=== PATIENT | female | born 1975 | race Caucasian/White ===

== ENCOUNTER → 2018-01-10 | Outpatient (CLI) | payer OTHER ==
--- NOTE | 2018-01-10 11:45 | US ---
EXAMINATION TYPE: US pelvis complete transvag DATE OF EXAM: 01/10/2018 COMPARISON: NONE CLINICAL HISTORY: R10.2 Pelvic Pain. Pain, hx of ablation x a few years ago, no menses TECHNIQUE: . Transabdominal sonographic images of the pelvis were acquired. Transvaginal sonographi c images were medically necessary to better assess the following anatomy: Uterus and endometrium. Date of LMP: Unknown, EXAM MEASUREMENTS: Uterus: 9.2 x 4.5 x 4.4 cm Endometrial Stripe: 0.5 cm Right Ovary: 3.1 x 2.0 x 1.9 cm Left Ovary: 3.2 x 2.1 x 2.1 cm 1. Uterus: Anteverted Heterogenous. Multiple lesions seen. 1- right fundal cystic appearing lesi on = 0.7 x 0.8 x 0.7 cm. 2- right fundal hypoechoic lesion = 1.9 x 2.1 x 1.6 cm 2. Endometrium: Not well delineated, appears heterogenous with echogenic areas seen. 3. Right Ovary: follicles seen 4. Left Ovary: follicles seen, only seen transabdominally 5. Bilateral Adnexa: wnl 6. Posterior cul-de-sac: no free fluid Cervix- fluid seen in cervical canal IMPRESSION: 1. Uterine fibroids.
== END | disposition home or self-care (01) ==
LOC: RADUSWWP 10:22
PROVIDERS: ATTEND Obstetrics & Gynecology
DX: D25.9 Leiomyoma of uterus, unspecified (principal)
CPT/HCPCS: 76830; 76856

== ENCOUNTER → 2018-11-13 | Outpatient (CLI) | payer OTHER ==
--- NOTE | 2018-11-13 12:03 | CONS ---
CONSULTATION DATE OF SERVICE: 11/13/2017 A 43-year-old lady who has been evaluated [facility] the [facility] for possible obstructive sleep apnea-hypopnea syndrome and sleepiness. HISTORY OF PRESENT ILLNESS/SLEEP-WAKE EVALUATION: Patient's usual sleep schedule from 11:30 p.m. to 6 a.m. Usually no problems with falling asleep. No TV in bedroom. She sleeps with her with loud snoring and awakenings from sleep around 5 times with one episode of nocturia. The patient is able to see dreams during the night. She is not sure that happened at the beginning of the night of the second part of the night. During the day, she may feel sleepy. [place] Sleepiness Scale increased to 11. She takes naps usually around 2 pm. She is seeing dreams during naps. PAST MEDICAL HISTORY: Basically negative. Recent episodes of hot flashes. PAST SURGICAL HISTORY: 1. Status post uterus ablation in 2000. 2. Tubal ligation. MEDICATIONS: None. SOCIAL HISTORY: Negative for smoking or using alcohol. FAMILY HISTORY: Snoring and during the sleep of her mother. PHYSICAL EXAM: lady without distress BP 103/69, HR 73, RR 16, height 5, 4, weight 171.2. Body mass index 29.3, temperature 99.0, oxygen saturation at room air 99%. Oropharynx extremely low position of soft palate. Mallampati 4. Slight restriction of nasal breathing bilaterally. Neck 14-1/4 inches in circumference. Abdomen: Slightly obese. Neck Supple, no JVD. Thyroid is not palpable. LUNGS Clear to percussion and to auscultation. Good air exchange. No wheezing or rhonchi. HEART S1, S2 regular. No murmurs, gallops, or rubs. EXTREMITIES No clubbing or cyanosis. [employer] Awake, alert, and oriented X3. Cranial nerves 2 to 7 intact. There is no fasciculation or atrophy. noted. No focal deficits observed. IMPRESSION: 1. Snoring, multiple awakenings from sleep with episodes of nocturia, extremely low position of soft palate, some restriction of nasal breathing, possible obstructive sleep apnea-hypopnea syndrome. 2. Excessive daytime sleepiness. Positive history of dreams during naps. Differential diagnosis would include hypersomnia. 3. Overweight. Body mass index 29.3. 4. Status post uterus ablation and tubal ligation. 5. Hot flashes during the sleep. PLAN: 1. Polysomnography for evaluation of patient's breathing during sleep. 2. CPAP/BiPAP titration if sleep study confirms obstructive sleep apnea-hypopnea syndrome. 3. Referable position during sleep on the side. 4. No driving if patient feels any sleepiness. 5. I will see patient for follow up visit to explain results of testing and following plan. 6. Rico Anderson MD, PhD, FAASM Diplomat of [employer] [facility] [facility] Just take plan from my template in addition to that this put multiple sleep latency test. Thank you very much for referring this patient for consultation. Sincerely. Rico Anderson MD, PhD, FAASM Diplomat of [employer] [facility] [facility] MMODL / DEVONN: [id number] /
== END ==
LOC: SLEEP 10:08
PROVIDERS: ATTEND Internal Medicine
DX: R06.83 Snoring (principal); E66.3 Overweight; N95.1 Menopausal and female climacteric states; Z98.890 Other specified postprocedural states; Z68.29 Body mass index [BMI] 29.0-29.9, adult
CPT/HCPCS: 99211

== ENCOUNTER → 2019-04-09 | Outpatient (CLI) | payer OTHER ==
--- NOTE | 2019-04-09 11:47 | MM ---
Reason for exam: screening (asymptomatic). Last mammogram was performed 2 years and 3 months ago. History: Family history of breast cancer in mother at age 40. Took hormonal contraceptives for 2 years. Physical Findings: A clinical breast exam by your physician is recommended on an annual basis and results should be correlated with mammographic findings. MG Screening Mammo w CAD Bilateral CC and MLO view(s) were taken. Prior study comparison: December 27, 2016, mammogram, performed at [facility]. November 17, 2015, mammogram, performed at [facility]. The breast tissue is heterogeneously dense. This may lower the sensitivity of mammography. No suspicious abnormality on the right. Left upper outer quadrant middle depth focal asymmetry. ASSESSMENT: Incomplete: need additional imaging evaluation, BI-RAD 0 RECOMMENDATION: Special view mammogram of the left breast. If lesion persists on supplemental views, image directed ultrasound is recommended. [facility] will attempt to contact patient to return for supplemental views and ultrasound if indicated.
== END | disposition home or self-care (01) ==
LOC: RADMAMWWP 08:01
PROVIDERS: ATTEND Obstetrics & Gynecology
DX: Z12.31 Encounter for screening mammogram for malignant neoplasm of breast (principal)
CPT/HCPCS: 77067

== ENCOUNTER → 2019-04-16 | Outpatient (CLI) | payer OTHER ==
--- NOTE | 2019-04-16 09:44 | MM ---
Reason for exam: additional evaluation requested from abnormal screening. Last mammogram was performed less than 1 month ago. History: Family history of breast cancer in mother at age 40. Took hormonal contraceptives for 2 years. Physical Findings: Nurse did not find any significant physical abnormalities on exam. MG Work Up Mamm w CAD LT Spot compression CC, spot compression MLO, and ML view(s) were taken of the left breast. Prior study comparison: April 09, 2019, bilateral MG screening mammo w CAD. December 27, 2016, mammogram, performed at [facility]. The breast tissue is heterogeneously dense. This may lower the sensitivity of mammography. The previously seen abnormality resolves on additional views and appears as fibroglandular tissue compatible with summation. Similar to priors back to 2016. These results were verbally communicated with the patient and result sheet given to the patient on 04/16/19. ASSESSMENT: Benign, BI-RAD 2 RECOMMENDATION: Return to routine screening mammogram schedule for both breasts.
== END | disposition home or self-care (01) ==
LOC: RADMAMWWP 08:04
PROVIDERS: ATTEND Obstetrics & Gynecology
DX: R92.8 Other abnormal and inconclusive findings on diagnostic imaging of breast (principal)
CPT/HCPCS: 77065

== ENCOUNTER 2019-06-11 13:59 | Inpatient (IN) | payer OTHER ==
[2019-06-11] MEDS ORDERED: ONDANSETRON 4 MG/2 ML VIAL IVP STA (15:01)
[2019-06-11] MEDS ORDERED: SODIUM CHLORIDE 0.9% 1,000 ML IV STA (15:01)
[2019-06-11] MEDS ORDERED: KETOROLAC 30 MG/ML 1 ML VIAL IVP STA (15:01)
[2019-06-11] MEDS ORDERED: ACETAMINOPHEN TAB 500 MG TAB PO STA (15:01)
[2019-06-11 15:40] LABS: Basophils % (A) 0 %; Eosinophils # (A) 0.1 k/uL (0-0.7); Eosinophils % (A) 1 %; HCT 37.4 % (34.0-46.0); HGB 12.2 gm/dL (11.4-16.0); Lymphocytes # (A) 0.8 k/uL (1.0-4.8); Lymphocytes % (A) 5 %; MCH 27.2 pg (25.0-35.0); MCHC 32.7 g/dL (31.0-37.0); MCV 83.3 fL (80.0-100.0); Mean Platelet Volume 6.6; Monocytes # (A) 0.7 k/uL (0-1.0); Monocytes % (A) 4 %; Neutrophils # (A) 17.2 k/uL (1.3-7.7); Neutrophils % (A) 91 %; Platelet Count 401 k/uL (150-450); RBC 4.48 m/uL (3.80-5.40); RDW 15.3 % (11.5-15.5); WBC 18.9 k/uL (3.8-10.6)
[2019-06-11 15:43] LABS: Appearance,Urine Cloudy (Clear); Bacteria,Urine Moderate /hpf; Bilirubin,Urine Negative (Negative); Blood,Urine Negative (Negative); Color,Urine Yellow; Glucose,Urine (UA) Negative (Negative); Ketones,Urine 1+ (Negative); Leukocyte Esterase,Urine Moderate (Negative); Mucus,Urine Many /hpf; Nitrite,Urine Negative (Negative); Protein,Urine Negative (Negative); RBC,Urine 2 /hpf (0-5); Specific Gravity,Urine 1.015 (1.001-1.035); Squamous Epithelial Cell,Urine 6 /hpf (0-4); Urobilinogen,Urine <2.0 mg/dL (<2.0)
[2019-06-11 15:47] LABS: ALT 10 U/L (9-52); AST 17 U/L (14-36); African American GFR (CKD) >90 (>60 ml/min/1.73 sqM); Albumin 4.3 g/dL (3.5-5.0); Alkaline Phosphatase 50 U/L (38-126); Anion Gap 12 mmol/L; Blood Urea Nitrogen 7 mg/dL (7-17); Calcium 9.3 mg/dL (8.4-10.2); Carbon Dioxide 24 mmol/L (22-30); Chloride 101 mmol/L (98-107); Glucose 125 mg/dL (74-99); Potassium 3.9 mmol/L (3.5-5.1); Sodium 137 mmol/L (137-145); Total Bilirubin 0.9 mg/dL (0.2-1.3); Total Protein 7.2 g/dL (6.3-8.2)
--- NOTE | 2019-06-11 16:09 | CT ---
EXAMINATION TYPE: CT abdomen pelvis w con DATE OF EXAM: 06/11/2019 COMPARISON: Pelvic pain and fever HISTORY: Pelvic pain with fever. CT DLP: 847.8 mGycm Automated exposure control for dose reduction was used. CONTRAST: CT scan of the abdomen pelvis is performed with IV Contrast, patient injected with 100 mL of Isovue 3 00. FINDINGS- LUNG BASES-subsegmental changes involving the lung bases are suggestive of atelectasis.. LIVER/GB- No gross abnormality is appreciated. PANCREAS- No gross abnormality is seen. SPLEEN- No gross abnormality is seen. ADRENALS- No gross abnormality is seen. KIDNEYS/BLADDER- no hydronephrosis nephrolithiasis or renal mass. BOWEL-there is inflammatory change within the pelvis with thickened wall the sigmoid colon and divert icula in the region suggestive of acute diverticulitis. Appendix appears of normal caliber. No eviden ce of bowel obstruction.. LYMPH NODES- No greater than 1cm abdominal or pelvic lymph nodes are appreciated. Shotty adenopathy in the mesentery right lower quadrant. OSSEOUS STRUCTURES- No significant abnormality is seen. OTHER- aorta of normal caliber. There is a cyst in the left adnexa likely ovarian measuring approxim ately 2 cm. Tiny hypodensity within the uterine body is too small to characterize. Trace amount of fr ee fluid in the pelvis. There is small amount soft tissue attenuation anterior to the left so as musc le which could represent a small lymph node or small amount of free fluid best noted on axial image 5 8 measuring 1.4 cm. There is a retroaortic left renal vein. IMPRESSION- 1. Acute sigmoid diverticulitis. There is a 2 cm cystic lesion left adnexa which is likely related to an ovarian cyst rather than adjacent abscess. Correlation with pelvic ultrasound suggested to confir m ovarian etiology. 2. There is a 1.4 cm low density anterior to left psoas muscle axial image 57 may represent a small f luid collection or lymph node. This this could be followed to resolution.
--- NOTE | 2019-06-11 16:28 | ED ---
Abdominal Pain HPI - General Source: RN notes reviewed <Walt Sesay - Last Filed: 06/11/19 17:01> - General Source: patient Mode of arrival: wheelchair Limitations: no limitations <Christina Bobo - Last Filed: 06/11/19 19:11> - General Chief Complaint: Abdominal Pain Stated Complaint: Abd pain, fever Time Seen by Provider: 06/11/19 14:46 - History of Present Illness Initial Comments: Patient is a 44-year-old female presenting to the emergency Department with complaints of lower abdominal pain and fever 2 days. Patient states her abdominal pain started yesterday on the way back from [place]. Patient states it was tolerable at first and then has progressed to severe pain. Patient states the pain has always been in the lower abdomen, all the way across. Patient denies any abdominal surgeries in the past. Patient states the pain w alannah her up last night and she was unable to sleep. Patient took her temperature this morning which was 101 deg. Patient also admits to one episode of vomiting and current nausea. Patient states she had an ablation performed over 10 years ago. Patient has no other pertinent past medical history. Patient denies chest pain, cough, diarrhea. Patient's last bowel movement was today and was normal. No other complaints at this time. (Christina Bobo) - Related Data Home Medications Medication Instructions Recorded Confirmed No Known Home Medications 06/11/19 06/11/19 Allergies Allergy/AdvReac Type Severity Reaction Status Date / Time No Known Allergies Allergy Verified 06/11/19 14:46 Review of Systems ROS Other: All systems not noted in ROS Statement are negative. <Walt Sesay - Last Filed: 06/11/19 17:01> ROS Other: All systems not noted in ROS Statement are negative. <Christina Bobo - Last Filed: 06/11/19 19:11> ROS Statement: Those systems with pertinent positive or pertinent negative responses have been documented in the HPI. Past Medical History Past Medical History: No Reported History History of Any Multi-Drug Resistant Organisms: None Reported Past Surgical History: Ablation, Tubal Ligation Past Psychological History: No Psychological Hx Reported Smoking Status: Never smoker Past Alcohol Use History: None Reported Past Drug Use History: None Reported <Christina Bobo - Last Filed: 06/11/19 19:11> General Exam Limitations: no limitations <Christina Bobo - Last Filed: 06/11/19 19:11> - General Exam Comments Initial Comments: GENERAL: Well-appearing, well-nourished and in no acute distress, but appears uncomfortable. HEAD: Atraumatic, normocephalic. EYES: Pupils equal round and reactive to light, extraocular movements intact, sclera anicteric, conjunctiva are normal. ENT: TMs normal, nares patent, oropharynx clear without exudates. Moist mucous membranes. NECK: Normal range of motion, supple without lymphadenopathy or JVD. LUNGS: Breath sounds clear to auscultation bilaterally and equal. No wheezes rales or rhonchi. HEART: Regular rate and rhythm without murmurs, rubs or gallops. ABDOMEN: Patient has generalized abdominal tenderness, more increase in the lower abdomen region. Soft, normoactive bowel sounds. No rebound. No masses appreciated. : Deferred EXTREMITIES: Normal range of motion, no pitting or edema. No clubbing or cyanosis. NEUROLOGICAL: Cranial nerves II through XII grossly intact. Normal speech, normal gait. PSYCH: Normal mood, normal affect. SKIN: Warm, Dry, slightly diaphoretic, normal turgor, no rashes or lesions noted. (Christina Bobo) Course <Walt Sesay - Last Filed: 06/11/19 17:01> Vital Signs 06/11/19 06/11/19 06/11/19 14:27 16:29 17:38 Temperature 102.9 F H 99.2 F 98.9 F Pulse Rate 115 H 95 91 Respiratory 16 20 18 Rate Blood Pressure 103/70 94/58 99/55 O2 Sat by Pulse 97 95 98 Oximetry - Reevaluation(s) Reevaluation #1: 06/11/19 17:01 PA supervision: I proceeded [id number] evaluation the patient she does present with complaints of abdominal pain is started yesterday he does present with complaints of fever she has have elevated white blood cell count and CAT scan evidence of diverticulitis of the sigmoid colon. She will be admitted I did discuss the case with Dr. Brantley. (Walt Sesay) Medical Decision Making - Lab Data Result diagrams: 06/11/19 15:20 06/11/19 15:20 <Walt Sesay - Last Filed: 06/11/19 17:01> - Lab Data Result diagrams: 06/11/19 15:20 06/11/19 15:20 <Christina Bobo - Last Filed: 06/11/19 19:11> - Medical Decision Making Patient is a 44-year-old female complaining of lower abdominal pain and nausea since yesterday. Upon arrival to the ER patient had 102.9 fever, heart rate 115, and appeared to be in a lot of discomfort. On exam patient had severe tenderness of the lower abdominal region. Denies history of abdominal surgeries. CBC showed white count 18.9, neutrophils 17.2. CMP is within normal limits. Lactic acid is 1.1. UA shows 10 WBC, moderate amount of bacteria, 1+ ketones. CT of the abdomen reveals acute sigmoid diverticulitis. Findings were discussed with Dr. Sesay. Patient will be admitted for IV antibiotics. Patient was given Toradol, fluids, Tylenol. Vital signs did improve to temperature of 99.2, heart rate 95. Blood pressure is 94/58. Patient was accepted by Dr. Brantley. One dose of Flagyl and Levaquin was started in the ER. (Christina Bobo) - Lab Data Lab Results 06/11/19 06/11/19 06/11/19 Range/Units 15:20 15:20 15:20 WBC 18.9 H (3.8-10.6) k/uL RBC 4.48 (3.80-5.40) m/uL Hgb 12.2 (11.4-16.0) gm/dL Hct 37.4 (34.0-46.0) % MCV 83.3 (80.0-100.0) fL MCH 27.2 (25.0-35.0) pg MCHC 32.7 (31.0-37.0) g/dL RDW 15.3 (11.5-15.5) % Plt Count 401 (150-450) k/uL Neutrophils % 91 % Lymphocytes % 5 % Monocytes % 4 % Eosinophils % 1 % Basophils % 0 % Neutrophils # 17.2 H (1.3-7.7) k/uL Lymphocytes # 0.8 L (1.0-4.8) k/uL Monocytes # 0.7 (0-1.0) k/uL Eosinophils # 0.1 (0-0.7) k/uL Basophils # 0.0 (0-0.2) k/uL Sodium 137 (137-145) mmol/L Potassium 3.9 (3.5-5.1) mmol/L Chloride 101 (98-107) mmol/L Carbon Dioxide 24 (22-30) mmol/L Anion Gap 12 mmol/L BUN 7 (7-17) mg/dL Creatinine 0.44 L (0.52-1.04) mg/dL Est GFR (CKD-EPI)AfAm >90 (>60 ml/min/1.73 sqM) Est GFR (CKD-EPI)NonAf >90 (>60 ml/min/1.73 sqM) Glucose 125 H (74-99) mg/dL Plasma Lactic Acid Dewayne (0.7-2.0) mmol/L Calcium 9.3 (8.4-10.2) mg/dL Total Bilirubin 0.9 (0.2-1.3) mg/dL AST 17 (14-36) U/L ALT 10 (9-52) U/L Alkaline Phosphatase 50 (38-126) U/L Total Protein 7.2 (6.3-8.2) g/dL Albumin 4.3 (3.5-5.0) g/dL Urine Color Urine Appearance (Clear) Urine pH (5.0-8.0) Ur Specific [place] (1.001-1.035) Urine Protein (Negative) Urine Glucose (UA) (Negative) Urine Ketones (Negative) Urine Blood (Negative) Urine Nitrite (Negative) Urine Bilirubin (Negative) Urine Urobilinogen (<2.0) mg/dL Ur Leukocyte Esterase (Negative) Urine RBC (0-5) /hpf Urine WBC (0-5) /hpf Ur Squamous Epith Cells (0-4) /hpf Urine Bacteria (None) /hpf Urine Mucus (None) /hpf Urine HCG, Qual Not Detected (Not Detectd) 06/11/19 06/11/19 Range/Units 15:20 15:20 WBC (3.8-10.6) k/uL RBC (3.80-5.40) m/uL Hgb (11.4-16.0) gm/dL Hct (34.0-46.0) % MCV (80.0-100.0) fL MCH (25.0-35.0) pg MCHC (31.0-37.0) g/dL RDW (11.5-15.5) % Plt Count (150-450) k/uL Neutrophils % % Lymphocytes % % Monocytes % % Eosinophils % % Basophils % % Neutrophils # (1.3-7.7) k/uL Lymphocytes # (1.0-4.8) k/uL Monocytes # (0-1.0) k/uL Eosinophils # (0-0.7) k/uL Basophils # (0-0.2) k/uL Sodium (137-145) mmol/L Potassium (3.5-5.1) mmol/L Chloride (98-107) mmol/L Carbon Dioxide (22-30) mmol/L Anion Gap mmol/L BUN (7-17) mg/dL Creatinine (0.52-1.04) mg/dL Est GFR (CKD-EPI)AfAm (>60 ml/min/1.73 sqM) Est GFR (CKD-EPI)NonAf (>60 ml/min/1.73 sqM) Glucose (74-99) mg/dL Plasma Lactic Acid Dewayne 1.1 (0.7-2.0) mmol/L Calcium (8.4-10.2) mg/dL Total Bilirubin (0.2-1.3) mg/dL AST (14-36) U/L ALT (9-52) U/L Alkaline Phosphatase (38-126) U/L Total Protein (6.3-8.2) g/dL Albumin (3.5-5.0) g/dL Urine Color Yellow Urine Appearance Cloudy H (Clear) Urine pH 5.0 (5.0-8.0) Ur Specific [place] 1.015 (1.001-1.035) Urine Protein Negative (Negative) Urine Glucose (UA) Negative (Negative) Urine Ketones 1+ H (Negative) Urine Blood Negative (Negative) Urine Nitrite Negative (Negative) Urine Bilirubin Negative (Negative) Urine Urobilinogen <2.0 (<2.0) mg/dL Ur Leukocyte Esterase Moderate H (Negative) Urine RBC 2 (0-5) /hpf Urine WBC 10 H (0-5) /hpf Ur Squamous Epith Cells 6 H (0-4) /hpf Urine Bacteria Moderate H (None) /hpf Urine Mucus Many H (None) /hpf Urine HCG, Qual (Not Detectd) Disposition <Walt Sesay - Last Filed: 06/11/19 17:01> Is patient prescribed a controlled substance at d/c from ED?: No Decision Date: 06/11/19 Decision Time: 17:05 <Christina Bobo - Last Filed: 06/11/19 19:11> Clinical Impression: Sigmoid diverticulitis Disposition: ADMITTED IP TO THIS HOSP Condition: Good
[2019-06-11] MEDS ORDERED: PIPERACILLIN-TAZOBACTAM 3.375 GM in SODIUM CHLORIDE 0.9% 100 ML IVPB STA (16:50)
[2019-06-11] MEDS ORDERED: LEVOFLOXACIN 750MG-D5W PMX 750 MG in DEXTROSE/WATER 1 150ML.BAG IVPB STA (17:04)
[2019-06-11] MEDS ORDERED: ACETAMINOPHEN TAB 325 MG TAB PO PRN (17:06)
[2019-06-11] MEDS ORDERED: oxyCODONE-APAP 5-325MG 1 EACH TAB PO PRN (17:06)
[2019-06-11] MEDS ORDERED: metroNIDAZOLE-NS PMX 500 MG in SALINE 1 100ML.BAG IVPB STA (17:06)
[2019-06-11] MEDS ORDERED: NALOXONE 0.4 MG/ML 1 ML VIAL IV PRN (17:06)
[2019-06-11] MEDS ORDERED: ONDANSETRON 4 MG/2 ML VIAL IVP PRN (17:06)
[2019-06-11] MEDS: SODIUM CHLORIDE 0.9% 1,000 ML IV SCH (17:45)
[2019-06-12] MEDS: KETOROLAC 30 MG/ML 1 ML VIAL IVP PRN ×2 (08:36→20:38)
[2019-06-12] MEDS: metroNIDAZOLE-NS PMX 500 MG in SALINE 1 100ML.BAG IVPB SCH ×2 (08:45→17:11)
[2019-06-12] MEDS: LEVOFLOXACIN 500MG-D5W PMX 500 MG in DEXTROSE/WATER 1 100ML.BAG IVPB SCH (09:59)
--- NOTE | 2019-06-12 14:33 | P.HPIM ---
History of Present Illness H&P Date: 06/12/19 Chief Complaint: Abdominal pain This is a 44-year-old female patient of Dr. Odonnell with no significant past medical history. The patient developed abdominal pain Saturday afternoon and by nighttime the pains were waking her up. In the morning she was feeling worse. Pain was worse when she ambulated. By 1 in the afternoon she felt hot and she checked her temperature which was 101. She does complain of some bloating with a little gas. Her last bowel movement was yesterday morning. She denies any blood in her stools. She denies any seeds or nuts intake lately. She denies any nonsteroidal anti-inflammatories. Patient denies any dysuria. She does complain of bilateral low abdominal/pelvic pain. She does have increased pain with deep breathing. She has had multiple colonoscopies in the past starting at 13 years of age which haven't had no s ignificant findings.. Patient presented to [facility] emergency center and was found to be febrile at 102.9, white count 18.9, electrolytes within normal limits, liver function tests normal, urine hCG was negative. Urinalysis was leukoesterase moderate, squamous cells 6, bacteria moderate. Lactic acid 1.1. CAT scan of the abdomen and pelvis revealed acute sigmoid diverticulitis. 2 cm cystic lesion in the left adnexa which is likely related to ovarian cysts rather than abscess. There is a 1.4 cm low density anterior to left psoas muscle may represent small fluid collection or lymph node. Patient was started on Levaquin, Flagyl as well as Zofran for nausea, she received 1 L of IV fluids and admitted to the MedSur floor. She was started on clear liquid diet. Blood c ulture has been obtained. Review of Systems Constitutional: Reports chills, Reports fever, Denies chronic headaches, Denies fatigue, Denies lethargy, Denies malaise, Denies poor appetite, Denies weakness, Denies weight loss Ears, nose, mouth and throat: Denies dysphagia, Denies mouth pain, Denies nasal congestion, Denies nasal discharge, Denies vertigo Cardiovascular: Denies chest pain, Denies decreased exercise tolerance, Denies dyspnea on exertion, Denies edema, Denies leg edema, Denies lightheadedness, Denies orthopnea, Denies palpitations, Denies shortness of breath, Denies syncope Respiratory: Denies congestion, Denies cough, Denies cough with sputum, Denies dyspnea, Denies excessive sputum, Denies hemoptysis, Denies home oxygen, Denies wheezing Gastrointestinal: Reports abdominal pain, Reports bloating, Reports nausea, Denies constipation, Denies diarrhea, Denies vomiting Genitourinary: Denies dysuria, Denies hematuria, Denies urgency, Denies urinary frequency Musculoskeletal: Denies frequent falls, Denies gait dysfunction, Denies muscle weakness, Denies myalgias Integumentary: Denies pruritus, Denies rash, Denies wounds Neurological: Denies aphasia, Denies change in mentation, Denies change in speech, Denies confusion, Denies numbness, Denies seizures, Denies weakness Psychiatric: Denies anxiety, Denies depression Endocrine: Denies fatigue, Denies weight change Past Medical History Past Medical History: No Reported History History of Any Multi-Drug Resistant Organisms: None Reported Past Surgical History: Ablation, Tubal Ligation Past Psychological History: No Psychological Hx Reported Smoking Status: Never smoker Past Alcohol Use History: None Reported Additional Past Alcohol Use History / Comment(s): Patient is a lifelong nonsmoker, no illicit drug use, no alcohol use. Patient is a [id number] mom. She has 2 boys that were premature but have no medical problems. Past Drug Use History: None Reported - Past Family History Father Additional Family Medical History / Comment(s): Patient does not know her father. Mother Additional Family Medical History / Comment(s): Mother at age 45 from myocardial infarction. Brother(s) Additional Family Medical History / Comment(s): Patient has 1 brother with no major medical problems. No sisters. Medications and Allergies Home Medications Medication Instructions Recorded Confirmed Type No Known Home Medications 06/11/19 06/11/19 History Allergies Allergy/AdvReac Type Severity Reaction Status Date / Time No Known Allergies Allergy Verified 06/11/19 14:46 Physical Exam Vitals: Vital Signs Temp Pulse Pulse Resp BP BP Pulse Ox 06/12/19 06:53 98.0 F 85 16 105/54 93 L 06/12/19 01:17 98.5 F 82 17 104/66 99 06/11/19 23:12 85 17 06/11/19 19:30 98.2 F 85 17 94/60 97 06/11/19 18:00 98.9 F 79 16 95/62 96 06/11/19 17:38 98.9 F 91 18 99/55 98 06/11/19 16:29 99.2 F 95 20 94/58 95 06/11/19 14:27 102.9 F H 115 H 16 103/70 97 Intake and Output 06/11/19 06/12/19 06/12/19 22:59 06:59 14:59 Other: Voiding Method Toilet # Voids 0 # Bowel Movements 0 Gen: This is a obese 44-year-old female. Patient is resting in bed and appears to be comfortable and in no acute distress. HEENT: Head is atraumatic, normocephalic. Pupils equal, round. Sclerae is anicteric. NECK: Supple. No JVD. No lymphadenopathy. No thyromegaly. LUNGS: Clear to auscultation. No wheezes or rhonchi. No intercostal retractions. HEART: Regular rate and rhythm. No murmur. ABDOMEN: Soft. Bowel sounds are present. No masses. Mild lower abdominal tenderness. EXTREMITIES: No pedal edema. No calf tenderness. NEUROLOGICAL: Patient is awake, alert and oriented x3. Cranial nerves 2 through 12 are grossly intact. Results CBC & Chem 7: 06/11/19 15:20 06/11/19 15:20 Labs: Abnormal Lab Results - Last 24 Hours (Table) 06/11/19 06/11/19 06/11/19 Range/Units 15:20 15:20 15:20 WBC 18.9 H (3.8-10.6) k/uL Neutrophils # 17.2 H (1.3-7.7) k/uL Lymphocytes # 0.8 L (1.0-4.8) k/uL Creatinine 0.44 L (0.52-1.04) mg/dL Glucose 125 H (74-99) mg/dL Urine Appearance Cloudy H (Clear) Urine Ketones 1+ H (Negative) Ur Leukocyte Esterase Moderate H (Negative) Urine WBC 10 H (0-5) /hpf Ur Squamous Epith Cells 6 H (0-4) /hpf Urine Bacteria Moderate H (None) /hpf Urine Mucus Many H (None) /hpf Thrombosis Risk Factor Assmnt - DVT/VTE Prophylaxis DVT/VTE Prophylaxis: Mechanical Prophylaxis ordered - Choose All That Apply Any of the Below Risk Factors Present?: Yes Each Factor Represents 1 point: Age 41-60 years, Obesity (BMI >25) Other Risk Factors: No Thrombosis Risk Factor Assessment Total Risk Factor Score: 2 Thrombosis Risk Factor Assessment Level: Low Risk Assessment and Plan Plan: 1. Acute diverticulitis. Patient admitted to the MedSur floor, continue Zofran for nausea. Continue Toradol for pain control. Patient resumed on Levaquin and Flagyl IV piggyback. Continue IV fluids. Diet is currently clear liquids. 2. Sepsis with leukocytosis and fever secondary to diverticulitis. Continue as in #1. 3. Hyperglycemia with no history of diabetes. 4. DVT prophylaxis. SCDs and KWAME hose. 5. GI prophylaxis. IV Protonix. Patient will be admitted to the hospital for a minimum of 2 night stay. Discharge plan: Return home Impression and plan of care have been directed as dictated by the signing physician. Opal Ni nurse practitioner acting as scribe for signing physician.
[2019-06-12] MEDS: SODIUM CHLORIDE 0.9% 1,000 ML IV SCH (14:34)
[2019-06-13] MEDS: metroNIDAZOLE-NS PMX 500 MG in SALINE 1 100ML.BAG IVPB SCH ×3 (00:39→16:28)
[2019-06-13] MEDS: LEVOFLOXACIN 500MG-D5W PMX 500 MG in DEXTROSE/WATER 1 100ML.BAG IVPB SCH (09:24)
[2019-06-13] MEDS: SODIUM CHLORIDE 0.9% 1,000 ML IV SCH ×2 (09:25→16:33)
[2019-06-13 09:37] LABS: HCT 34.6 % (34.0-46.0); HGB 10.9 gm/dL (11.4-16.0); MCH 27.3 pg (25.0-35.0); MCHC 31.7 g/dL (31.0-37.0); MCV 86.1 fL (80.0-100.0); Mean Platelet Volume 6.7; Platelet Count 334 k/uL (150-450); RBC 4.02 m/uL (3.80-5.40); RDW 15.3 % (11.5-15.5); WBC 6.8 k/uL (3.8-10.6)
--- NOTE | 2019-06-13 10:01 | P.GSCN ---
History of Present Illness Consult date: 06/13/19 History of present illness: 44-year-old female presented to the emergency department with complaints of abdominal pain. She states that she began feeling abdominal pain on Saturday and the pain worsened throughout the day. She also developed a fever and then presented to the emergency department. On workup, the patient was found to have inflammatory changes around the colon suspicious for diverticulitis. She states that since that time she is only had flatus and denies any bowel movement. She denies any nausea or vomiting. She states that she has had 2 colonoscopies in the past, one when she was 13 years old and one greater than 10 years ago due to suspicion of colitis. She denies any family history of colon cancer, however states she does not know her father's side of the family. She has no additional complaints at this time. Currently afebrile. Review of Systems All systems: negative Past Medical History Past Medical History: No Reported History History of Any Multi-Drug Resistant Organisms: None Reported Past Surgical History: Ablation, Tubal Ligation Past Psychological History: No Psychological Hx Reported Smoking Status: Never smoker Past Alcohol Use History: None Reported Additional Past Alcohol Use History / Comment(s): Patient is a lifelong nonsmoker, no illicit drug use, no alcohol use. Patient is a [id number] mom. She has 2 boys that were premature but have no medical problems. Past Drug Use History: None Reported - Past Family History Father Additional Family Medical History / Comment(s): Patient does not know her father. Mother Additional Family Medical History / Comment(s): Mother at age 45 from myocardial infarction. Brother(s) Additional Family Medical History / Comment(s): Patient has 1 brother with no major medical problems. No sisters. Medications and Allergies Home Medications Medication Instructions Recorded Confirmed Type No Known Home Medications 06/11/19 06/11/19 History Allergies Allergy/AdvReac Type Severity Reaction Status Date / Time No Known Allergies Allergy Verified 06/11/19 14:46 Surgical - Exam Osteopathic Statement: *. No significant issues noted on an osteopathic structural exam other than those noted in the History and Physical/Consult. Vital Signs Temp Pulse Resp BP Pulse Ox 102.9 F H 115 H 16 103/70 97 06/11/19 14:27 06/11/19 14:27 06/11/19 14:27 06/11/19 14:27 06/11/19 14:27 - General well nourished, no distress - Eyes PERRL - ENT no hearing loss - Neck trachea midline - Respiratory No difficulty with respiration - Abdomen Soft, tender to palpation in bilateral lower quadrants, mild distention, no rebound, no guarding - Psychiatric oriented to time, oriented to person, oriented to place Results - Labs 06/13/19 09:21 06/11/19 15:20 Abnormal Lab Results - Last 24 Hours (Table) 06/13/19 Range/Units 09:21 Hgb 10.9 L (11.4-16.0) gm/dL Microbiology - Last 24 Hours (Table) 06/12/19 13:00 Urine Culture - Preliminary Urine,Voided 06/11/19 15:15 Blood Culture - Preliminary Blood No Growth after 24 hours - Imaging CT scan - abdomen: report reviewed, image reviewed CT scan - chest: report reviewed, image reviewed (Inflammatory changes surrounding the sigmoid colon, ovarian cyst) Assessment and Plan (1) Sigmoid diverticulitis Narrative/Plan: 44-year-old female with sigmoid diverticulitis - I did review the imaging and there are inflammatory changes noted around the s igmoid colon in the midportion of the pelvis. There does also appear to be a cystlike structure in the adnexa. This is less likely an abscess, however ultrasound may give a more complete cancer. She is scheduled for ultrasound today. - She does state that her pain has improved since her admission. Continue antibiotics - Continue clear liquid diet. At this time, the patient still does have some pubic tenderness and I would not advance her diet just yet. - We will continue to closely monitor. Thank you for this consultation, I look forward in providing in this patient's care. Current Visit: Yes Status: Acute Code(s): K57.32 - DVTRCLI OF LG INT W/O PERFORATION OR ABSCESS W/O BLEEDING SNOMED Code(s): 988150110
[2019-06-13 10:05] LABS: ALT 15 U/L (9-52); AST 15 U/L (14-36); African American GFR (CKD) >90 (>60 ml/min/1.73 sqM); Albumin 3.4 g/dL (3.5-5.0); Alkaline Phosphatase 36 U/L (38-126); Anion Gap 6 mmol/L; Blood Urea Nitrogen 8 mg/dL (7-17); Calcium 8.5 mg/dL (8.4-10.2); Carbon Dioxide 28 mmol/L (22-30); Chloride 106 mmol/L (98-107); Glucose 138 mg/dL (74-99); Potassium 3.9 mmol/L (3.5-5.1); Sodium 140 mmol/L (137-145); Total Bilirubin 0.3 mg/dL (0.2-1.3); Total Protein 5.9 g/dL (6.3-8.2)
--- NOTE | 2019-06-13 11:22 | US ---
EXAMINATION TYPE: US pelvic complete DATE OF EXAM: 06/13/2019 COMPARISON: CT 06/11/2019 CLINICAL HISTORY: r/o pelvic abscess. Area visualized left adnexa on previous CT ovarian cyst vs absc ess TECHNIQUE: . Transabdominal sonographic images of the pelvis were acquired. Date of LMP: 10 years ago EXAM MEASUREMENTS: Uterus: 10.7 x 5.5 x 5.9 cm Endometrial Stripe: 0.3 cm Right Ovary: 2.2 x 2.0 x 2.0 cm Left Ovary: 4.0 x 2.4 x 3.1 cm 1. Uterus: Anteverted Bulky and heterogeneous. Hypoechoic area visualized measuring 2.6 x 1.5 x 2. 4 cm, probable fibroid 2. Endometrium: wnl 3. Right Ovary: wnl 4. Left Ovary: Cystic area visualized measuring 2.0 cm 5. Bilateral Adnexa: wnl 6. Posterior cul-de-sac: wnl IMPRESSION: 1. FIBROID UTERUS. I COULD NOT EXCLUDE ADENOMYOSIS. 2. 2 CM, LEFT OVARIAN CYST, LIKELY PHYSIOLOGIC.
--- NOTE | 2019-06-13 13:52 | P.PN ---
Subjective Progress Note Date: 06/13/19 This is a 44-year-old female patient of Dr. Odonnell with no significant past medical history. The patient developed abdominal pain Saturday afternoon and by nighttime the pains were waking her up. In the morning she was feeling worse. Pain was worse when she ambulated. By 1 in the afternoon she felt hot and she checked her temperature which was 101. She does complain of some bloating with a little gas. Her last bowel movement was yesterday morning. She denies any blood in her stools. She denies any seeds or nuts intake lately. She denies any nonsteroidal anti-inflammatories. Patient denies any dysuria. She does complain of bilateral low abdominal/pelvic pain. She does have increased pain with deep breathing. She has had multiple colonoscopies in the past starting at 13 years of age which haven't had no significant findings.. Patient presented to [facility] emergency center and was found to be febrile at 102.9, white count 18.9, electrolytes within normal limits, liver function tests normal, urine hCG was negative. Urinalysis was leukoesterase moderate, squamous cells 6, bacteria moderate. Lactic acid 1.1. CAT scan of the abdomen and pelvis revealed acute sigmoid diverticulitis. 2 cm cystic lesion in the left adnexa which is likely related to ovarian cysts rather than abscess. There is a 1.4 cm low density anterior to left psoas muscle may represent small fluid collection or lymph node. Patient was started on Levaquin, Flagyl as well as Zofran for nausea, she received 1 L of IV fluids and admitted to the MedSur floor. She was started on clear liquid diet. Blood culture has been obtained. 06/12: Pelvic ultrasound ordered to evaluate for abscess. Consult added for general surgery. Patient continues to have diffuse tenderness. No bowel movement. IV fluids will be continued as well as Levaquin and Flagyl as well as clear liquid diet. White count is down to 6.8, creatinine 0.5, electrolytes within normal limits. Liver function tests within normal limits. Patient has been afebrile since admission, blood pressure 92/56, heart rate 76, pulse ox 97% on room air. Pelvic ultrasound revealed fibroid uterus could not exclude adenomyosis. 2 cm left ovarian cyst likely physiologic. Objective - Vital Signs Vital signs: Vital Signs Temp 98.3 F 06/13/19 07:06 Pulse 76 06/13/19 07:06 Resp 16 06/13/19 07:06 BP 92/56 06/13/19 07:06 Pulse Ox 97 06/13/19 07:06 Intake & Output 06/12/19 06/13/19 06/13/19 18:59 06:59 18:59 Intake Total 700 Balance 700 Intake: Oral 700 Other: Voiding Method Toilet Toilet # Voids 2 - Exam Review of Systems Constitutional: Reports chills, Reports fever, Denies chronic headaches, Denies fatigue, Denies lethargy, Denies malaise, Denies poor appetite, Denies weakness, Denies weight loss Ears, nose, mouth and throat: Denies dysphagia, Denies mouth pain, Denies nasal congestion, Denies nasal discharge, Denies vertigo Cardiovascular: Denies chest pain, Denies decreased exercise tolerance, Denies dyspnea on exertion, Denies edema, Denies leg edema, Denies lightheadedness, Denies orthopnea, Denies palpitations, Denies shortness of breath, Denies syncope Respiratory: Denies congestion, Denies cough, Denies cough with sputum, Denies dyspnea, Denies excessive sputum, Denies hemoptysis, Denies home oxygen, Denies wheezing Gastrointestinal: Reports abdominal pain-improving, Reports bloating, Reports nausea, Denies constipation, Denies diarrhea, Denies vomiting Genitourinary: Denies dysuria, Denies hematuria, Denies urgency, Denies urinary frequency Musculoskeletal: Denies frequent falls, Denies gait dysfunction, Denies muscle weakness, Denies myalgias Integumentary: Denies pruritus, Denies rash, Denies wounds Neurological: Denies aphasia, Denies change in mentation, Denies change in speech, Denies confusion, Denies numbness, Denies seizures, Denies weakness Psychiatric: Denies anxiety, Denies depression Endocrine: Denies fatigue, Denies weight change Gen: This is a obese 44-year-old female. Patient is resting in bed and appears to be comfortable and in no acute distress. HEENT: Head is atraumatic, normocephalic. Pupils equal, round. Sclerae is anicteric. NECK: Supple. No JVD. No lymphadenopathy. No thyromegaly. LUNGS: Clear to auscultation. No wheezes or rhonchi. No intercostal retractions. HEART: Regular rate and rhythm. No murmur. ABDOMEN: Soft. Bowel sounds are present. No masses. Diffuse abdominal tenderness. EXTREMITIES: No pedal edema. No calf tenderness. NEUROLOGICAL: Patient is awake, alert and oriented x3. Cranial nerves 2 through 12 are grossly intact. - Labs CBC & Chem 7: 06/13/19 09:21 06/13/19 09:21 Labs: Microbiology - Last 24 Hours (Table) 06/12/19 13:00 Urine Culture - Preliminary Urine,Voided 06/11/19 15:15 Blood Culture - Preliminary Blood No Growth after 24 hours Assessment and Plan Plan: 1. Acute diverticulitis. Patient admitted to the [facility] floor, continue Zofran for nausea. Continue Toradol for pain control. Patient resumed on Levaquin and Flagyl IV piggyback. Continue IV fluids. Diet is currently clear liquids. Consult with general surgery appreciated. 2. Sepsis with leukocytosis and fever secondary to diverticulitis. Continue as in #1. 3. Hyperglycemia with no history of diabetes. 4. DVT prophylaxis. SCDs and KWAME hose. 5. GI prophylaxis. IV Protonix. Discharge plan: Return home Impression and plan of care have been directed as dictated by the signing physician. Opal Ni nurse practitioner acting as scribe for signing physician.
[2019-06-13 19:46] VITALS: TEMP 98.3
[2019-06-14] MEDS: metroNIDAZOLE-NS PMX 500 MG in SALINE 1 100ML.BAG IVPB SCH ×2 (00:13→07:41)
[2019-06-14 07:11] LABS: HCT 33.4 % (34.0-46.0); HGB 11.1 gm/dL (11.4-16.0); MCH 27.6 pg (25.0-35.0); MCHC 33.3 g/dL (31.0-37.0); MCV 82.9 fL (80.0-100.0); Mean Platelet Volume 6.3; Platelet Count 336 k/uL (150-450); RBC 4.03 m/uL (3.80-5.40); RDW 14.7 % (11.5-15.5); WBC 7.2 k/uL (3.8-10.6)
[2019-06-14 07:23] LABS: ALT 21 U/L (9-52); AST 18 U/L (14-36); African American GFR (CKD) >90 (>60 ml/min/1.73 sqM); Albumin 3.4 g/dL (3.5-5.0); Alkaline Phosphatase 40 U/L (38-126); Anion Gap 6 mmol/L; Blood Urea Nitrogen 5 mg/dL (7-17); Calcium 8.6 mg/dL (8.4-10.2); Carbon Dioxide 28 mmol/L (22-30); Chloride 105 mmol/L (98-107); Glucose 84 mg/dL (74-99); Potassium 4.3 mmol/L (3.5-5.1); Sodium 139 mmol/L (137-145); Total Bilirubin 0.3 mg/dL (0.2-1.3); Total Protein 5.8 g/dL (6.3-8.2)
[2019-06-14 07:50] VITALS: BP 104/67; PULSE 72; RESP 16
--- NOTE | 2019-06-14 09:27 | P.PN ---
Subjective Progress Note Date: 06/14/19 Patient seen and examined at bedside. No acute events. States she is feeling better. Had a bowel movement. Denies nausea or vomiting. Tolerating diet. Objective - Vital Signs Vital signs: Vital Signs Temp 98.3 F 06/14/19 07:12 Pulse 72 06/14/19 07:12 Resp 16 06/14/19 07:12 BP 104/67 06/14/19 07:12 Pulse Ox 97 06/14/19 07:12 Intake & Output 06/13/19 06/14/19 06/14/19 18:59 06:59 18:59 Intake Total 850 Balance 850 Intake: Oral 850 Other: Voiding Method Toilet # Voids 2 1 - Constitutional General appearance: Present: cooperative, no acute distress - Respiratory Details: No difficulty with respiration - Gastrointestinal Gastrointestinal Comment(s): Soft, mild tenderness to palpation in bilateral lower quadrants, nondistended, no rebound, no guarding - Psychiatric Psychiatric: Present: A&O x's 3 - Labs CBC & Chem 7: 06/14/19 06:20 06/14/19 06:20 Labs: Abnormal Lab Results - Last 24 Hours (Table) 06/13/19 06/13/19 06/14/19 Range/Units 09:21 09:21 06:20 Hgb 10.9 L 11.1 L (11.4-16.0) gm/dL Hct 33.4 L (34.0-46.0) % BUN (7-17) mg/dL Creatinine 0.50 L (0.52-1.04) mg/dL Glucose 138 H (74-99) mg/dL Alkaline Phosphatase 36 L (38-126) U/L Total Protein 5.9 L (6.3-8.2) g/dL Albumin 3.4 L (3.5-5.0) g/dL 06/14/19 Range/Units 06:20 Hgb (11.4-16.0) gm/dL Hct (34.0-46.0) % BUN 5 L (7-17) mg/dL Creatinine (0.52-1.04) mg/dL Glucose (74-99) mg/dL Alkaline Phosphatase (38-126) U/L Total Protein 5.8 L (6.3-8.2) g/dL Albumin 3.4 L (3.5-5.0) g/dL Microbiology - Last 24 Hours (Table) 06/12/19 13:00 Urine Culture - Final Urine,Voided 06/11/19 15:15 Blood Culture - Preliminary Blood No Growth after 48 hours Assessment and Plan (1) Sigmoid diverticulitis Narrative/Plan: 44-year-old female with sigmoid diverticulitis - Ultrasound of the pelvis was reviewed with 2 cm left ovarian cyst noted - Continue antibiotics as an outpatient if the patient is discharged. - Advance diet as tolerated - Patient will require a colonoscopy in 6-8 weeks. She can follow-up with me as an outpatient for scheduling. - We will continue to closely monitor during this admission. The patient is surgically stable for discharge. Current Visit: Yes Status: Acute Code(s): K57.32 - DVTRCLI OF LG INT W/O PERFORATION OR ABSCESS W/O BLEEDING SNOMED Code(s): 385731240
[2019-06-14] MEDS: LEVOFLOXACIN 500MG-D5W PMX 500 MG in DEXTROSE/WATER 1 100ML.BAG IVPB SCH (10:55)
--- NOTE | 2019-06-14 16:08 | P.DS ---
Providers Date of admission: 06/11/19 17:01 Expected date of discharge: 06/14/19 Attending physician: Bia Brantley Consults: 06/13/19 09:12 Consult Physician Routine Consulting Provider: Pierre Tyler Consult Reason/Comments: diverticulitis Do you want consulting provider notified?: Yes Primary care physician: Lázaro [facility] Course: This is a 44-year-old female patient of Dr. Odonnell with no significant past medical history. The patient developed abdominal pain Saturday afternoon and by nighttime the pains were waking her up. In the morning she was feeling worse. Pain was worse when she ambulated. By 1 in the afternoon she felt hot and she checked her temperature which was 101. She does complain of some bloating with a little gas. Her last bowel movement was yesterday morning. She denies any blood in her stools. She denies any seeds or nuts intake lately. She denies any nonsteroidal anti-inflammatories. Patient denies any dysuria. She does complain of bilateral low abdominal/pelvic pain. She does have increased pain with deep breathing. She has had multiple colonoscopies in the past starting at 13 years of age which haven't had no significant findings.. Patient presented to [facility] emergency center and was found to be febrile at 102.9, white count 18.9, electrolytes within normal limits, liver function tests normal, urine hCG was negative. Urinalysis was leukoesterase moderate, squamous cells 6, bacteria moderate. Lactic acid 1.1. CAT scan of the abdomen and pelvis revealed acute sigmoid diverticulitis. 2 cm cystic lesion in the left adnexa which is likely related to ovarian cysts rather than abscess. There is a 1.4 cm low density anterior to left psoas muscle may represent small fluid collection or lymph node. Patient was started on Levaquin, Flagyl as well as Zofran for nausea, she received 1 L of IV fluids and admitted to the [facility]Sur floor. She was started on clear liquid diet. Blood culture has been obtained. 06/12: Pelvic ultrasound ordered to evaluate for abscess. Consult added for general surgery. Patient continues to have diffuse tenderness. No bowel movement. IV fluids will be continued as well as Levaquin and Flagyl as well as clear liquid diet. White count is down to 6.8, creatinine 0.5, electrolytes within normal limits. Liver function tests within normal limits. Patient has been afebrile since admission, blood pressure 92/56, heart rate 76, pulse ox 97% on room air. Pelvic ultrasound revealed fibroid uterus could not exclude adenomyosis. 2 cm left ovarian cyst likely physiologic. 06/13: Patient is feeling much better today. She did have a bowel movement and passing some gas. She is tolerating diet. No nausea or vomiting. Patient has been cleared for discharge by Dr. Garg with plan for follow-up in the office to be scheduled for colonoscopy in 6-8 weeks. Patient will be discharged home today in stable condition. Discharge diagnoses: 1. Acute diverticulitis. 2. Sepsis with leukocytosis and fever secondary to diverticulitis. 3. Hyperglycemia with no history of diabetes. Discharge plan: Return home Impression and plan of care have been directed as dictated by the signing physician. Opal Ni nurse practitioner acting as scribe for signing physician. Patient Condition at Discharge: Good Plan - Discharge Summary New Discharge Prescriptions: New metroNIDAZOLE [Flagyl] 500 mg PO Q8HR #21 tab Levofloxacin [Levaquin] 500 mg PO DAILY #7 tab Discharge Medication List Levofloxacin [Levaquin] 500 mg PO DAILY #7 tab 06/14/19 [Rx] metroNIDAZOLE [Flagyl] 500 mg PO Q8HR #21 tab 06/14/19 [Rx] Follow up Appointment(s)/Referral(s): Lázaro Odonnell DO [Primary Care Provider] - 1 Week (Staff unable to set up a follow up appointment due to the office being closed at time of discharge, please call SaturdayJune 15 to set up this follow up appointment) Brandi Garg DO [Doctor of Osteopathic Medicine] - 2 Weeks (Staff unable to set up a follow up appointment due to the office being closed at time of discharge, please call SaturdayJune 15 to set up this follow up appointment) Patient Instructions/Handouts: Diverticulitis (DC), Low Fiber Diet (DC) Discharge Disposition: HOME SELF-CARE
== END 2019-06-14 14:02 | disposition home or self-care (01) | DRG 872 ==
LOC: EC 13:59 → 4SSUR 17:01
PROVIDERS: ADMIT Family Medicine; ATTEND Family Medicine
DX: A41.9 Sepsis, unspecified organism (principal); K57.32 Diverticulitis of large intestine without perforation or abscess without bleeding; Z82.49 Family history of ischemic heart disease and other diseases of the circulatory system; D25.9 Leiomyoma of uterus, unspecified; N83.202 Unspecified ovarian cyst, left side
CPT/HCPCS: 36415; 74177; 76856; 80053; 81001; 81025; 83605; 85025; 85027; 87040; 87086; 96361; 96374; 96375; 99285

== ENCOUNTER 2021-04-18 06:22 | Inpatient (IN) | payer OTHER ==
[2021-04-18] MEDS ORDERED: SODIUM CHLORIDE 0.9% 1,000 ML IV STA ×2 (06:47→08:56)
[2021-04-18] MEDS ORDERED: ONDANSETRON 4 MG/2 ML VIAL IVP STA (06:47)
[2021-04-18] MEDS ORDERED: HYDROmorphone 0.5 MG/0.5 ML SYRINGE IVP STA (06:47)
[2021-04-18] MEDS ORDERED: ACETAMINOPHEN TAB 325 MG TAB PO STA (06:48)
--- NOTE | 2021-04-18 06:50 | ED ---
General Adult HPI - General Chief complaint: Abdominal Pain Stated complaint: Abd Pain Time Seen by Provider: 04/18/21 06:33 Source: patient, family, RN notes reviewed Mode of arrival: ambulatory Limitations: no limitations - History of Present Illness Initial comments: 46-year-old female with a past medical history of diverticulitis, tubal ligation presents to the emergency room for abdominal pain. Patient reports that she has had abdominal pain for about 12 hours now. States it is across her whole lower abdomen. She has also had a fever on and off throughout the night. States she took 325 mg of Tylenol about an hour ago. Patient also feels nauseous but denies vomiting. Denies diarrhea. Patient states she has a history of diverticulitis and this does feel somewhat similar. She did take one Cipro but it did not help so patient presented to the emergency room. Patient denies any abdominal surgeries aside from tubal ligation.Patient has no other complaints at this time including shortness of breath, chest pain, vomiting, headache, or visual changes. - Related Data Home Medications Medication Instructions Recorded Confirmed No Known Home Medications 04/18/21 04/18/21 Allergies Allergy/AdvReac Type Severity Reaction Status Date / Time No Known Allergies Allergy Verified 04/18/21 09:10 Review of Systems ROS Statement: Those systems with pertinent positive or pertinent negative responses have been documented in the HPI. ROS Other: All systems not noted in ROS Statement are negative. Past Medical History Past Medical History: No Reported History Additional Past Medical History / Comment(s): diverticulitis History of Any Multi-Drug Resistant Organisms: None Reported Past Surgical History: Ablation, Tubal Ligation Past Psychological History: No Psychological Hx Reported Smoking Status: Never smoker Past Alcohol Use History: None Reported Past Drug Use History: None Reported - Past Family History Father Additional Family Medical History / Comment(s): Patient does not know her father. Mother Additional Family Medical History / Comment(s): Mother at age 45 from myocardial infarction. Brother(s) Additional Family Medical History / Comment(s): Patient has 1 brother with no major medical problems. No sisters. General Exam Limitations: no limitations General appearance: alert, in no apparent distress Head exam: Present: atraumatic Eye exam: Present: normal appearance, PERRL, EOMI. Absent: scleral icterus, conjunctival injection, periorbital swelling ENT exam: Present: normal exam, mucous membranes moist Neck exam: Present: normal inspection. Absent: tenderness, meningismus, lymphadenopathy Respiratory exam: Present: normal lung sounds bilaterally. Absent: respiratory distress, wheezes, rales, rhonchi, stridor Cardiovascular Exam: Present: regular rate, normal rhythm, normal heart sounds. Absent: systolic murmur, diastolic murmur, rubs, gallop, clicks GI/Abdominal exam: Present: soft, tenderness (Diffuse abdominal tenderness), normal bowel sounds. Absent: distended, guarding, rebound, rigid Neurological exam: Present: alert Course Vital Signs 04/18/21 04/18/21 04/18/21 06:23 08:45 10:18 Temperature 100.3 F H 99.2 F 99 F Pulse Rate 112 H 90 95 Respiratory 22 18 18 Rate Blood Pressure 102/63 112/60 101/65 O2 Sat by Pulse 97 99 98 Oximetry Medical Decision Making - Medical Decision Making Patient presents with a low-grade fever of 100.3 and reflected tachycardia of 112. She was given Tylenol which did improve her temperature. CBC reveals leukocytosis of 24.5. CMP unremarkable. Urinalysis unremarkable. CT abdomen and pelvis showed acute to subacute diverticulitis mid sigmoid colon. There is associated fat stranding, free fluid, and scattered mild free intraperitoneal air. Additional CT findings on report including some secondary inflammation/enteritis at adjacent distal ileum in bladder. Also cystic change within the uterine myometrium, consider TICKET SPECULATOR follow-up. Source of infection confirmed at 840 AM. Patient started on antibiotics within 3 hours of that time after blood cx obtained. Lactic acid is 1.6. Blood pressure is stable. Dr Palmer notified and accepted patient, requests pt be NPO - Lab Data Result diagrams: 04/18/21 07:01 04/18/21 07:01 Lab Results 04/18/21 04/18/21 04/18/21 Range/Units 07:01 07:01 07:01 WBC 24.5 H (3.8-10.6) k/uL RBC 4.57 (3.80-5.40) m/uL Hgb 13.1 (11.4-16.0) gm/dL Hct 37.8 (34.0-46.0) % MCV 82.8 (80.0-100.0) fL MCH 28.6 (25.0-35.0) pg MCHC 34.6 (31.0-37.0) g/dL RDW 15.2 (11.5-15.5) % Plt Count 421 (150-450) k/uL MPV 7.3 Neutrophils % 91 % Lymphocytes % 4 % Monocytes % 3 % Eosinophils % 1 % Basophils % 0 % Neutrophils # 22.3 H (1.3-7.7) k/uL Lymphocytes # 1.1 (1.0-4.8) k/uL Monocytes # 0.8 (0-1.0) k/uL Eosinophils # 0.2 (0-0.7) k/uL Basophils # 0.1 (0-0.2) k/uL Sodium 136 L (137-145) mmol/L Potassium 4.2 (3.5-5.1) mmol/L Chloride 103 (98-107) mmol/L Carbon Dioxide 22 (22-30) mmol/L Anion Gap 11 mmol/L BUN 12 (7-17) mg/dL Creatinine 0.52 (0.52-1.04) mg/dL Est GFR (CKD-EPI)AfAm >90 (>60 ml/min/1.73 sqM) Est GFR (CKD-EPI)NonAf >90 (>60 ml/min/1.73 sqM) Glucose 142 H (74-99) mg/dL Plasma Lactic Acid [place] (0.7-2.0) mmol/L Calcium 9.1 (8.4-10.2) mg/dL Total Bilirubin 0.9 (0.2-1.3) mg/dL AST 21 (14-36) U/L ALT 11 (4-34) U/L Alkaline Phosphatase 45 (38-126) U/L Total Protein 7.4 (6.3-8.2) g/dL Albumin 4.6 (3.5-5.0) g/dL Amylase 41 (30-110) U/L Lipase 28 (23-300) U/L Urine Color Yellow Urine Appearance Turbid H (Clear) Urine pH 5.5 (5.0-8.0) Ur Specific [place] 1.030 (1.001-1.035) Urine Protein Trace H (Negative) Urine Glucose (UA) Negative (Negative) Urine Ketones Trace H (Negative) Urine Blood Small H (Negative) Urine Nitrite Negative (Negative) Urine Bilirubin Negative (Negative) Urine Urobilinogen <2.0 (<2.0) mg/dL Ur Leukocyte Esterase Moderate H (Negative) Urine RBC 2 (0-5) /hpf Urine WBC 10 H (0-5) /hpf Ur Squamous Epith Cells 3 (0-4) /hpf Amorphous Sediment Rare H (None) /hpf Urine Bacteria Occasional H (None) /hpf Urine Mucus Many H (None) /hpf Urine HCG, Qual (Not Detectd) 04/18/21 04/18/21 Range/Units 07:01 07:01 WBC (3.8-10.6) k/uL RBC (3.80-5.40) m/uL Hgb (11.4-16.0) gm/dL Hct (34.0-46.0) % MCV (80.0-100.0) fL MCH (25.0-35.0) pg MCHC (31.0-37.0) g/dL RDW (11.5-15.5) % Plt Count (150-450) k/uL MPV Neutrophils % % Lymphocytes % % Monocytes % % Eosinophils % % Basophils % % Neutrophils # (1.3-7.7) k/uL Lymphocytes # (1.0-4.8) k/uL Monocytes # (0-1.0) k/uL Eosinophils # (0-0.7) k/uL Basophils # (0-0.2) k/uL Sodium (137-145) mmol/L Potassium (3.5-5.1) mmol/L Chloride (98-107) mmol/L Carbon Dioxide (22-30) mmol/L Anion Gap mmol/L BUN (7-17) mg/dL Creatinine (0.52-1.04) mg/dL Est GFR (CKD-EPI)AfAm (>60 ml/min/1.73 sqM) Est GFR (CKD-EPI)NonAf (>60 ml/min/1.73 sqM) Glucose (74-99) mg/dL Plasma Lactic Acid [place] 1.6 (0.7-2.0) mmol/L Calcium (8.4-10.2) mg/dL Total Bilirubin (0.2-1.3) mg/dL AST (14-36) U/L ALT (4-34) U/L Alkaline Phosphatase (38-126) U/L Total Protein (6.3-8.2) g/dL Albumin (3.5-5.0) g/dL Amylase (30-110) U/L Lipase (23-300) U/L Urine Color Urine Appearance (Clear) Urine pH (5.0-8.0) Ur Specific [place] (1.001-1.035) Urine Protein (Negative) Urine Glucose (UA) (Negative) Urine Ketones (Negative) Urine Blood (Negative) Urine Nitrite (Negative) Urine Bilirubin (Negative) Urine Urobilinogen (<2.0) mg/dL Ur Leukocyte Esterase (Negative) Urine RBC (0-5) /hpf Urine WBC (0-5) /hpf Ur Squamous Epith Cells (0-4) /hpf Amorphous Sediment (None) /hpf Urine Bacteria (None) /hpf Urine Mucus (None) /hpf Urine HCG, Qual Not Detected (Not Detectd) Disposition Clinical Impression: Diverticulitis, Perforated diverticulum of large intestine, Leukocytosis, Abdominal pain Disposition: ADMITTED IP TO THIS HOSP Is patient prescribed a controlled substance at d/c from ED?: No Time of Disposition: 08:55
[2021-04-18 07:21] LABS: ALT 11 U/L (4-34); AST 21 U/L (14-36); African American GFR (CKD) >90 (>60 ml/min/1.73 sqM); Albumin 4.6 g/dL (3.5-5.0); Alkaline Phosphatase 45 U/L (38-126); Amylase 41 U/L (30-110); Anion Gap 11 mmol/L; Blood Urea Nitrogen 12 mg/dL (7-17); Calcium 9.1 mg/dL (8.4-10.2); Carbon Dioxide 22 mmol/L (22-30); Chloride 103 mmol/L (98-107); Glucose 142 mg/dL (74-99); Lipase 28 U/L (23-300); Non-African American GFR(CKD) >90 (>60 ml/min/1.73 sqM); Potassium 4.2 mmol/L (3.5-5.1); Sodium 136 mmol/L (137-145); Total Bilirubin 0.9 mg/dL (0.2-1.3); Total Protein 7.4 g/dL (6.3-8.2)
[2021-04-18 07:22] LABS: Basophils # (A) 0.1 k/uL (0-0.2); Basophils % (A) 0 %; Eosinophils # (A) 0.2 k/uL (0-0.7); Eosinophils % (A) 1 %; HCT 37.8 % (34.0-46.0); HGB 13.1 gm/dL (11.4-16.0); Lymphocytes # (A) 1.1 k/uL (1.0-4.8); Lymphocytes % (A) 4 %; MCH 28.6 pg (25.0-35.0); MCHC 34.6 g/dL (31.0-37.0); MCV 82.8 fL (80.0-100.0); Mean Platelet Volume 7.3; Monocytes # (A) 0.8 k/uL (0-1.0); Monocytes % (A) 3 %; Neutrophils # (A) 22.3 k/uL (1.3-7.7); Neutrophils % (A) 91 %; Platelet Count 421 k/uL (150-450); RBC 4.57 m/uL (3.80-5.40); RDW 15.2 % (11.5-15.5); WBC 24.5 k/uL (3.8-10.6)
[2021-04-18 07:31] LABS: Amorphous Sediment,Urine Rare /hpf; Appearance,Urine Turbid (Clear); Bacteria,Urine Occasional /hpf; Bilirubin,Urine Negative (Negative); Blood,Urine Small (Negative); Color,Urine Yellow; Glucose,Urine (UA) Negative (Negative); Ketones,Urine Trace (Negative); Leukocyte Esterase,Urine Moderate (Negative); Mucus,Urine Many /hpf; Nitrite,Urine Negative (Negative); PH, Urine 5.5 (5.0-8.0); Protein,Urine Trace (Negative); RBC,Urine 2 /hpf (0-5); Squamous Epithelial Cell,Urine 3 /hpf (0-4); Urobilinogen,Urine <2.0 mg/dL (<2.0); WBC,Urine 10 /hpf (0-5)
--- NOTE | 2021-04-18 08:40 | CT ---
EXAMINATION TYPE: CT abdomen pelvis w con DATE OF EXAM: 04/18/2021 COMPARISON: 06/11/2019 HISTORY: 46-year-old female pelvic pain, fever, history of diverticulitis TECHNIQUE: Contiguous axial scanning of the abdomen and pelvis following administration of 100 ml Iso lula 300 IV contrast. Delayed images through the kidneys and coronal/sagittal reconstructions perform ed. CT DLP: 1169.6 mGycm Automated exposure control for dose reduction was used. FINDINGS: Heart normal size without pericardial effusion. Prominent strands of atelectasis in the lower lungs w ithout pleural effusion. A few scattered trace foci of free air are present in the upper abdomen. No focal liver lesion or biliary ductal dilatation. Portal venous system is patent. Gallbladder, adrenal glands, kidneys, spleen, and pancreas within normal limits. Retroaortic left renal vein. No dilated small bowel. Borderline-enlarged 8 mm right lower quadrant mesenteric lymph node. The appendix measures at the upp er limits of normal in caliber at 6 mm. However, inflammatory changes do not appear to be centered at the appendix. There is fluid within the right hemicolon and terminal ileum. A thickened small bowel loop in the anterior right lower quadrant Sigmoid diverticula low cysts with the segment of wall thickening along the mid sigmoid colon and adj acent inflammatory fat stranding. A few small foci of adjacent free air are also noted near. Smaller pocket of free air in the anterior midline pelvis just below the thickened and inflamed segment of co daisy measuring 1.3 x 0.6 cm, axial image 80 and coronal image 31. Circumferential bladder wall thickening. Uterus is anteverted measuring 9.8 cm. Suggestion of some underlying myometrial cystic change raising possibility of adenomyosis, for example, refer to sagittal images 61 and 64 and coronal images 48 an d 52. Pelvic phlebolith. A crenulated peripherally enhancing structure within the right ovary measure s 1.3 cm a dominant follicle functional cyst in the left ovary measures 2.5 cm. Trace cul-de-sac free fluid. Additional small amount of free fluid at the vesicoureteral reflection o n the right, axial image 79. No pelvic lymphadenopathy seen. Bones: Mild degenerative change of the hips. No osseous destructive process.. IMPRESSION: 1. ACUTE TO SUBACUTE DIVERTICULITIS AT THE LEVEL OF THE MID SIGMOID COLON. ASSOCIATED INFLAMMATORY FA T STRANDING, MILD PELVIC FREE FLUID, AND SCATTERED MILD FREE INTRAPERITONEAL AIR. THE LARGEST POCKET OF FREE AIR IS LOCATED JUST ANTERIOR TO THE INFLAMED SEGMENT OF SIGMOID COLON MEASURING 1.3 X 0.6 CM. ADDITIONAL TINY FOCI ARE LOCATED UP TO THE EPIGASTRIUM. 2. SUSPECT SOME SECONDARY INFLAMMATION/ENTERITIS AT THE LEVEL OF THE ADJACENT DISTAL ILEUM. ALSO, LIK CHINTAN SOME SECONDARY MILD INFLAMMATION OF THE ADJACENT BLADDER. 3. SUGGESTION OF SOME CYSTIC CHANGE WITHIN THE UTERINE MYOMETRIUM WHICH CAN BE SEEN WITH ADENOMYOSIS. CONSIDER MOBILE MANAGER FOLLOW-UP.
[2021-04-18] MEDS ORDERED: PIPERACILLIN-TAZOBACTAM 3.375 GM in SODIUM CHLORIDE 0.9% 100 ML IVPB STA (08:50)
[2021-04-18] MEDS ORDERED: ONDANSETRON 4 MG/2 ML VIAL IVP PRN (09:01)
[2021-04-18] MEDS ORDERED: NALOXONE 0.4 MG/ML 1 ML VIAL IV PRN (09:01)
[2021-04-18] MEDS: HYDROmorphone 0.5 MG/0.5 ML SYRINGE IVP PRN ×5 (09:26→22:26)
[2021-04-18] MEDS: SODIUM CHLORIDE 0.9% 1,000 ML IV SCH ×2 (09:32→15:58)
--- NOTE | 2021-04-18 11:55 | P.GSHP ---
History of Present Illness H&P Date: 04/18/21 CHIEF COMPLAINT: Abdominal pain HISTORY OF PRESENT ILLNESS: This is a 46-year-old female with a known prior history of diverticulitis. She has had 4 episodes of diverticulitis in the past and her last episode was in December. He usually her diverticulitis is treated in the outpatient setting. Patient reports that pain started yesterday evening around 5:30. The pain came on suddenly after she was eating Tacos. She reports that the pain is located in both the right and left lower quadrants. She has been having nausea with fever, chills and sweats. She did take Tylenol and a leftover Cipro pill with no improvement in her symptoms. She came into the ER for further evaluation. She had a computed tomography scan of the abdomen and pelvis that shows acute to subacute diverticulitis at the level of the mid sigmoid colon. Associated inflammatory fat stranding, mild pelvic free fluid an d scattered mild free intraperitoneal air. Patient admitted to the hospital for perforated diverticulitis. She was started on IV antibiotics. She did have a temp of 100.3 tachycardic with a heart rate of 112 and elevated white count of 24.5. She denies any cardiac history. Her only prior surgical history includes tubal ligation. PAST MEDICAL HISTORY: See list. PAST SURGICAL HISTORY: See list. MEDICATIONS: See list. ALLERGIES: See list. SOCIAL HISTORY: No illicit drug use. REVIEW OF SYSTEMS: CONSTITUTIONAL: Denies fever or chills. HEENT: Denies blurred vision, vision changes, or eye pain. Denies hemoptysis CARDIOVASCULAR: Denies chest pain or pressure. RESPIRATORY: No shortness of breath. GASTROINTESTINAL: See HPI for pertinent findings HEMATOLOGIC: Denies bleeding disorders. GENITOURINARY: Denies any blood in urine or increased urinary frequency. SKIN: Denies pruitis. Denies rash. PHYSICAL EXAM: VITAL SIGNS: Reviewed GENERAL: Well-developed in no acute distress. HEENT: No sclera icterus. Extraocular movements grossly intact. Moist buccal mucosa. Head is atraumatic, normocephalic. No nasal drainage. ABDOMEN: Soft. Nondistended. Tenderness with palpation of the left and right lower quadrant. Patient appears to be more tender in the right side. NEUROLOGIC: Alert and oriented. Cranial nerves II through XII grossly intact. LABORATORY DATA: WBC 24.5 hemoglobin 13.1 creatinine is 0.5 to lactic 1.6 LFTs normal amylase and lipase normal Blood cultures pending IMAGING: computed tomography scan of the abdomen and pelvis that shows acute to subacute diverticulitis at the level of the mid sigmoid colon. Associated inflammatory fat stranding, mild pelvic free fluid and scattered mild free intraperitoneal air. The largest pocket of free air is located just anterior to the inflamed segment of sigmoid colon measuring 1.3 x 0.6 cm. Additional tiny foci located up into the epigastrium. Suspect some secondary lamination/enteritis at the level of the distal ileum also some secondary mild inflammation of the adjacent bladder. Suggest is of some cystic change within the uterine myometrium which can be seen with adenomyosis. Consider ASSEMBLY LINE INSPECTOR follow-up ASSESSMENT: 1. Acute Perforated diverticulitis of the sigmoid colon 2. Sepsis present on admission due to diverticulitis PLAN: -Continue conservative management -We'll monitor patient closely for possible need of surgical intervention -Keep patient nothing by mouth -Continue IV Zosyn -Continue IV fluid -Continue pain medication as needed -GI prophylaxis Protonix and DVT prophylaxis subcu heparin Physician Fruit Harvest Machine Operator note has been reviewed by physician. Signing provider agrees with the documented findings, assessment, and plan of care. Past Medical History Past Medical History: No Reported History Additional Past Medical History / Comment(s): diverticulitis History of Any Multi-Drug Resistant Organisms: None Reported Past Surgical History: Ablation, Tubal Ligation Past Anesthesia/Blood Transfusion Reactions: Previous Problems w/ Anesthesia Additional Past Anesthesia/Blood Transfusion Reaction / Comment(s): pt. reports she had low BP and hard time waking up Past Psychological History: No Psychological Hx Reported Smoking Status: Never smoker Past Alcohol Use History: None Reported Additional Past Alcohol Use History / Comment(s): . Past Drug Use History: None Reported - Past Family History Father Additional Family Medical History / Comment(s): Patient does not know her father. Mother Additional Family Medical History / Comment(s): Mother at age 45 from myocardial infarction. Brother(s) Additional Family Medical History / Comment(s): Patient has 1 brother with no major medical problems. No sisters. Medications and Allergies Home Medications Medication Instructions Recorded Confirmed Type No Known Home Medications 04/18/21 04/18/21 History Allergies Allergy/AdvReac Type Severity Reaction Status Date / Time No Known Allergies Allergy Verified 04/18/21 09:10 Surgical - Exam Vital Signs Temp Pulse Resp BP Pulse Ox 100.3 F H 112 H 22 102/63 97 04/18/21 06:23 04/18/21 06:23 04/18/21 06:23 04/18/21 06:23 04/18/21 06:23 Results - Labs 04/18/21 07:01 04/18/21 07:01 Abnormal Lab Results - Last 24 Hours (Table) 04/18/21 04/18/21 04/18/21 Range/Units 07:01 07:01 07:01 WBC 24.5 H (3.8-10.6) k/uL Neutrophils # 22.3 H (1.3-7.7) k/uL Sodium 136 L (137-145) mmol/L Glucose 142 H (74-99) mg/dL Urine Appearance Turbid H (Clear) Urine Protein Trace H (Negative) Urine Ketones Trace H (Negative) Urine Blood Small H (Negative) Ur Leukocyte Esterase Moderate H (Negative) Urine WBC 10 H (0-5) /hpf Amorphous Sediment Rare H (None) /hpf Urine Bacteria Occasional H (None) /hpf Urine Mucus Many H (None) /hpf Diabetes panel 04/18/21 Range/Units 07:01 Sodium 136 L (137-145) mmol/L Potassium 4.2 (3.5-5.1) mmol/L Chloride 103 (98-107) mmol/L Carbon Dioxide 22 (22-30) mmol/L BUN 12 (7-17) mg/dL Creatinine 0.52 (0.52-1.04) mg/dL Glucose 142 H (74-99) mg/dL Calcium 9.1 (8.4-10.2) mg/dL AST 21 (14-36) U/L ALT 11 (4-34) U/L Alkaline Phosphatase 45 (38-126) U/L Total Protein 7.4 (6.3-8.2) g/dL Albumin 4.6 (3.5-5.0) g/dL Calcium panel 04/18/21 Range/Units 07:01 Calcium 9.1 (8.4-10.2) mg/dL Albumin 4.6 (3.5-5.0) g/dL Pituitary panel 04/18/21 Range/Units 07:01 Sodium 136 L (137-145) mmol/L Potassium 4.2 (3.5-5.1) mmol/L Chloride 103 (98-107) mmol/L Carbon Dioxide 22 (22-30) mmol/L BUN 12 (7-17) mg/dL Creatinine 0.52 (0.52-1.04) mg/dL Glucose 142 H (74-99) mg/dL Calcium 9.1 (8.4-10.2) mg/dL Adrenal panel 04/18/21 Range/Units 07:01 Sodium 136 L (137-145) mmol/L Potassium 4.2 (3.5-5.1) mmol/L Chloride 103 (98-107) mmol/L Carbon Dioxide 22 (22-30) mmol/L BUN 12 (7-17) mg/dL Creatinine 0.52 (0.52-1.04) mg/dL Glucose 142 H (74-99) mg/dL Calcium 9.1 (8.4-10.2) mg/dL Total Bilirubin 0.9 (0.2-1.3) mg/dL AST 21 (14-36) U/L ALT 11 (4-34) U/L Alkaline Phosphatase 45 (38-126) U/L Total Protein 7.4 (6.3-8.2) g/dL Albumin 4.6 (3.5-5.0) g/dL
--- NOTE | 2021-04-18 12:13 | P.CONS ---
History of Present Illness - Reason for Consult Consult date: 04/18/21 Medical management - History of Present Illness HISTORY OF PRESENT ILLNESS This is a 46-year-old female patient of Dr. Odonnell with past medical history of hospitalization and 2019 for acute diverticulitis at which time she was treated conservatively and was seen by Dr. Garg. Patient states she had sudden onset of abdominal pain in the pelvis area bilaterally that started about a half hour after she ate supper, approximate 5:30 PM yesterday. She states she also had a bowel movement which was normal. No blood or tarry stools. No diarrhea. She has had nausea with fever and chills. Patient has not had any previous abdominal surgeries except for tubal ligation and uterine a blation. Patient came into [facility] emergency center for evaluation. She was found to be febrile at 100.3, heart rate 112, blood pressure 102/63, pulse ox 97% on room air. WBC 24.5. Hemoglobin 13.1, platelet count 421. Sodium 136, potassium 4.2, chloride 103, CO2 22, BUN 12 and creatinine 0.52. Blood sugar 142. Patient does not have history of diabetes. Urinalysis was tu rbid, blood small, leukoesterase moderate, WBCs 10, bacteria occasional. Lactic acid was 1.6. Urine hCG not detected. CAT scan of the abdomen and pelvis revealed acute to subacute diverticulitis the level of the mid sigmoid: With fat stranding, mild pelvic free fluid and scattered mild free intraperitoneal air. Large pocket of air is located just anterior to the inflamed segment of the sigmoid colon measuring and 0.3 x 0.6 cm. Suspect secondary inflammatory, enteritis at the level of the adjacent distal ileum. Likely some secondary mild inflammation of the adjacent bladder. Cystic change within the uterine which can be seen in adenomyosis. Patient was admitted to the pediatric floor and started on IV antibiotics, nothing by mouth, and Dilaudid for pain, Zofran for nausea. REVIEW OF SYSTEMS Constitutional: No fever, no chills, no night sweats. No weight change. No weakness, fatigue or lethargy. No daytime sleepiness. EENT: No headache. No blurred vision or double vision, no loss of vision. No loss of Hearing, no ringing in the ears, no dizziness. No nasal drainage or congestion. No epistaxis. No sore throat. Lungs: No shortness of breath, cough, no sputum production. No wheezing. Cardiovascular: No chest pain, no lower extremity edema. No palpitations. No paroxysmal nocturnal dyspnea. No orthopnea. No lightheadedness or dizziness. No syncopal episodes. Abdominal: Reports abdominal pain. No nausea, vomiting. No diarrhea. No co nstipation. No bloody or tarry stools.. No loss of appetite. Genitourinary: No dysuria, increased frequency, urgency. No urinary retention. Musculoskeletal: No myalgias. No muscle weakness, no gait dysfunction, no frequent falls. No back pain. No neck pain. Integumentary: No wounds, no lesions. No rash or pruritus. No unusual bruising. No change in hair or nails. Neurologic: No aphasia. No facial droop. No change in mentation. No head injury. No headache. No paralysis. No paresthesia. Psychiatric: No depression. No anxiety. No mood swings. Endocrine: No abnormal blood sugars. No weight change. No excessive sweating or thirst. No cold intolerance. SOCIAL HISTORY Patient is a lifelong nonsmoker, no alcohol use, no marijuana use or illicit drug use. She lives at home with her and 2 sons. FAMILY HISTORY Mother at age 45 from myocardial infarction. Patient does not know her father. Patient has one half-brother with no major medical problems. She has 2 sons with no major medical problems.. PHYSICAL EXAMINATION Gen: This is a 46-year-old female. She is resting in bed and appears to be comfortable and in no acute distress. HEENT: Head is atraumatic, normocephalic. Pupils equal, round. Sclerae is anicteric. NECK: Supple. No JVD. No lymphadenopathy. No thyromegaly. LUNGS: Clear to auscultation. No wheezes or rhonchi. No intercostal retractions. HEART: Regular rate and rhythm. No murmur. ABDOMEN: Soft. Bowel sounds are hypoactive. No masses. Bilateral lower quadrant tenderness. EXTREMITIES: No pedal edema. No calf tenderness. Dorsalis pedis +2 bilaterally. NEUROLOGICAL: Patient is awake, alert and oriented x3. Cranial nerves 2 through 12 are grossly intact. ASSESSMENT AND PLAN 1. Sepsis secondary to acute perforated diverticulitis of the sigmoid colon. Plan is for conservative management. Continue IV fluids at 125 mL per hour, nothing by mouth status, Dilaudid as needed for pain and Zofran for nausea, Zosyn 3.375 g IV piggyback every 8 hours. 2. Previous history of diverticulitis treated conservatively in 2019. 3. Hyperglycemia most likely secondary to sepsis with without previous diagnoses of diabetes. Obtain hemoglobin A1c. 4. GI prophylaxis. Protonix 40 mg IV daily. 5. DVT prophylaxis. Heparin 5000 units subcu every 12 hours. Patient will be admitted to the hospital for a minimum of 2 night stay. DISCHARGE PLAN Home. Impression and plan of care have been directed as dictated by the signing physician. Opal Ni nurse practitioner acting as scribe for signing ramirez corriganian. Past Medical History Past Medical History: No Reported History Additional Past Medical History / Comment(s): diverticulitis History of Any Multi-Drug Resistant Organisms: None Reported Past Surgical History: Ablation, Tubal Ligation Past Anesthesia/Blood Transfusion Reactions: Previous Problems w/ Anesthesia Additional Past Anesthesia/Blood Transfusion Reaction / Comm: pt. reports she had low BP and hard time waking up Past Psychological History: No Psychological Hx Reported Smoking Status: Never smoker Past Alcohol Use History: None Reported Additional Past Alcohol Use History / Comment(s): . Past Drug Use History: None Reported - Past Family History Father Additional Family Medical History / Comment(s): Patient does not know her fathe r. Mother Additional Family Medical History / Comment(s): Mother at age 45 from myocardial infarction. Brother(s) Additional Family Medical History / Comment(s): Patient has 1 brother with no major medical problems. No sisters. Medications and Allergies Home Medications Medication Instructions Recorded Confirmed Type No Known Home Medications 04/18/21 04/18/21 History Allergies Allergy/AdvReac Type Severity Reaction Status Date / Time No Known Allergies Allergy Verified 04/18/21 09:10 Physical Exam Vitals: Vital Signs Temp Pulse Pulse Resp BP BP Pulse Ox 04/18/21 10:30 98.6 F 94 16 104/61 100 04/18/21 10:18 99 F 95 18 101/65 98 04/18/21 08:45 99.2 F 90 18 112/60 99 04/18/21 06:23 100.3 F H 112 H 22 102/63 97 Intake and Output 06/05/3104/18/21 04/18/21 22:59 06:59 14:59 Other: Weight 74.843 kg 74.843 kg Results CBC & Chem 7: 04/18/21 07:01 04/18/21 07:01 Labs: Abnormal Lab Results - Last 24 Hours (Table) 04/18/21 04/18/21 04/18/21 Range/Units 07:01 07:01 07:01 WBC 24.5 H (3.8-10.6) k/uL Neutrophils # 22.3 H (1.3-7.7) k/uL Sodium 136 L (137-145) mmol/L Glucose 142 H (74-99) mg/dL Urine Appearance Turbid H (Clear) Urine Protein Trace H (Negative) Urine Ketones Trace H (Negative) Urine Blood Small H (Negative) Ur Leukocyte Esterase Moderate H (Negative) Urine WBC 10 H (0-5) /hpf Amorphous Sediment Rare H (None) /hpf Urine Bacteria Occasional H (None) /hpf Urine Mucus Many H (None) /hpf
[2021-04-18] MEDS: PANTOPRAZOLE 40 MG/10 ML VIAL IVP SCH (12:20)
[2021-04-18] MEDS ORDERED: SODIUM CHLORIDE 0.9% 1,000 ML IV ONE (14:42)
[2021-04-18] MEDS: PIPERACILLIN-TAZOBACTAM 3.375 GM in SODIUM CHLORIDE 0.9% 100 ML IVPB SCH ×2 (15:57→22:27)
[2021-04-18] MEDS: HEPARIN SODIUM,PORCINE/PF 5,000 UNIT/0.5 ML SYRINGE SQ SCH (20:05)
[2021-04-18 22:30] LABS: Hemoglobin A1C 5.7 % (4.0-6.0)
[2021-04-18] MEDS: ACETAMINOPHEN TAB 325 MG TAB PO PRN (22:32)
[2021-04-19] MEDS: HYDROmorphone 0.5 MG/0.5 ML SYRINGE IVP PRN ×7 (01:02→21:18)
[2021-04-19] MEDS: SODIUM CHLORIDE 0.9% 1,000 ML IV SCH ×3 (02:04→20:27)
[2021-04-19 07:05] LABS: Basophils % (A) 0 %; Eosinophils % (A) 0 %; HGB 10.3 gm/dL (11.4-16.0); Lymphocytes % (A) 8 %; MCH 28.8 pg (25.0-35.0); MCHC 33.3 g/dL (31.0-37.0); MCV 86.2 fL (80.0-100.0); Monocytes # (A) 0.6 k/uL (0-1.0); Monocytes % (A) 5 %; Neutrophils # (A) 10.5 k/uL (1.3-7.7); Neutrophils % (A) 86 %; Platelet Count 297 k/uL (150-450); RBC 3.59 m/uL (3.80-5.40); RDW 15.3 % (11.5-15.5); WBC 12.2 k/uL (3.8-10.6)
[2021-04-19 07:14] LABS: African American GFR (CKD) >90 (>60 ml/min/1.73 sqM); Anion Gap 5 mmol/L; Blood Urea Nitrogen 6 mg/dL (7-17); Calcium 7.6 mg/dL (8.4-10.2); Carbon Dioxide 25 mmol/L (22-30); Chloride 108 mmol/L (98-107); Glucose 90 mg/dL (74-99); Non-African American GFR(CKD) >90 (>60 ml/min/1.73 sqM); Potassium 3.7 mmol/L (3.5-5.1); Sodium 138 mmol/L (137-145)
[2021-04-19] MEDS: HEPARIN SODIUM,PORCINE/PF 5,000 UNIT/0.5 ML SYRINGE SQ SCH ×2 (08:12→21:19)
[2021-04-19] MEDS: PIPERACILLIN-TAZOBACTAM 3.375 GM in SODIUM CHLORIDE 0.9% 100 ML IVPB SCH ×2 (08:13→15:20)
[2021-04-19] MEDS: PANTOPRAZOLE 40 MG/10 ML VIAL IVP SCH (08:13)
[2021-04-19] MEDS: ACETAMINOPHEN TAB 325 MG TAB PO PRN ×2 (08:39→20:10)
--- NOTE | 2021-04-19 14:33 | P.PN ---
Subjective Progress Note Date: 04/19/21 HISTORY OF PRESENT ILLNESS This is a 46-year-old female patient of Dr. Odonnell with past medical history of hospitalization and 2019 for acute diverticulitis at which t odalis she was treated conservatively and was seen by Dr. Garg. Patient states she had sudden onset of abdominal pain in the pelvis area bilaterally that started about a half hour after she ate supper, approximate 5:30 PM yesterday. She states she also had a bowel movement which was normal. No blood or tarry stools. No diarrhea. She has had nausea with fever and chills. Patient has not had any previous abdominal surgeries except for tubal ligation and uterine ablation. Patient came into [facility] emergency center for evaluation. She was found to be febrile at 100.3, heart rate 112, blood pressure 102/63, pulse ox 97% on room air. WBC 24.5. Hemoglobin 13.1, platelet count 421. Sodium 136, potassium 4.2, chloride 103, CO2 22, BUN 12 and creatinine 0.52. Blood sugar 142. Patient does not have history of diabetes. Urinalysis was turbid, blood small, leukoesterase moderate, WBCs 10, bacteria occasional. Lactic acid was 1.6. Urine hCG not detected. CAT scan of the abdomen and pelvis revealed acute to subacute diverticulitis the level of the mid sigmoid: With fat stranding, mild pelvic free fluid and scattered mild free intraperitoneal air. Large pocket of air is located just anterior to the inflamed segment of the sigmoid colon measuring and 0.3 x 0.6 cm. Suspect secondary inflammatory, enteritis at the level of the adjacent distal ileum. Likely some secondary mild inflammation of the adjacent bladder. Cystic change within the uterine which can be seen in adenomyosis. Patient was admitted to the pediatric floor and started on IV antibiotics, nothing by mouth, and Dilaudid for pain, Zofran for nausea. 04/19: Temperature max 102.7, heart rate 105, blood pressure 97/54, pulse ox 95% on room air. Repeat blood work reveals WBC 12.2, hemoglobin 10.3, platelet count 297. Creatinine 0.57. Calcium 7.6. Blood culture no growth at 24 hours. Patient remains on IV Zosyn, IV fluids, Dilaudid and Zofran. Patient is nothing by mouth status. REVIEW OF SYSTEMS Constitutional: No fever, no chills, no night sweats. No weight change. No weakness, fatigue or lethargy. No daytime sleepiness. EENT: No headache. No blurred vision or double vision, no loss of vision. No loss of Hearing, no ringing in the ears, no dizziness. No nasal drainage or congestion. No epistaxis. No sore throat. Lungs: No shortness of breath, cough, no sputum production. No wheezing. Cardiovascular: No chest pain, no lower extremity edema. No palpitations. No paroxysmal nocturnal dyspnea. No orthopnea. No lightheadedness or dizziness. No syncopal episodes. Abdominal: Reports abdominal pain. No nausea, vomiting. No diarrhea. No constipation. No bloody or tarry stools.. No loss of appetite. Genitourinary: No dysuria, increased frequency, urgency. No urinary retention. Musculoskeletal: No myalgias. No muscle weakness, no gait dysfunction, no frequent falls. No back pain. No neck pain. Integumentary: No wounds, no lesions. No rash or pruritus. No unusual bruising. No change in hair or nails. Neurologic: No aphasia. No facial droop. No change in mentation. No head injury. No headache. No paralysis. No paresthesia. Psychiatric: No depression. No anxiety. No mood swings. Endocrine: No abnormal blood sugars. No weight change. No excessive sweating or thirst. No cold intolerance. PHYSICAL EXAMINATION Gen: This is a 46-year-old female. She is resting in bed and appears to be comfortable and in no acute distress. HEENT: Head is atraumatic, normocephalic. Pupils equal, round. Sclerae is anicteric. NECK: Supple. No JVD. No lymphadenopathy. No thyromegaly. LUNGS: Clear to auscultation. No wheezes or rhonchi. No intercostal retractions. HEART: Regular rate and rhythm. No murmur. ABDOMEN: Soft. Bowel sounds are hypoactive. No masses. Bilateral lower quadrant tenderness. EXTREMITIES: No pedal edema. No calf tenderness. Dorsalis pedis +2 bilaterally. NEUROLOGICAL: Patient is awake, alert and oriented x3. Cranial nerves 2 through 12 are grossly intact. ASSESSMENT AND PLAN 1. Sepsis secondary to acute perforated diverticulitis of the sigmoid colon. Plan is for conservative management. Continue IV fluids at 125 mL per hour, n othing by mouth status, Dilaudid as needed for pain and Zofran for nausea, Zosyn 3.375 g IV piggyback every 8 hours. 2. Previous history of diverticulitis treated conservatively in 2019. 3. Hyperglycemia most likely secondary to sepsis with without previous diagnoses of diabetes. Obtain hemoglobin A1c. 4. GI prophylaxis. Protonix 40 mg IV daily. 5. DVT prophylaxis. Heparin 5000 units subcu every 12 hours. DISCHARGE PLAN Home. Impression and plan of care have been directed as dictated by the signing physician. Opal Ni nurse practitioner acting as scribe for signing physician. Objective - Vital Signs Vital signs: Vital Signs Temp 99.9 F H 04/19/21 09:51 Pulse 105 H 04/19/21 08:35 Resp 16 04/19/21 08:35 BP 97/54 04/19/21 08:35 Pulse Ox 95 04/19/21 08:35 Intake & Output 04/18/21 04/19/21 04/19/21 18:59 06:59 18:59 Intake Total 0 1350 Balance 0 1350 Weight 74.843 kg Intake: Intake, IV Titration 1350 Amount Piperacillin-Tazobactam 3 100 .375 gm In Sodium Chloride 0.9% 100 ml @ 25 mls/hr IVPB Q8HR [facility] Rx# :[id number] Sodium Chloride 0.9% 1, 1250 000 ml @ 125 mls/hr IV . Q8H [facility] Rx#:[id number] Oral 0 Other: Voiding Method Toilet # Voids 1 3 - Labs CBC & Chem 7: 04/19/21 06:07 04/19/21 06:07 Labs: Abnormal Lab Results - Last 24 Hours (Table) 04/19/21 04/19/21 Range/Units 06:07 06:07 WBC 12.2 H (3.8-10.6) k/uL RBC 3.59 L (3.80-5.40) m/uL Hgb 10.3 L (11.4-16.0) gm/dL Hct 31.0 L (34.0-46.0) % Neutrophils # 10.5 H (1.3-7.7) k/uL Chloride 108 H (98-107) mmol/L BUN 6 L (7-17) mg/dL Calcium 7.6 L (8.4-10.2) mg/dL
--- NOTE | 2021-04-19 15:35 | P.PN ---
Subjective Progress Note Date: 04/19/21 CHIEF COMPLAINT: Abdominal pain HISTORY OF PRESENT ILLNESS: Patient's hospital is for an acute perforated diverticulitis of the sigmoid colon with sepsis. She has still been febrile. With a T-max of 102.7. She has had episodes of tachycardia heart rate of 105. Repeat vitals this afternoon shows a temp of 99 pulse of 90 and blood pressure of 93/57. Patient is reporting that her abdominal pain is the same as yesterday. She rates it about 8 out of 10. She does complain of some bloating in the abdomen. White count has decreased from 24.5-12.2 hemoglobin 10.3 she remains nothing by mouth. Patient seen and examined with Dr. blankenship PHYSICAL EXAM: VITAL SIGNS: Reviewed. GENERAL: Well-developed in no acute distress. HEENT: No sclera icterus. Extraocular movements grossly intact. Moist buccal mucosa. Head is atraumatic, normocephalic. ABDOMEN: Soft. Mild distended. Diffuse tenderness with more tenderness in the left lower quadrant NEUROLOGIC: Alert and oriented. Cranial nerves II through XII grossly intact. ASSESSMENT: 1. Acute Perforated diverticulitis of the sigmoid colon 2. Sepsis present on admission due to diverticulitis 3. Prior history of diverticulitis PLAN: -Continue conservative management -Keep patient nothing by mouth -Continue IV Zosyn -Continue IV fluid -Continue pain medication as needed -GI prophylaxis Protonix and DVT prophylaxis subcu heparin Physician Collar Separator note has been reviewed by physician. Signing provider agrees with the documented findings, assessment, and plan of care. Objective - Vital Signs Vital signs: Vital Signs Temp 99.0 F 04/19/21 14:05 Pulse 90 04/19/21 14:05 Resp 16 04/19/21 14:05 BP 93/57 04/19/21 14:05 Pulse Ox 94 L 04/19/21 14:05 Intake & Output 04/18/21 04/19/21 04/19/21 18:59 06:59 18:59 Intake Total 0 1350 Balance 0 1350 Weight 74.843 kg Intake: Intake, IV Titration 1350 Amount Piperacillin-Tazobactam 3 100 .375 gm In Sodium Chloride 0.9% 100 ml @ 25 mls/hr IVPB Q8HR [facility] Rx# :[id number] Sodium Chloride 0.9% 1, 1250 000 ml @ 125 mls/hr IV . Q8H [facility] Rx#:[id number] Oral 0 Other: Voiding Method Toilet # Voids 1 3 - Labs CBC & Chem 7: 04/19/21 06:07 04/19/21 06:07 Labs: Abnormal Lab Results - Last 24 Hours (Table) 04/19/21 04/19/21 Range/Units 06:07 06:07 WBC 12.2 H (3.8-10.6) k/uL RBC 3.59 L (3.80-5.40) m/uL Hgb 10.3 L (11.4-16.0) gm/dL Hct 31.0 L (34.0-46.0) % Neutrophils # 10.5 H (1.3-7.7) k/uL Chloride 108 H (98-107) mmol/L BUN 6 L (7-17) mg/dL Calcium 7.6 L (8.4-10.2) mg/dL Microbiology - Last 24 Hours (Table) 04/18/21 09:18 Blood Culture - Preliminary Blood No Growth after 24 hours 04/18/21 09:18 Blood Culture - Preliminary Blood No Growth after 24 hours
[2021-04-20] MEDS: HYDROmorphone 0.5 MG/0.5 ML SYRINGE IVP PRN ×7 (00:13→23:25)
[2021-04-20] MEDS: SODIUM CHLORIDE 0.9% 1,000 ML IV SCH (00:14)
[2021-04-20] MEDS: PIPERACILLIN-TAZOBACTAM 3.375 GM in SODIUM CHLORIDE 0.9% 100 ML IVPB SCH ×4 (00:14→23:25)
[2021-04-20] MEDS: PANTOPRAZOLE 40 MG/10 ML VIAL IVP SCH (07:59)
[2021-04-20] MEDS: HEPARIN SODIUM,PORCINE/PF 5,000 UNIT/0.5 ML SYRINGE SQ SCH ×2 (07:59→20:01)
[2021-04-20] MEDS: ACETAMINOPHEN TAB 325 MG TAB PO PRN (08:05)
[2021-04-20 09:45] LABS: Basophils % (A) 0 %; Eosinophils # (A) 0.1 k/uL (0-0.7); Eosinophils % (A) 1 %; HCT 31.5 % (34.0-46.0); HGB 10.2 gm/dL (11.4-16.0); Lymphocytes # (A) 0.8 k/uL (1.0-4.8); Lymphocytes % (A) 7 %; MCH 28.5 pg (25.0-35.0); MCHC 32.5 g/dL (31.0-37.0); MCV 87.6 fL (80.0-100.0); Mean Platelet Volume 7.5; Monocytes # (A) 0.4 k/uL (0-1.0); Monocytes % (A) 4 %; Neutrophils # (A) 9.6 k/uL (1.3-7.7); Neutrophils % (A) 88 %; Platelet Count 334 k/uL (150-450); RDW 15.3 % (11.5-15.5); WBC 10.9 k/uL (3.8-10.6)
[2021-04-20] MEDS: DEXTROSE 5%-0.45% NACL 1,000 ML IV SCH ×2 (10:06→21:00)
--- NOTE | 2021-04-20 12:03 | P.PN ---
Subjective Progress Note Date: 04/20/21 CHIEF COMPLAINT: Abdominal pain HISTORY OF PRESENT ILLNESS: Patient is hospitalized for an acute perforated diverticulitis of the sigmoid colon with sepsis. Patient is still been having fevers. T-max 102.3. She did have a temp this morning of 100.8. She also has mild tachycardia which has not improved. And blood pressure is 1 60. Patient reports minimal improvement of her abdominal pain. She rates it about a 6 out of 10. Yesterday she is rating her pain about 8 out of 10. She denies any naus ea or vomiting. She is having flatus. But denies any bowel movement. She is currently nothing by mouth. WBC continues to trend down to 10.9 Patient seen and examined with Dr. blankenship PHYSICAL EXAM: VITAL SIGNS: Reviewed. GENERAL: Well-developed in no acute distress. HEENT: No sclera icterus. Extraocular movements grossly intact. Moist buccal mucosa. Head is atraumatic, normocephalic. ABDOMEN: Soft. Mild distended. Diffuse tenderness with more tenderness in the left lower quadrant NEUROLOGIC: Alert and oriented. Cranial nerves II through XII grossly intact. ASSESSMENT: 1. Acute Perforated diverticulitis of the sigmoid colon 2. Sepsis present on admission due to diverticulitis 3. Prior history of diverticulitis PLAN: -Continue conservative management -Start patient on clear liquid diet -Would recommend to repeat computed tomography scan of the abdomen and pelvis on ly if patient's symptoms worsen. -Continue IV Zosyn -Continue IV fluid -Continue pain medication as needed -GI prophylaxis Protonix and DVT prophylaxis subcu heparin Physician Geriatric Case Manager note has been reviewed by physician. Signing provider agrees with the documented findings, assessment, and plan of care. Objective - Vital Signs Vital signs: Vital Signs Temp 98.5 F 04/20/21 10:12 Pulse 95 04/20/21 08:26 Resp 20 04/20/21 08:26 BP 103/60 04/20/21 08:26 Pulse Ox 94 L 04/20/21 08:26 Intake & Output 04/19/21 04/20/21 04/20/21 18:59 06:59 18:59 Intake Total 1375 Balance 1375 Intake: Intake, IV Titration 1375 Amount Sodium Chloride 0.9% 1, 1375 000 ml @ 125 mls/hr IV . Q8H [facility] Rx#:[id number] Other: # Voids 2 - Labs CBC & Chem 7: 04/20/21 07:35 04/19/21 06:07 Labs: Abnormal Lab Results - Last 24 Hours (Table) 04/20/21 Range/Units 07:35 WBC 10.9 H (3.8-10.6) k/uL RBC 3.60 L (3.80-5.40) m/uL Hgb 10.2 L (11.4-16.0) gm/dL Hct 31.5 L (34.0-46.0) % Neutrophils # 9.6 H (1.3-7.7) k/uL Lymphocytes # 0.8 L (1.0-4.8) k/uL Microbiology - Last 24 Hours (Table) 04/18/21 09:18 Blood Culture - Preliminary Blood No Growth after 48 hours 04/18/21 09:18 Blood Culture - Preliminary Blood No Growth after 48 hours
--- NOTE | 2021-04-20 14:16 | P.PN ---
Subjective Progress Note Date: 04/20/21 HISTORY OF PRESENT ILLNESS This is a 46-year-old female patient of Dr. Odonnell with past medical history of hospitalization and 2019 for acute diverticulitis at which t odalis she was treated conservatively and was seen by Dr. Garg. Patient states she had sudden onset of abdominal pain in the pelvis area bilaterally that started about a half hour after she ate supper, approximate 5:30 PM yesterday. She states she also had a bowel movement which was normal. No blood or tarry stools. No diarrhea. She has had nausea with fever and chills. Patient has not had any previous abdominal surgeries except for tubal ligation and uterine ablation. Patient came into [facility] emergency center for evaluation. She was found to be febrile at 100.3, heart rate 112, blood pressure 102/63, pulse ox 97% on room air. WBC 24.5. Hemoglobin 13.1, platelet count 421. Sodium 136, potassium 4.2, chloride 103, CO2 22, BUN 12 and creatinine 0.52. Blood sugar 142. Patient does not have history of diabetes. Urinalysis was turbid, blood small, leukoesterase moderate, WBCs 10, bacteria occasional. Lactic acid was 1.6. Urine hCG not detected. CAT scan of the abdomen and pelvis revealed acute to subacute diverticulitis the level of the mid sigmoid: With fat stranding, mild pelvic free fluid and scattered mild free intraperitoneal air. Large pocket of air is located just anterior to the inflamed segment of the sigmoid colon measuring and 0.3 x 0.6 cm. Suspect secondary inflammatory, enteritis at the level of the adjacent distal ileum. Likely some secondary mild inflammation of the adjacent bladder. Cystic change within the uterine which can be seen in adenomyosis. Patient was admitted to the pediatric floor and started on IV antibiotics, nothing by mouth, and Dilaudid for pain, Zofran for nausea. 04/19: Temperature max 102.7, heart rate 105, blood pressure 97/54, pulse ox 95% on room air. Repeat blood work reveals WBC 12.2, hemoglobin 10.3, platelet count 297. Creatinine 0.57. Calcium 7.6. Blood culture no growth at 24 hours. Patient remains on IV Zosyn, IV fluids, Dilaudid and Zofran. Patient is nothing by mouth status. 04/20: Patient states that she has passed gas but no bowel movement. She continues to have abdominal bloating but abdomen is soft. Temperature max 102.3, heart rate 95, blood pressure 103/60, pulse ox 94% on room air. WBC 10.9, Hemoccult and 10.2, platelet count 334. REVIEW OF SYSTEMS Constitutional: No fever, no chills, no night sweats. No weight change. No weakness, fatigue or lethargy. No daytime sleepiness. EENT: No headache. No blurred vision or double vision, no loss of vision. No loss of Hearing, no ringing in the ears, no dizziness. No nasal drainage or c ongestion. No epistaxis. No sore throat. Lungs: No shortness of breath, cough, no sputum production. No wheezing. Cardiovascular: No chest pain, no lower extremity edema. No palpitations. No paroxysmal nocturnal dyspnea. No orthopnea. No lightheadedness or dizziness. No syncopal episodes. Abdominal: Reports abdominal pain. No nausea, vomiting. No diarrhea. No constipation. No bloody or tarry stools.. No loss of appetite. Genitourinary: No dysuria, increased frequency, urgency. No urinary retention. Musculoskeletal: No myalgias. No muscle weakness, no gait dysfunction, no frequent falls. No back pain. No neck pain. Integumentary: No wounds, no lesions. No rash or pruritus. No unusual bruising. No change in hair or nails. Neurologic: No aphasia. No facial droop. No change in mentation. No head injury. No headache. No paralysis. No paresthesia. Psychiatric: No depression. No anxiety. No mood swings. Endocrine: No abnormal blood sugars. No weight change. No excessive sweating or thirst. No cold intolerance. PHYSICAL EXAMINATION Gen: This is a 46-year-old female. She is resting in bed and appears to be comfortable and in no acute distress. HEENT: Head is atraumatic, normocephalic. Pupils equal, round. Sclerae is anicteric. NECK: Supple. No JVD. No lymphadenopathy. No thyromegaly. LUNGS: Clear to auscultation. No wheezes or rhonchi. No intercostal retractions. HEART: Regular rate and rhythm. No murmur. ABDOMEN: Soft, mild distention. Bowel sounds are hypoactive. No masses. Mild Bilateral lower quadrant tenderness. EXTREMITIES: No pedal edema. No calf tenderness. Dorsalis pedis +2 bilaterally. NEUROLOGICAL: Patient is awake, alert and oriented x3. Cranial nerves 2 through 12 are grossly intact. ASSESSMENT AND PLAN 1. Sepsis secondary to acute perforated diverticulitis of the sigmoid colon. Plan is for conservative management. Continue IV fluids at 100 mL per hour, clear liquid diet, Dilaudid as needed for pain and Zofran for nausea, Zosyn 3.375 g IV piggyback every 8 hours. 2. Previous history of diverticulitis treated conservatively in 2019. 3. Hyperglycemia most likely secondary to sepsis with without previous diagnoses of diabetes. Obtain hemoglobin A1c. 4. GI prophylaxis. Protonix 40 mg IV daily. 5. DVT prophylaxis. Heparin 5000 units subcu every 12 hours. DISCHARGE PLAN Home. Impression and plan of care have been directed as dictated by the signing physician. Opal Ni nurse practitioner acting as scribe for signing physician. Objective - Vital Signs Vital signs: Vital Signs Temp 100.8 F H 04/20/21 08:26 Pulse 95 04/20/21 08:26 Resp 20 04/20/21 08:26 BP 103/60 04/20/21 08:26 Pulse Ox 94 L 04/20/21 08:26 Intake & Output 04/19/21 04/20/21 04/20/21 18:59 06:59 18:59 Intake Total 1375 Balance 1375 Intake: Intake, IV Titration 1375 Amount Sodium Chloride 0.9% 1, 1375 000 ml @ 125 mls/hr IV . Q8H [facility] Rx#:[id number] Other: # Voids 2 - Labs CBC & Chem 7: 04/20/21 07:35 04/19/21 06:07 Labs: Abnormal Lab Results - Last 24 Hours (Table) 04/20/21 Range/Units 07:35 WBC 10.9 H (3.8-10.6) k/uL RBC 3.60 L (3.80-5.40) m/uL Hgb 10.2 L (11.4-16.0) gm/dL Hct 31.5 L (34.0-46.0) % Neutrophils # 9.6 H (1.3-7.7) k/uL Lymphocytes # 0.8 L (1.0-4.8) k/uL Microbiology - Last 24 Hours (Table) 04/18/21 09:18 Blood Culture - Preliminary Blood No Growth after 24 hours 04/18/21 09:18 Blood Culture - Preliminary Blood No Growth after 24 hours
[2021-04-21] MEDS: HYDROmorphone 0.5 MG/0.5 ML SYRINGE IVP PRN ×3 (03:06→15:46)
[2021-04-21] MEDS: SODIUM CHLORIDE 0.9% 1,000 ML IV SCH (03:47)
[2021-04-21] MEDS: ACETAMINOPHEN TAB 325 MG TAB PO PRN ×3 (04:59→18:33)
[2021-04-21] MEDS: DEXTROSE 5%-0.45% NACL 1,000 ML IV SCH ×3 (05:00→23:03)
[2021-04-21 06:29] LABS: HCT 28.3 % (34.0-46.0); HGB 9.7 gm/dL (11.4-16.0); MCH 28.8 pg (25.0-35.0); MCHC 34.2 g/dL (31.0-37.0); MCV 84.3 fL (80.0-100.0); Mean Platelet Volume 6.6; Platelet Count 341 k/uL (150-450); RBC 3.35 m/uL (3.80-5.40); RDW 14.9 % (11.5-15.5); WBC 8.9 k/uL (3.8-10.6)
[2021-04-21 06:40] LABS: ALT 6 U/L (4-34); AST 15 U/L (14-36); African American GFR (CKD) >90 (>60 ml/min/1.73 sqM); Alkaline Phosphatase 45 U/L (38-126); Anion Gap 6 mmol/L; Blood Urea Nitrogen <2 mg/dL (7-17); Calcium 7.8 mg/dL (8.4-10.2); Carbon Dioxide 23 mmol/L (22-30); Chloride 107 mmol/L (98-107); Glucose 122 mg/dL (74-99); Non-African American GFR(CKD) >90 (>60 ml/min/1.73 sqM); Potassium 3.1 mmol/L (3.5-5.1); Sodium 136 mmol/L (137-145); Total Bilirubin 0.7 mg/dL (0.2-1.3); Total Protein 5.5 g/dL (6.3-8.2)
[2021-04-21] MEDS: PIPERACILLIN-TAZOBACTAM 3.375 GM in SODIUM CHLORIDE 0.9% 100 ML IVPB SCH ×3 (07:50→23:03)
[2021-04-21] MEDS: PANTOPRAZOLE 40 MG TABLET PO SCH (07:50)
[2021-04-21] MEDS: HEPARIN SODIUM,PORCINE/PF 5,000 UNIT/0.5 ML SYRINGE SQ SCH ×2 (07:50→20:24)
[2021-04-21] MEDS ORDERED: Potassium Replacement Protocol 1 EACH MISC MISCELLANE PRN (10:01)
[2021-04-21] MEDS: POTASSIUM CHLORIDE ER 20 MEQ TAB.ER PO SCH ×4 (10:07→15:04)
--- NOTE | 2021-04-21 11:43 | P.PN ---
Subjective Progress Note Date: 04/21/21 CHIEF COMPLAINT: Abdominal pain HISTORY OF PRESENT ILLNESS: Patient is hospitalized for an acute perforated diverticulitis of the sigmoid colon with sepsis. Patient is no longer having fevers. Her tachycardia has improved. White count has normalized to 8.9. She does report some improvement in her abdominal pain and abdominal bloating. WBC [age]-year-old woman 9.7 sodium 136 potassium is 3.1 creatinine 0.51 Patient seen and examined with Dr. blankenship PHYSICAL EXAM: VITAL SIGNS: Reviewed. GENERAL: Well-developed in no acute distress. HEENT: No sclera icterus. Extraocular movements grossly intact. Moist buccal mucosa. Head is atraumatic, normocephalic. ABDOMEN: Soft. Mild distended. Diffuse tenderness with more tenderness in the left lower quadrant NEUROLOGIC: Alert and oriented. Cranial nerves II through XII grossly intact. ASSESSMENT: 1. Acute Perforated diverticulitis of the sigmoid colon 2. Sepsis present on admission due to diverticulitis and perforation 3. Prior history of diverticulitis PLAN: -Continue conservative management -Continue clear liquid diet -Would recommend to repeat computed tomography scan of the abdomen and pelvis only if patient's symptoms worsen. -Continue IV Zosyn -Continue IV fluid -Continue pain medication as needed -Encourage patient to ambulate -GI prophylaxis Protonix and DVT prophylaxis subcu heparin Physician [employer] Operator note has been reviewed by physician. Signing provider agrees with the documented findings, assessment, and plan of care. Objective - Vital Signs Vital signs: Vital Signs Temp 98.1 F 04/21/21 08:00 Pulse 74 04/21/21 08:00 Resp 18 04/21/21 08:00 BP 99/63 04/21/21 08:00 Pulse Ox 95 04/21/21 08:00 Intake & Output 04/20/21 04/21/21 04/21/21 18:59 06:59 18:59 Other: # Voids 1 3 - Labs CBC & Chem 7: 04/21/21 05:54 04/21/21 05:54 Labs: Abnormal Lab Results - Last 24 Hours (Table) 04/21/21 04/21/21 Range/Units 05:54 05:54 RBC 3.35 L (3.80-5.40) m/uL Hgb 9.7 L (11.4-16.0) gm/dL Hct 28.3 L (34.0-46.0) % Sodium 136 L (137-145) mmol/L Potassium 3.1 L (3.5-5.1) mmol/L BUN <2 L (7-17) mg/dL Creatinine 0.51 L (0.52-1.04) mg/dL Glucose 122 H (74-99) mg/dL Calcium 7.8 L (8.4-10.2) mg/dL Total Protein 5.5 L (6.3-8.2) g/dL Albumin 3.0 L (3.5-5.0) g/dL Microbiology - Last 24 Hours (Table) 04/18/21 09:18 Blood Culture - Preliminary Blood No Growth after 72 hours 04/18/21 09:18 Blood Culture - Preliminary Blood No Growth after 72 hours
--- NOTE | 2021-04-21 14:10 | P.PN ---
Subjective Progress Note Date: 04/21/21 HISTORY OF PRESENT ILLNESS This is a 46-year-old female patient of Dr. Odonnell with past medical history of hospitalization and 2019 for acute diverticulitis at which time she was treated conservatively and was seen by Dr. Garg. Patient states she had sudden onset of abdominal pain in the pelvis area bilaterally that started about a half hour after she ate supper, approximate 5:30 PM yesterday. She states she also had a bowel movement which was normal. No blood or tarry stools. No diarrhea. She has had nausea with fever and chills. Patient has not had any previous abdominal surgeries except for tubal ligation and uterine ablation. Patient came into [facility] emergency center for evaluation. She was found to be febrile at 100.3, heart rate 112, blood pressure 102/63, pulse ox 97% on room air. WBC 24.5. Hemoglobin 13.1, platelet count 421. Sodium 136, potassium 4.2, chloride 103, CO2 22, BUN 12 and creatinine 0.52. Blood sugar 142. Patient does not have history of diabetes. Urinalysis was turbid, blood small, leukoesterase moderate, WBCs 10, bacteria occasional. Lactic acid was 1.6. Urine hCG not detected. CAT scan of the abdomen and pelvis revealed acute to subacute diverticulitis the level of the mid sigmoid: With fat stranding, mild pelvic free fluid and scattered mild free intraperitoneal air. Large pocket of air is located just anterior to the inflamed segment of the sigmoid colon measuring and 0.3 x 0.6 cm. Suspect secondary inflammatory, enteritis at the level of the adjacent distal ileum. Likely some secondary mild inflammation of the adjacent bladder. Cystic change within the uterine which can be seen in adenomyosis. Patient was admitted to the pediatric floor and started on IV antibiotics, nothing by mouth, and Dilaudid for pain, Zofran for nausea. 04/19: Temperature max 102.7, heart rate 105, blood pressure 97/54, pulse ox 95% on room air. Repeat blood work reveals WBC 12.2, hemoglobin 10.3, platelet count 297. Creatinine 0.57. Calcium 7.6. Blood culture no growth at 24 hours. Patient remains on IV Zosyn, IV fluids, Dilaudid and Zofran. Patient is nothing by mouth status. 6/10: Patient states that she has passed gas but no bowel movement. She continues to have abdominal bloating but abdomen is soft. Temperature max 102.3, heart rate 95, blood pressure 103/60, pulse ox 94% on room air. WBC 10.9, Hemoccult and 10.2, platelet count 334. 6/11: Patient is doing much better, continued to pass gas with slight bowel movement still on clear liquid currently, pain is much better and temperature and chills are better than before. Continue conservative management no surgical intervention needed this point apparently general surgery are not in favor of doing another CAT scan at this point. REVIEW OF SYSTEMS Constitutional: No fever, no chills, no night sweats. No weight change. No weakness, fatigue or lethargy. No daytime sleepiness. EENT: No headache. No blurred vision or double vision, no loss of vision. No loss of Hearing, no ringing in the ears, no dizziness. No nasal drainage or congestion. No epistaxis. No sore throat. Lungs: No shortness of breath, cough, no sputum production. No wheezing. Cardiovascular: No chest pain, no lower extremity edema. No palpitations. No paroxysmal nocturnal dyspnea. No orthopnea. No lightheadedness or dizziness. No syncopal episodes. Abdominal: Reports abdominal pain. No nausea, vomiting. No diarrhea. No constipation. No bloody or tarry stools.. No loss of appetite. Genitourinary: No dysuria, increased frequency, urgency. No urinary retention. Musculoskeletal: No myalgias. No muscle weakness, no gait dysfunction, no frequent falls. No back pain. No neck pain. Integumentary: No wounds, no lesions. No rash or pruritus. No unusual bruising. No change in hair or nails. Neurologic: No aphasia. No facial droop. No change in mentation. No head injury. No headache. No paralysis. No paresthesia. Psychiatric: No depression. No anxiety. No mood swings. Endocrine: No abnormal blood sugars. No weight change. No excessive sweating or thirst. No cold intolerance. PHYSICAL EXAMINATION Gen: This is a 46-year-old female. She is resting in bed and appears to be comfortable and in no acute distress. HEENT: Head is atraumatic, normocephalic. Pupils equal, round. Sclerae is anicteric. NECK: Supple. No JVD. No lymphadenopathy. No thyromegaly. LUNGS: Clear to auscultation. No wheezes or rhonchi. No intercostal retractions. HEART: Regular rate and rhythm. No murmur. ABDOMEN: Soft, mild distention. Bowel sounds are hypoactive. No masses. Mild Bilateral lower quadrant tenderness. EXTREMITIES: No pedal edema. No calf tenderness. Dorsalis pedis +2 bilaterally. NEUROLOGICAL: Patient is awake, alert and oriented x3. Cranial nerves 2 through 12 are grossly intact. ASSESSMENT AND PLAN 1. Sepsis secondary to acute perforated diverticulitis of the sigmoid colon. Plan is for conservative management. Continue IV fluids at 100 mL per hour, clear liquid diet, Dilaudid as needed for pain and Zofran for nausea, Zosyn 3.375 g IV piggyback every 8 hours. 2. Ruptured diverticulitis: Continue conservative management with IV antibiotic, hydration and avoid surgery if possible. 3. Hyperglycemia most likely secondary to sepsis with without previous diagnoses of diabetes. Obtain hemoglobin A1c. 4. GI prophylaxis. Protonix 40 mg IV daily. 5. DVT prophylaxis. Heparin 5000 units subcu every 12 hours. DISCHARGE PLAN Home, most likely on Saturday. Objective - Vital Signs Vital signs: Vital Signs Temp 97.9 F 04/21/21 13:54 Pulse 71 04/21/21 13:54 Resp 16 04/21/21 13:54 BP 111/75 04/21/21 13:54 Pulse Ox 98 04/21/21 13:54 Intake & Output 04/20/21 04/21/21 04/21/21 18:59 06:59 18:59 Intake Total 640 Balance 640 Intake: Intake, IV Titration 100 Amount Piperacillin-Tazobactam 3 100 .375 gm In Sodium Chloride 0.9% 100 ml @ 25 mls/hr IVPB Q8HR [facility] Rx# :[id number] Oral 540 Other: # Voids 1 3 2 # Bowel Movements 1 - Labs CBC & Chem 7: 04/21/21 05:54 04/21/21 12:24 Labs: Abnormal Lab Results - Last 24 Hours (Table) 04/21/21 04/21/21 04/21/21 Range/Units 05:54 05:54 12:24 RBC 3.35 L (3.80-5.40) m/uL Hgb 9.7 L (11.4-16.0) gm/dL Hct 28.3 L (34.0-46.0) % Sodium 136 L (137-145) mmol/L Potassium 3.1 L 3.2 L (3.5-5.1) mmol/L BUN <2 L (7-17) mg/dL Creatinine 0.51 L (0.52-1.04) mg/dL Glucose 122 H (74-99) mg/dL Calcium 7.8 L (8.4-10.2) mg/dL Total Protein 5.5 L (6.3-8.2) g/dL Albumin 3.0 L (3.5-5.0) g/dL Microbiology - Last 24 Hours (Table) 04/18/21 09:18 Blood Culture - Preliminary Blood No Growth after 72 hours 04/18/21 09:18 Blood Culture - Preliminary Blood No Growth after 72 hours
[2021-04-21 14:49] VITALS: BMI 29.2
[2021-04-22] MEDS ORDERED: POTASSIUM CHLORIDE ER 20 MEQ TAB.ER PO SCH (08:00)
[2021-04-22] MEDS ORDERED: HYDROcodone/APAP 5-325MG 1 EACH TAB PO PRN (08:16)
--- NOTE | 2021-04-22 08:21 | P.PN ---
Subjective Progress Note Date: 04/22/21 HISTORY OF PRESENT ILLNESS This is a 46-year-old female patient of Dr. Odonnell with past medical history of hospitalization and 2019 for acute diverticulitis at which t odalis she was treated conservatively and was seen by Dr. Garg. Patient states she had sudden onset of abdominal pain in the pelvis area bilaterally that started about a half hour after she ate supper, approximate 5:30 PM yesterday. She states she also had a bowel movement which was normal. No blood or tarry stools. No diarrhea. She has had nausea with fever and chills. Patient has not had any previous abdominal surgeries except for tubal ligation and uterine ablation. Patient came into [facility] emergency center for evaluation. She was found to be febrile at 100.3, heart rate 112, blood pressure 102/63, pulse ox 97% on room air. WBC 24.5. Hemoglobin 13.1, platelet count 421. Sodium 136, potassium 4.2, chloride 103, CO2 22, BUN 12 and creatinine 0.52. Blood sugar 142. Patient does not have history of diabetes. Urinalysis was turbid, blood small, leukoesterase moderate, WBCs 10, bacteria occasional. Lactic acid was 1.6. Urine hCG not detected. CAT scan of the abdomen and pelvis revealed acute to subacute diverticulitis the level of the mid sigmoid: With fat stranding, mild pelvic free fluid and scattered mild free intraperitoneal air. Large pocket of air is located just anterior to the inflamed segment of the sigmoid colon measuring and 0.3 x 0.6 cm. Suspect secondary inflammatory, enteritis at the level of the adjacent distal ileum. Likely some secondary mild inflammation of the adjacent bladder. Cystic change within the uterine which can be seen in adenomyosis. Patient was admitted to the pediatric floor and started on IV antibiotics, nothing by mouth, and Dilaudid for pain, Zofran for nausea. 04/19: Temperature max 102.7, heart rate 105, blood pressure 97/54, pulse ox 95% on room air. Repeat blood work reveals WBC 12.2, hemoglobin 10.3, platelet count 297. Creatinine 0.57. Calcium 7.6. Blood culture no growth at 24 hours. Patient remains on IV Zosyn, IV fluids, Dilaudid and Zofran. Patient is nothing by mouth status. 04/20: Patient states that she has passed gas but no bowel movement. She continues to have abdominal bloating but abdomen is soft. Temperature max 102.3, heart rate 95, blood pressure 103/60, pulse ox 94% on room air. WBC 10.9, Hemoccult and 10.2, platelet count 334. 04/21: Patient is doing much better, continued to pass gas with slight bowel movement still on clear liquid currently, pain is much better and temperature and chills are better than before. Continue conservative management no surgical intervention needed this point apparently general surgery are not in favor of doing another CAT scan at this point. 04/22: She has been afebrile for 48 hours. Heart rate 85, blood pressure 113/72 , pulse ox 95% on room air. Potassium last afternoon was 3.6. Blood culture is no growth after 72 hours. Pain is improving and patient is requiring less IV pain meds. Pain and bloating worsened yesterday after eating clears yesterday so she is eating very little. She states she had a small bowel movement last night. IV fluids will be decreased to 50 cc/hr and encourage fluid intake.. REVIEW OF SYSTEMS Constitutional: No fever, no chills, no night sweats. No weight change. No weakness, fatigue or lethargy. No daytime sleepiness. EENT: No headache. No blurred vision or double vision, no loss of vision. No loss of Hearing, no ringing in the ears, no dizziness. No nasal drainage or congestion. No epistaxis. No sore throat. Lungs: No shortness of breath, cough, no sputum production. No wheezing. Cardiovascular: No chest pain, no lower extremity edema. No palpitations. No paroxysmal nocturnal dyspnea. No orthopnea. No lightheadedness or dizziness. No syncopal episodes. Abdominal: Reports abdominal pain. No nausea, vomiting. No diarrhea. No cons tipation. No bloody or tarry stools.. No loss of appetite. Genitourinary: No dysuria, increased frequency, urgency. No urinary retention. Musculoskeletal: No myalgias. No muscle weakness, no gait dysfunction, no frequent falls. No back pain. No neck pain. Integumentary: No wounds, no lesions. No rash or pruritus. No unusual bruising. No change in hair or nails. Neurologic: No aphasia. No facial droop. No change in mentation. No head injury. No headache. No paralysis. No paresthesia. Psychiatric: No depression. No anxiety. No mood swings. Endocrine: No abnormal blood sugars. No weight change. No excessive sweating or thirst. No cold intolerance. PHYSICAL EXAMINATION Gen: This is a 46-year-old female. She is resting in bed and appears to be comfortable and in no acute distress. HEENT: Head is atraumatic, normocephalic. Pupils equal, round. Sclerae is anicteric. NECK: Supple. No JVD. No lymphadenopathy. No thyromegaly. LUNGS: Clear to auscultation. No wheezes or rhonchi. No intercostal retractions. HEART: Regular rate and rhythm. No murmur. ABDOMEN: Soft, mild distention. Bowel sounds are hypoactive. No masses. Mild Bilateral lower quadrant tenderness. EXTREMITIES: No pedal edema. No calf tenderness. Dorsalis pedis +2 bilat erally. NEUROLOGICAL: Patient is awake, alert and oriented x3. Cranial nerves 2 through 12 are grossly intact. ASSESSMENT AND PLAN 1. Sepsis secondary to acute perforated diverticulitis of the sigmoid colon. Plan is for conservative management. Continue IV fluids decreased to 50 mL per hour, clear liquid diet, Dilaudid as needed for pain and Zofran for nausea, Zosyn 3.375 g IV piggyback every 8 hours. 2. Previous history of diverticulitis treated conservatively in 2019. 3. Hyperglycemia most likely secondary to sepsis with without previous diagnoses of diabetes. Obtain hemoglobin A1c. 4. GI prophylaxis. Protonix 40 mg IV daily. 5. DVT prophylaxis. Heparin 5000 units subcu every 12 hours. DISCHARGE PLAN Home. Impression and plan of care have been directed as dictated by the signing physician. Opal Ni nurse practitioner acting as scribe for signing physician. Objective - Vital Signs Vital signs: Vital Signs Temp 99.5 F 04/22/21 02:04 Pulse 85 04/22/21 02:04 Resp 16 04/22/21 02:04 BP 113/72 04/22/21 02:04 Pulse Ox 95 04/22/21 02:04 Intake & Output 04/21/21 04/22/21 04/22/21 18:59 06:59 18:59 Intake Total 1880 900 Balance 1880 900 Weight 74.843 kg Intake: Intake, IV Titration 1100 900 Amount Dextrose 5%-0.45% NaCl 1, 1000 900 000 ml @ 100 mls/hr IV . Q10H [facility] Rx#:[id number] Piperacillin-Tazobactam 3 100 .375 gm In Sodium Chloride 0.9% 100 ml @ 25 mls/hr IVPB Q8HR [facility] Rx# :[id number] Oral 780 Other: Voiding Method Toilet # Voids 2 5 # Bowel Movements 1 - Labs CBC & Chem 7: 04/21/21 05:54 04/21/21 16:01 Labs: Abnormal Lab Results - Last 24 Hours (Table) 04/21/21 Range/Units 12:24 Potassium 3.2 L (3.5-5.1) mmol/L Microbiology - Last 24 Hours (Table) 04/18/21 09:18 Blood Culture - Preliminary Blood No Growth after 72 hours 04/18/21 09:18 Blood Culture - Preliminary Blood No Growth after 72 hours
[2021-04-22] MEDS: PIPERACILLIN-TAZOBACTAM 3.375 GM in SODIUM CHLORIDE 0.9% 100 ML IVPB SCH ×2 (08:26→16:26)
[2021-04-22] MEDS: PANTOPRAZOLE 40 MG TABLET PO SCH (08:27)
[2021-04-22] MEDS: HEPARIN SODIUM,PORCINE/PF 5,000 UNIT/0.5 ML SYRINGE SQ SCH ×2 (08:27→20:36)
[2021-04-22] MEDS ORDERED: DEXTROSE 5%-0.45% NACL 1,000 ML IV SCH (08:30)
--- NOTE | 2021-04-22 12:15 | P.PN ---
Subjective Progress Note Date: 04/22/21 Principal diagnosis: Diverticulitis Patient says her pain is less today. She states that when she presses on her own abdomen there is much less soreness. She had 2 small bowel movements today. T-max 99.5. Tolerating liquids. Objective - Vital Signs Vital signs: Vital Signs Temp 98.3 F 04/22/21 08:25 Pulse 78 04/22/21 08:25 Resp 16 04/22/21 08:25 BP 112/74 04/22/21 08:25 Pulse Ox 96 04/22/21 08:25 Intake & Output 04/21/21 04/22/21 04/22/21 18:59 06:59 18:59 Intake Total 1880 900 Balance 1880 900 Weight 74.843 kg Intake: Intake, IV Titration 1100 900 Amount Dextrose 5%-0.45% NaCl 1, 1000 900 000 ml @ 100 mls/hr IV . Q10H [facility] Rx#:[id number] Piperacillin-Tazobactam 3 100 .375 gm In Sodium Chloride 0.9% 100 ml @ 25 mls/hr IVPB Q8HR [facility] Rx# :[id number] Oral 780 Other: Voiding Method Toilet # Voids 2 5 2 # Bowel Movements 1 - Exam Abdomen: Soft, nondistended, mild bilateral lower quadrant tenderness - Labs CBC & Chem 7: 04/21/21 05:54 04/21/21 16:01 Labs: Abnormal Lab Results - Last 24 Hours (Table) 04/21/21 Range/Units 12:24 Potassium 3.2 L (3.5-5.1) mmol/L Microbiology - Last 24 Hours (Table) 04/18/21 09:18 Blood Culture - Preliminary Blood No Growth after 96 hours 04/18/21 09:18 Blood Culture - Preliminary Blood No Growth after 96 hours Assessment and Plan (1) Diverticulitis Narrative/Plan: Patient doing better today. Continue clear liquids. Continue antibiotics. Ambulate. Hopefully advance diet tomorrow. Current Visit: Yes Status: Acute Code(s): K57.92 - DVTRCLI OF INTEST, PART UNSP, W/O PERF OR ABSCESS W/O BLEED SNOMED Code(s): 699445208
[2021-04-23] MEDS: PIPERACILLIN-TAZOBACTAM 3.375 GM in SODIUM CHLORIDE 0.9% 100 ML IVPB SCH ×2 (00:21→08:17)
[2021-04-23] MEDS ORDERED: SODIUM CHLORIDE 0.9% 1,000 ML IV SCH (00:30)
[2021-04-23] MEDS: HEPARIN SODIUM,PORCINE/PF 5,000 UNIT/0.5 ML SYRINGE SQ SCH (08:17)
[2021-04-23] MEDS: PANTOPRAZOLE 40 MG TABLET PO SCH (08:17)
[2021-04-23 08:28] VITALS: BP 109/71; PULSE 74; RESP 20; TEMP 98.7
--- NOTE | 2021-04-23 09:11 | P.PN ---
Subjective Progress Note Date: 04/23/21 HISTORY OF PRESENT ILLNESS This is a 46-year-old female patient of Dr. Odonnell with past medical history of hospitalization and 2019 for acute diverticulitis at which t odalis she was treated conservatively and was seen by Dr. Garg. Patient states she had sudden onset of abdominal pain in the pelvis area bilaterally that started about a half hour after she ate supper, approximate 5:30 PM yesterday. She states she also had a bowel movement which was normal. No blood or tarry stools. No diarrhea. She has had nausea with fever and chills. Patient has not had any previous abdominal surgeries except for tubal ligation and uterine ablation. Patient came into [facility] emergency center for evaluation. She was found to be febrile at 100.3, heart rate 112, blood pressure 102/63, pulse ox 97% on room air. WBC 24.5. Hemoglobin 13.1, platelet count 421. Sodium 136, potassium 4.2, chloride 103, CO2 22, BUN 12 and creatinine 0.52. Blood sugar 142. Patient does not have history of diabetes. Urinalysis was turbid, blood small, leukoesterase moderate, WBCs 10, bacteria occasional. Lactic acid was 1.6. Urine hCG not detected. CAT scan of the abdomen and pelvis revealed acute to subacute diverticulitis the level of the mid sigmoid: With fat stranding, mild pelvic free fluid and scattered mild free intraperitoneal air. Large pocket of air is located just anterior to the inflamed segment of the sigmoid colon measuring and 0.3 x 0.6 cm. Suspect secondary inflammatory, enteritis at the level of the adjacent distal ileum. Likely some secondary mild inflammation of the adjacent bladder. Cystic change within the uterine which can be seen in adenomyosis. Patient was admitted to the pediatric floor and started on IV antibiotics, nothing by mouth, and Dilaudid for pain, Zofran for nausea. 04/19: Temperature max 102.7, heart rate 105, blood pressure 97/54, pulse ox 95% on room air. Repeat blood work reveals WBC 12.2, hemoglobin 10.3, platelet count 297. Creatinine 0.57. Calcium 7.6. Blood culture no growth at 24 hours. Patient remains on IV Zosyn, IV fluids, Dilaudid and Zofran. Patient is nothing by mouth status. 04/20: Patient states that she has passed gas but no bowel movement. She continues to have abdominal bloating but abdomen is soft. Temperature max 102.3, heart rate 95, blood pressure 103/60, pulse ox 94% on room air. WBC 10.9, Hemoccult and 10.2, platelet count 334. 04/21: Patient is doing much better, continued to pass gas with slight bowel movement still on clear liquid currently, pain is much better and temperature and chills are better than before. Continue conservative management no surgical intervention needed this point apparently general surgery are not in favor of doing another CAT scan at this point. 04/22: She has been afebrile for 48 hours. Heart rate 85, blood pressure 113/72 , pulse ox 95% on room air. Potassium last afternoon was 3.6. Blood culture is no growth after 72 hours. Pain is improving and patient is requiring less IV pain meds. Pain and bloating worsened yesterday after eating clears yesterday so she is eating very little. She states she had a small bowel movement last night. IV fluids will be decreased to 50 cc/hr and encourage fluid intake.. 04/23: Patient examined resting in bed this morning reports pain control is much better and abdominal tenderness has improved. Did have bowel movement last evening, and tolerating clear liquid diet. Vital signs remained stable, patient is afebrile, pulse 74, blood pressure 109/71, pulse ox 96% on room air. Potassium remains low at 3.2 we'll do replacement per protocol. Hopefully advance diet if okay with surgery. REVIEW OF SYSTEMS Constitutional: No fever, no chills, no night sweats. No weight change. No weakness, fatigue or lethargy. No daytime sleepiness. EENT: No headache. No blurred vision or double vision, no loss of vision. No loss of Hearing, no ringing in the ears, no dizziness. No nasal drainage or congestion. No epistaxis. No sore throat. Lungs: No shortness of breath, cough, no sputum production. No wheezing. Cardiovascular: No chest pain, no lower extremity edema. No palpitations. No paroxysmal nocturnal dyspnea. No orthopnea. No lightheadedness or dizziness. No syncopal episodes. Abdominal: Reports mild abdominal pain. No nausea, vomiting. No diarrhea. No constipation. No bloody or tarry stools.. No loss of appetite. Genitourinary: No dysuria, increased frequency, urgency. No urinary retention. Musculoskeletal: No myalgias. No muscle weakness, no gait dysfunction, no frequent falls. No back pain. No neck pain. Integumentary: No wounds, no lesions. No rash or pruritus. No unusual bruising. No change in hair or nails. Neurologic: No aphasia. No facial droop. No change in mentation. No head injury. No headache. No paralysis. No paresthesia. Psychiatric: No depression. No anxiety. No mood swings. Endocrine: No abnormal blood sugars. No weight change. No excessive sweating or thirst. No cold intolerance. PHYSICAL EXAMINATION Gen: This is a 46-year-old female. She is resting in bed and appears to be comfortable and in no acute distress. HEENT: Head is atraumatic, normocephalic. Pupils equal, round. Sclerae is anicteric. NECK: Supple. No JVD. No lymphadenopathy. No thyromegaly. LUNGS: Clear to auscultation. No wheezes or rhonchi. No intercostal retractions. HEART: Regular rate and rhythm. No murmur. ABDOMEN: Soft, mild distention. Bowel sounds are increasing. No masses. Mild Bilateral lower quadrant tenderness. EXTREMITIES: No pedal edema. No calf tenderness. Dorsalis pedis +2 bilaterally. NEUROLOGICAL: Patient is awake, alert and oriented x3. Cranial nerves 2 through 12 are grossly intact. ASSESSMENT AND PLAN 1. Sepsis secondary to acute perforated diverticulitis of the sigmoid colon. Plan is for conservative management. Continue IV fluids decreased to 50 mL per hour, clear liquid diet, Dilaudid as needed for pain and Zofran for nausea, Zosyn 3.375 g IV piggyback every 8 hours. 2. Previous history of diverticulitis treated conservatively in 2019. 3. Hyperglycemia most likely secondary to sepsis with without previous diagnoses of diabetes. hemoglobin A1c was 5.7 4. GI prophylaxis. Protonix 40 mg IV daily. 5. DVT prophylaxis. Heparin 5000 units subcu every 12 hours. DISCHARGE PLAN Home. Impression and plan of care have been directed as dictated by the signing physician. Maira Lmyan nurse practitioner acting as scribe for signing physician. Objective - Vital Signs Vital signs: Vital Signs Temp 98.7 F 04/23/21 08:00 Pulse 74 04/23/21 08:00 Resp 20 04/23/21 08:00 BP 109/71 04/23/21 08:00 Pulse Ox 96 04/23/21 08:00 Intake & Output 04/22/21 04/23/21 04/23/21 18:59 06:59 18:59 Intake Total 200 Balance 200 Intake: Oral 200 Other: Voiding Method Toilet Toilet # Voids 3 1 1 # Bowel Movements 1 - Labs CBC & Chem 7: 04/21/21 05:54 04/23/21 06:44 Labs: Abnormal Lab Results - Last 24 Hours (Table) 04/23/21 Range/Units 06:44 Potassium 3.2 L (3.5-5.1) mmol/L Microbiology - Last 24 Hours (Table) 04/18/21 09:18 Blood Culture - Preliminary Blood No Growth after 96 hours 04/18/21 09:18 Blood Culture - Preliminary Blood No Growth after 96 hours
--- NOTE | 2021-04-23 11:59 | P.DS ---
Providers Date of admission: 04/18/21 09:02 Attending physician: Juan Palmer Consults: 04/18/21 10:59 Consult Physician Routine Consulting Provider: Ana Abernathy Consult Reason/Comments: medical management Do you want consulting provider notified?: Yes Primary care physician: Lázaro Odonnell - Discharge Diagnosis(es) (1) Diverticulitis Patient minute on 04/18 with acute complicated diverticulitis. CAT scan showed inflammatory changes with a few foci of free intraperitoneal air. Patient was treated conservatively with IV antibiotics and bowel rest. Gradually her pain improved and her diet was started. Currently tolerating clear liquids. Her pain is absent for the last 24-48 hours. She would like to go home today. Her white blood cell count is normal. She is afebrile. She is having good bowel function at this point. She was followed by the hospitalists as well during this hospital stay. We'll discharge with 1 week course of Augmentin and Flagyl. Follow-up with Dr. Palmer 1 week. She will return to the hospital with any recurrent pain, nausea vomiting, fevers. Will advance diet to full liquids at this time. Home if tolerates. Current Visit: Yes Status: Acute Plan - Discharge Summary Discharge Rx Participant: No New Discharge Prescriptions: New Amoxicillin/Potassium Clav [Augmentin 875-125 Tablet] 1 tab PO BID 7 Days #14 tab metroNIDAZOLE [Flagyl] 500 mg PO TID #21 tab Discharge Medication List Amoxicillin/Potassium Clav [Augmentin 875-125 Tablet] 1 tab PO BID 7 Days #14 tab 04/23/21 [Rx] metroNIDAZOLE [Flagyl] 500 mg PO TID #21 tab 04/23/21 [Rx] Follow up Appointment(s)/Referral(s): Lázaro Odonnell DO [Primary Care Provider] - 1 Week Juan Palmer MD [STAFF PHYSICIAN] - 04/27/21
== END 2021-04-23 14:33 | disposition home or self-care (01) | DRG 872 ==
LOC: EC 06:22 → 6PED 09:02
PROVIDERS: ADMIT Surgery; ATTEND Surgery
DX: A41.9 Sepsis, unspecified organism (principal); K57.20 Diverticulitis of large intestine with perforation and abscess without bleeding; K52.89 Other specified noninfective gastroenteritis and colitis; R73.9 Hyperglycemia, unspecified; N80.0 Endometriosis of uterus; N32.89 Other specified disorders of bladder; Z20.822 Contact with and (suspected) exposure to COVID-19; Z87.19 Personal history of other diseases of the digestive system; Z98.51 Tubal ligation status
CPT/HCPCS: 36415; 74177; 80048; 80053; 81001; 81025; 82150; 83036; 83605; 83690; 84132; 85025; 85027; 87040; 87635; 96361; 96374; 96375; 99285

== ENCOUNTER 2021-06-10 22:42 | Inpatient (IN) | payer OTHER ==
[2021-06-10] MEDS ORDERED: ACETAMINOPHEN TAB 325 MG TAB PO STA (23:04)
--- NOTE | 2021-06-10 23:20 | ED ---
Fever HPI - General Chief Complaint: Fever Stated Complaint: Fever, dizziness Time Seen by Provider: 06/10/21 23:03 Source: patient, family Mode of arrival: ambulatory Limitations: no limitations - History of Present Illness Initial Comments: This patient is a 46-year-old woman who presents to be evaluated for fever, myalgia and joint pains that started a little after noon today. The patient noticed that she felt hot and then was chilled. She was having diffuse myalgias and joint pains. She took her temperature at home and it was above 102. She rested for a while and was feeling better but then had an mother episode of chills and her temperature was higher than previous. Denies other symptoms. No history of kerr infection or immunization. Patient states she is to see Dr. Garg on Saturday in the clinic for follow-up related to diverticulitis which she has had approximately 6 times previously. Patient is having just a trace of right-sided abdominal pain today. MD Complaint: fever Onset/Timin -: hour(s) Temperature Source: other Associated Symptoms: chills, myalgias, headache, nausea Treatments Prior to Arrival: none - Related Data Home Medications Medication Instructions Recorded Confirmed No Known Home Medications 06/11/21 06/11/21 Allergies Allergy/AdvReac Type Severity Reaction Status Date / Time No Known Allergies Allergy Verified 06/10/21 22:47 Review of Systems ROS Statement: Those systems with pertinent positive or pertinent negative responses have been documented in the HPI. ROS Other: All systems not noted in ROS Statement are negative. Constitutional: Reports: fever, chills. Denies: weakness Eyes: Denies: eye pain, eye discharge ENT: Denies: ear pain, throat pain, congestion Respiratory: Denies: cough, dyspnea Cardiovascular: Denies: chest pain, palpitations, syncope Gastrointestinal: Reports: nausea. Denies: abdominal pain, vomiting, diarrhea, constipation Genitourinary: Denies: dysuria, frequency, hematuria Musculoskeletal: Reports: arthralgia, myalgia Skin: Denies: rash Neurological: Reports: headache. Denies: weakness, numbness Past Medical History Past Medical History: No Reported History Additional Past Medical History / Comment(s): diverticulitis History of Any Multi-Drug Resistant Organisms: None Reported Past Surgical History: Ablation, Tubal Ligation Past Anesthesia/Blood Transfusion Reactions: Previous Problems w/ Anesthesia Additional Past Anesthesia/Blood Transfusion Reaction / Comment(s): pt. reports she had low BP and hard time waking up Past Psychological History: No Psychological Hx Reported Smoking Status: Never smoker Past Alcohol Use History: None Reported Past Drug Use History: None Reported - Past Family History Father Additional Family Medical History / Comment(s): Patient does not know her fa ther. Mother Additional Family Medical History / Comment(s): Mother at age 45 from myocardial infarction. Brother(s) Additional Family Medical History / Comment(s): Patient has 1 brother with no major medical problems. No sisters. General Exam Limitations: no limitations General appearance: alert, in no apparent distress Head exam: Present: atraumatic, normocephalic Eye exam: Present: normal appearance. Absent: scleral icterus, conjunctival injection ENT exam: Present: normal oropharynx Neck exam: Present: normal inspection, full ROM. Absent: meningismus Respiratory exam: Present: normal lung sounds bilaterally. Absent: respiratory distress, wheezes, rales, rhonchi, stridor Cardiovascular Exam: Present: regular rate, normal rhythm, normal heart sounds. Absent: systolic murmur, diastolic murmur, rubs, gallop GI/Abdominal exam: Present: soft. Absent: distended, tenderness, guarding, rebound, rigid, mass Extremities exam: Present: normal inspection, normal capillary refill. Absent: pedal edema, calf tenderness Back exam: Present: normal inspection. Absent: CVA tenderness (R), CVA tenderness (L) Neurological exam: Present: alert Skin exam: Present: warm, dry, intact, normal color. Absent: rash Course Vital Signs 06/10/21 06/11/21 06/11/21 22:44 00:45 03:43 Temperature 103.2 F H 99.8 F H 98.2 F Pulse Rate 76 97 Respiratory 18 16 Rate Blood Pressure 99/60 98/52 O2 Sat by Pulse 100 100 Oximetry - Reevaluation(s) Reevaluation #1: 06/11/21 07:36 I did receive a call from interventional radiology. They have reviewed the imaging and feel that the abscess is not amenable to interventional radiology drainage. There does not appear to be adequate fluid content. Medical Decision Making - Medical Decision Making Case discussed with Dr. Garg who is on-call as trauma backup, and he requests that patient be admitted if possible under medicine with consultation to interventional radiology for possible CT-guided drainage of the abscess. Antibiotics and antipyretics started. - Lab Data Result diagrams: 06/11/21 00:15 06/11/21 00:15 Lab Results 06/10/21 06/11/21 06/11/21 Range/Units 23:14 00:15 00:15 WBC 17.8 H (3.8-10.6) k/uL RBC 4.23 (3.80-5.40) m/uL Hgb 12.1 (11.4-16.0) gm/dL Hct 35.2 (34.0-46.0) % MCV 83.1 (80.0-100.0) fL MCH 28.6 (25.0-35.0) pg MCHC 34.5 (31.0-37.0) g/dL RDW 15.8 H (11.5-15.5) % Plt Count 350 (150-450) k/uL MPV 7.3 Neutrophils % 95 % Lymphocytes % 2 % Monocytes % 2 % Eosinophils % 1 % Basophils % 0 % Neutrophils # 16.9 H (1.3-7.7) k/uL Lymphocytes # 0.4 L (1.0-4.8) k/uL Monocytes # 0.3 (0-1.0) k/uL Eosinophils # 0.1 (0-0.7) k/uL Basophils # 0.0 (0-0.2) k/uL Sodium 132 L (137-145) mmol/L Potassium 3.7 (3.5-5.1) mmol/L Chloride 100 (98-107) mmol/L Carbon Dioxide 22 (22-30) mmol/L Anion Gap 10 mmol/L BUN 6 L (7-17) mg/dL Creatinine 0.44 L (0.52-1.04) mg/dL Est GFR (CKD-EPI)AfAm >90 (>60 ml/min/1.73 sqM) Est GFR (CKD-EPI)NonAf >90 (>60 ml/min/1.73 sqM) Glucose 114 H (74-99) mg/dL Calcium 9.2 (8.4-10.2) mg/dL Total Bilirubin 0.4 (0.2-1.3) mg/dL AST 24 (14-36) U/L ALT 12 (4-34) U/L Alkaline Phosphatase 47 (38-126) U/L C-Reactive Protein 3.3 H (<1.0) mg/dL Total Protein 6.7 (6.3-8.2) g/dL Albumin 4.1 (3.5-5.0) g/dL Urine Color Yellow Urine Appearance Clear (Clear) Urine pH 6.0 (5.0-8.0) Ur Specific [place] 1.015 (1.001-1.035) Urine Protein Negative (Negative) Urine Glucose (UA) Negative (Negative) Urine Ketones Negative (Negative) Urine Blood Negative (Negative) Urine Nitrite Negative (Negative) Urine Bilirubin Negative (Negative) Urine Urobilinogen <2.0 (<2.0) mg/dL Ur Leukocyte Esterase Negative (Negative) Disposition Clinical Impression: Fever, Abscess Disposition: ADMITTED IP TO THIS HOSP Condition: Fair
[2021-06-10 23:47] LABS: Appearance,Urine Clear (Clear); Bilirubin,Urine Negative (Negative); Blood,Urine Negative (Negative); Color,Urine Yellow; Glucose,Urine (UA) Negative (Negative); Ketones,Urine Negative (Negative); Leukocyte Esterase,Urine Negative (Negative); Nitrite,Urine Negative (Negative); Protein,Urine Negative (Negative); Specific Gravity,Urine 1.015 (1.001-1.035); Urobilinogen,Urine <2.0 mg/dL (<2.0)
--- NOTE | 2021-06-10 23:59 | XR ---
EXAMINATION TYPE: XR chest 2V DATE OF EXAM: 06/10/2021 COMPARISON: NONE HISTORY: Fever. TECHNIQUE: 2 views FINDINGS: Heart is normal. Lungs are clear of consolidation. There are no hilar masses. Costophrenic angles are clear. Bony thorax is intact. There is no heart failure. IMPRESSION: No active cardiopulmonary disease. Normal heart.
[2021-06-11 00:46] LABS: Basophils % (A) 0 %; Eosinophils # (A) 0.1 k/uL (0-0.7); Eosinophils % (A) 1 %; HCT 35.2 % (34.0-46.0); HGB 12.1 gm/dL (11.4-16.0); Lymphocytes # (A) 0.4 k/uL (1.0-4.8); Lymphocytes % (A) 2 %; MCH 28.6 pg (25.0-35.0); MCHC 34.5 g/dL (31.0-37.0); MCV 83.1 fL (80.0-100.0); Mean Platelet Volume 7.3; Monocytes # (A) 0.3 k/uL (0-1.0); Monocytes % (A) 2 %; Neutrophils # (A) 16.9 k/uL (1.3-7.7); Neutrophils % (A) 95 %; Platelet Count 350 k/uL (150-450); RBC 4.23 m/uL (3.80-5.40); RDW 15.8 % (11.5-15.5); WBC 17.8 k/uL (3.8-10.6)
[2021-06-11 00:58] LABS: ALT 12 U/L (4-34); AST 24 U/L (14-36); African American GFR (CKD) >90 (>60 ml/min/1.73 sqM); Albumin 4.1 g/dL (3.5-5.0); Alkaline Phosphatase 47 U/L (38-126); Anion Gap 10 mmol/L; Blood Urea Nitrogen 6 mg/dL (7-17); C Reactive Protein 3.3 mg/dL (<1.0); Calcium 9.2 mg/dL (8.4-10.2); Carbon Dioxide 22 mmol/L (22-30); Chloride 100 mmol/L (98-107); Glucose 114 mg/dL (74-99); Non-African American GFR(CKD) >90 (>60 ml/min/1.73 sqM); Potassium 3.7 mmol/L (3.5-5.1); Sodium 132 mmol/L (137-145); Total Bilirubin 0.4 mg/dL (0.2-1.3); Total Protein 6.7 g/dL (6.3-8.2)
--- NOTE | 2021-06-11 02:03 | CT ---
EXAMINATION TYPE: CT abdomen pelvis w con DATE OF EXAM: 06/11/2021 COMPARISON: 04/18/2021 HISTORY: RUQ ABD PAIN CT DLP: 918 mGycm Automated exposure control for dose reduction was used. CONTRAST: Performed with IV Contrast, patient injected with 100 mL of Isovue 300. Images obtained from the diaphragm to the floor the pelvis with IV contrast. There is mild subsegmental atelectasis at the lung bases. Heart size is normal. There is no pericardi al effusion. Liver spleen pancreas stomach gallbladder appear intact. Bile ducts are not dilated. There is no adrenal mass. Kidneys show satisfactory contrast opacification. There is no hydronephrosi s. Appendix is posterior and appears normal. The delayed images show normal renal excretion. There is no retroperitoneal adenopathy. Bladder distends smoothly. There is no inguinal hernia. There is no f ree fluid in the pelvis. Uterus is anteverted. There are multiple sigmoid diverticula. There is a complex mass adjacent to the urinary bladder measu ring 3.3 cm that contains an air bubble and consistent with peridiverticular abscess which is inferio r to the mid sigmoid colon. There are cysts on the left ovary that measure up to 2 cm. There is no mesenteric edema. There is no bowel obstruction. The lumbar vertebra have normal alignmen t. There is no compression fracture. The bony pelvis is intact. Hip joints are intact. There is no hi p dysplasia. IMPRESSION: Diverticular abscess inferior to the mid sigmoid colon in region of extraluminal air bubbles on the C T scan of 04/18/2021. There is clearing of the free fluid in the pelvis compared to old exam. Normal appendix.
[2021-06-11] MEDS ORDERED: metroNIDAZOLE-NS PMX 500 MG in SALINE 1 100ML.BAG IVPB STA (02:55)
[2021-06-11] MEDS: LEVOFLOXACIN 750MG-D5W PMX 750 MG in DEXTROSE/WATER 1 150ML.BAG IVPB STA ×2 (03:02→03:11)
[2021-06-11] MEDS ORDERED: ACETAMINOPHEN TAB 325 MG TAB PO PRN (03:12)
[2021-06-11] MEDS ORDERED: NALOXONE 0.4 MG/ML 1 ML VIAL IV PRN (03:12)
[2021-06-11] MEDS ORDERED: MORPHINE SULFATE 4 MG/ML SYRINGE IV PRN (03:12)
[2021-06-11] MEDS ORDERED: metroNIDAZOLE-NS PMX 500 MG in SALINE 1 100ML.BAG IVPB SCH (03:15)
[2021-06-11] MEDS: SODIUM CHLORIDE 0.9% 1,000 ML IV SCH ×3 (03:37→18:33)
[2021-06-11] MEDS ORDERED: ACETAMINOPHEN IV (For NPO) 1,000 MG in EMPTY BAG 1 BAG IVPB PRN (04:17)
[2021-06-11] MEDS: ONDANSETRON 4 MG/2 ML VIAL IVP PRN (04:40)
[2021-06-11] MEDS ORDERED: FAMOTIDINE 20 MG TAB PO SCH (09:00)
--- NOTE | 2021-06-11 10:59 | P.GSCN ---
History of Present Illness Consult date: 06/11/21 History of present illness: 46-year-old female presented to the emergency department with complaints of fevers and chills. She states that the fevers started over the past 24 hours and seemed to break on their own and cause chills. Initially, she did not complain of any abdominal pain. She is noted to have an admission approximately 2 months ago secondary to acute diverticulitis with suspected perforation. She states that at that time, conservative management was used with IV antibiotics as an inpatient and then oral antibiotics as an outpatient. She states that since her discharge approximately 2 months ago she has been doing well and has not had any significant abdominal pain. She was to follow with me in the office tomorrow secondary to diverticulitis and to discuss any surgical or endoscopy planning based on the fact that she has had 6 episodes of diverticulitis over the past 2 years. She was originally seen by myself in June 2019. CT of the abdomen and pelvis was performed by the emergency department that was read as a complex-appearing 3.3 cm abscess inferior to the sigmoid colon. Patient denies any significant lower abdominal pain. She denies any pain with urination, however states that she does feel occasional pressure. She states that over the past 2 months she has been having regular bowel movements and has denied any nausea or vomiting with oral diet. Review of Systems All systems: negative Past Medical History Past Medical History: No Reported History Additional Past Medical History / Comment(s): diverticulitis History of Any Multi-Drug Resistant Organisms: None Reported Past Surgical History: Ablation, Tubal Ligation Past Anesthesia/Blood Transfusion Reactions: Previous Problems w/ Anesthesia Additional Past Anesthesia/Blood Transfusion Reaction / Comm: pt. reports she had low BP and hard time waking up Past Psychological History: No Psychological Hx Reported Smoking Status: Never smoker Past Alcohol Use History: None Reported Past Drug Use History: None Reported - Past Family History Father Additional Family Medical History / Comment(s): Patient does not know her father. Mother Additional Family Medical History / Comment(s): Mother at age 45 from myocardial infarction. Brother(s) Family Medical History: No Reported History Additional Family Medical History / Comment(s): Patient has 1 brother with no major medical problems. No sisters. Medications and Allergies Home Medications Medication Instructions Recorded Confirmed Type No Known Home Medications 06/11/21 06/11/21 History Allergies Allergy/AdvReac Type Severity Reaction Status Date / Time No Known Allergies Allergy Verified 06/11/21 08:03 Surgical - Exam Osteopathic Statement: *. No significant issues noted on an osteopathic structural exam other than those noted in the History and Physical/Consult. Vital Signs Temp Pulse Resp BP Pulse Ox 103.2 F H 76 18 99/60 100 06/10/21 22:44 06/10/21 22:44 06/10/21 22:44 06/10/21 22:44 06/10/21 22:44 - General well nourished, no distress - Eyes normal ocular movement - ENT no hearing loss - Neck trachea midline - Respiratory normal respiratory effort - Abdomen Soft, no significant tenderness to palpation, nondistended, no rebound, no guarding - Psychiatric oriented to time, oriented to person, oriented to place Results - Labs 06/11/21 00:15 06/11/21 00:15 Abnormal Lab Results - Last 24 Hours (Table) 06/11/21 06/11/21 06/11/21 Range/Units 00:15 00:15 06:05 WBC 17.8 H (3.8-10.6) k/uL RDW 15.8 H (11.5-15.5) % Neutrophils # 16.9 H (1.3-7.7) k/uL Lymphocytes # 0.4 L (1.0-4.8) k/uL Sodium 132 L (137-145) mmol/L BUN 6 L (7-17) mg/dL Creatinine 0.44 L (0.52-1.04) mg/dL Glucose 114 H (74-99) mg/dL Plasma Lactic Acid Dewayne 0.6 L (0.7-2.0) mmol/L C-Reactive Protein 3.3 H (<1.0) mg/dL Diabetes panel 06/11/21 Range/Units 00:15 Sodium 132 L (137-145) mmol/L Potassium 3.7 (3.5-5.1) mmol/L Chloride 100 (98-107) mmol/L Carbon Dioxide 22 (22-30) mmol/L BUN 6 L (7-17) mg/dL Creatinine 0.44 L (0.52-1.04) mg/dL Glucose 114 H (74-99) mg/dL Calcium 9.2 (8.4-10.2) mg/dL AST 24 (14-36) U/L ALT 12 (4-34) U/L Alkaline Phosphatase 47 (38-126) U/L Total Protein 6.7 (6.3-8.2) g/dL Albumin 4.1 (3.5-5.0) g/dL Calcium panel 06/11/21 Range/Units 00:15 Calcium 9.2 (8.4-10.2) mg/dL Albumin 4.1 (3.5-5.0) g/dL Pituitary panel 06/11/21 Range/Units 00:15 Sodium 132 L (137-145) mmol/L Potassium 3.7 (3.5-5.1) mmol/L Chloride 100 (98-107) mmol/L Carbon Dioxide 22 (22-30) mmol/L BUN 6 L (7-17) mg/dL Creatinine 0.44 L (0.52-1.04) mg/dL Glucose 114 H (74-99) mg/dL Calcium 9.2 (8.4-10.2) mg/dL Adrenal panel 06/11/21 Range/Units 00:15 Sodium 132 L (137-145) mmol/L Potassium 3.7 (3.5-5.1) mmol/L Chloride 100 (98-107) mmol/L Carbon Dioxide 22 (22-30) mmol/L BUN 6 L (7-17) mg/dL Creatinine 0.44 L (0.52-1.04) mg/dL Glucose 114 H (74-99) mg/dL Calcium 9.2 (8.4-10.2) mg/dL Total Bilirubin 0.4 (0.2-1.3) mg/dL AST 24 (14-36) U/L ALT 12 (4-34) U/L Alkaline Phosphatase 47 (38-126) U/L Total Protein 6.7 (6.3-8.2) g/dL Albumin 4.1 (3.5-5.0) g/dL Assessment and Plan Plan: 46-year-old female with concern for intra-abdominal abscess, and the peridiverticular space. With recent perforated diverticulitis episode 2 months ago, there is concern for abscess adjacent to the site of perforation. Currently, patient is having no abdominal pain or abdominal symptoms. She is having systemic signs of infection with febrile episodes and improved tachycardia. Case was discussed with interventional radiology, Dr. Lucas. Based on his evaluation of the CT, the abscess cavity does not contain a significant amount of fluid and is too small to fit a catheter for drainage and is not amenable to drainage at this time. Based on discussion with the patient, patient would like to avoid ostomy creation in any surgical procedure and is opting for extended IV antibiotic treatment. Infectious diseases consultation for this purpose. We will continue to follow the patient and make surgical decisions based on the patient's clinical progress.
[2021-06-11] MEDS ORDERED: KETOROLAC 15 MG/ML 1 ML VIAL IVP PRN (11:42)
[2021-06-11] MEDS: metroNIDAZOLE-NS PMX 500 MG in SALINE 1 100ML.BAG IVPB SCH ×2 (11:45→19:24)
--- NOTE | 2021-06-11 15:36 | P.HPIM ---
History of Present Illness H&P Date: 06/11/21 46 years female with history of diverticulitis who was admitted on 04/18 for acute complicated diverticulitis with foci of free intraperitoneal air. Patient was treated concentrated urine with IV antibiotics and bowel rest. She completed Augmentin and Flagyl as outpatient. Patient is doing well until 2 days ago when she started having high fever associated with chills. Patient had a slight discomfort in the pelvic area since she had her diverticulitis but denies any nausea or vomiting abdominal pain. Patient endorses intermittent episodes of diverticulitis for the past 2 years. Vitals in the ER patient had a temperature 103 pulse 76 respiratory rate 18 blood pressure 99/60. Patient has a leukocytosis of 17.8, sodium 132 potassium 3.7, chloride 100 bicarb 22 BUN 6 creatinine 0.44 glucose 114 lactic acid 0.6 CRP 3.3 UA was negative for infection. Patient was seen by surgery and plan for conservative management was made as there is not enough fluid to be drained by IR. Patient initiated on levofloxacin and metronidazole. Blood culture obtained. Infectious disease consulted CAT scan of the abdomen and pelvis obtained in the ER suggested diverticular abscess inferior to the mid sigmoid colon in region of extraluminal air bubbles on the CAT scan of 04/18/2021 Chest x-ray no acute intraluminal process. ROS Constitutional: Endorses fever and chills, Denies lethargy, Denies malaise, Denies poor appetite, Denies weakness, Denies weight loss Eyes: denies decreased vision, denies diplopia, denies discharge, denies pain Ears: deny: decreased hearing Ears, nose, mouth and throat: Denies dental pain, Denies headache, Denies nasal discharge, Denies nose pain Cardiovascular: Denies chest pain, Denies decreased exercise tolerance, Denies edema, Denies high blood pressure, Denies irregular heart beat, Denies palpitations, Denies paroxysmal nocturnal dyspnea, Denies rapid heart beat, Denies shortness of breath Respiratory: Denies congestion, Denies cough, Denies cough with sputum, Denies dyspnea, Denies home oxygen, Denies wheezing Gastrointestinal: Denies abdominal pain, endorses pelvic discomfort Denies zimmer ge in bowel habits, Denies coffee ground emesis, Denies early satiety, Denies excessive gas, Denies heartburn, Denies hematemesis, Denies hematochezia, Denies loss of appetite, Denies nausea, Denies vomiting Genitourinary: Denies dysuria, Denies flank pain, Denies kidney stones, Denies menorrhagia, Denies urgency, Denies urinary frequency Musculoskeletal: Denies gait dysfunction, Denies limitation of motion, Denies morning stiffness, Denies muscle cramps Integumentary: Denies rash, Denies wounds, Denies brittle nails, Denies change in hair/nails, Denies darkening of skin Neurological: Denies balance difficulties, Denies change in speech, Denies double vision, Denies gait dysfunction, Denies loss of vision, Denies motor disturbance, Denies numbness, Denies paralysis, Denies paresthesias, Denies seizures Psychiatric: Denies anxiety, Denies depression Endocrine: Denies excessive sweating, Denies excessive thirst, Denies high blood sugars, Denies palpitations Hematologic/Lymphatic: Denies easy bruising, Denies lymphadenopathy Social history Nonsmoker nondrinker no illicit drug use. Patient has 2 children healthy Family history Mother had a heart attack at the age of 45 Father history unknown Brother no medical problem healthy Physical exam - Constitutional General appearance: cooperative, no acute distress, - EENT Eyes: anicteric sclerae, PERRLA, normal appearance ENT: hearing grossly normal - Neck Neck: no lymphadenopathy, normal ROM, no other, no rigidity, no stridor, no thyromegaly - Respiratory Respiratory: bilateral: CTA, negative: diminished, dullness, rales, rhonchi - Cardiovascular Rhythm: regular Heart sounds: normal: S1, S2 Abnormal Heart Sounds: no systolic murmur, no diastolic murmur, no rub, no S3 Gallop, no S4 Gallop, no click, no other - Gastrointestinal General gastrointestinal: normal bowel sounds, soft tender right and left lower quadrant no guarding no rebound - Integumentary Integumentary: no rash - Neurologic Neurologic: CNII-XII intact no major motor or sensory deficit - Musculoskeletal Musculoskeletal: gait normal, strength equal bilaterally - Psychiatric Psychiatric: A&O x's 3, appropriate affect Assessment and plan #1 sepsis secondary to acute complicated diverticular abscess. Continue IV fluids at 1 30 mL per hour. Continue antibiotics with levofloxacin and Flagyl. CRP elevated. Infectious disease consulted. Surgery consulted. IR placed a drainage is on hold since there is not enough abscess to be drained. Blood culture obtained. Continue to monitor. Pain control with Tylenol #2 DVT prophylaxis and encourage ambulation and SCDs #3 GI prophylaxis with pantoprazole 40 mg once a day #4 Code status full code #5 disposition patient in 1-2 inpatient nights for hospitalization Past Medical History Past Medical History: No Reported History Additional Past Medical History / Comment(s): diverticulitis History of Any Multi-Drug Resistant Organisms: None Reported Past Surgical History: Ablation, Tubal Ligation Past Anesthesia/Blood Transfusion Reactions: Previous Problems w/ Anesthesia Additional Past Anesthesia/Blood Transfusion Reaction / Comment(s): pt. reports she had low BP and hard time waking up Past Psychological History: No Psychological Hx Reported Smoking Status: Never smoker Past Alcohol Use History: None Reported Past Drug Use History: None Reported - Past Family History Father Additional Family Medical History / Comment(s): Patient does not know her f ather. Mother Additional Family Medical History / Comment(s): Mother at age 45 from myocardial infarction. Brother(s) Family Medical History: No Reported History Additional Family Medical History / Comment(s): Patient has 1 brother with no major medical problems. No sisters. Medications and Allergies Home Medications Medication Instructions Recorded Confirmed Type No Known Home Medications 06/11/21 06/11/21 History Allergies Allergy/AdvReac Type Severity Reaction Status Date / Time No Known Allergies Allergy Verified 06/11/21 08:03 Physical Exam Vitals: Vital Signs Temp Pulse Pulse Pulse Resp BP BP 06/11/21 07:33 98.2 F 88 16 87/49 06/11/21 05:16 100.8 F H 06/11/21 04:01 99.4 F 117 H 18 06/11/21 03:43 98.2 F 97 16 98/52 06/11/21 00:45 99.8 F H 06/10/21 22:44 103.2 F H 76 18 99/60 BP Pulse Ox 06/11/21 07:33 90/58 98 06/11/21 05:16 06/11/21 04:01 104/68 99 06/11/21 03:43 100 06/11/21 00:45 06/10/21 22:44 100 Intake and Output 06/10/21 06/11/21 06/11/21 22:59 06:59 14:59 Other: # Voids 1 Weight 72.575 kg 72.9 kg Results CBC & Chem 7: 06/11/21 00:15 06/11/21 00:15 Labs: Abnormal Lab Results - Last 24 Hours (Table) 06/11/21 06/11/21 06/11/21 Range/Units 00:15 00:15 06:05 WBC 17.8 H (3.8-10.6) k/uL RDW 15.8 H (11.5-15.5) % Neutrophils # 16.9 H (1.3-7.7) k/uL Lymphocytes # 0.4 L (1.0-4.8) k/uL Sodium 132 L (137-145) mmol/L BUN 6 L (7-17) mg/dL Creatinine 0.44 L (0.52-1.04) mg/dL Glucose 114 H (74-99) mg/dL Plasma Lactic Acid Dewayne 0.6 L (0.7-2.0) mmol/L C-Reactive Protein 3.3 H (<1.0) mg/dL Thrombosis Risk Factor Assmnt - Choose All That Apply Any of the Below Risk Factors Present?: Yes Each Factor Represents 1 point: Age 41-60 years Other Risk Factors: No Thrombosis Risk Factor Assessment Total Risk Factor Score: 1 Thrombosis Risk Factor Assessment Level: Low Risk
[2021-06-11] MEDS: PIPERACILLIN-TAZOBACTAM 3.375 GM in SODIUM CHLORIDE 0.9% 100 ML IVPB SCH (23:22)
[2021-06-12] MEDS ORDERED: LEVOFLOXACIN 750MG-D5W PMX 750 MG in DEXTROSE/WATER 1 150ML.BAG IVPB SCH (03:00)
[2021-06-12] MEDS: metroNIDAZOLE-NS PMX 500 MG in SALINE 1 100ML.BAG IVPB SCH ×3 (03:28→20:26)
[2021-06-12] MEDS: SODIUM CHLORIDE 0.9% 1,000 ML IV SCH ×3 (03:29→16:02)
[2021-06-12 06:55] LABS: Basophils % (A) 0 %; Eosinophils # (A) 0.1 k/uL (0-0.7); Eosinophils % (A) 1 %; HCT 33.7 % (34.0-46.0); HGB 11.3 gm/dL (11.4-16.0); Lymphocytes # (A) 0.4 k/uL (1.0-4.8); Lymphocytes % (A) 6 %; MCH 28.7 pg (25.0-35.0); MCHC 33.5 g/dL (31.0-37.0); MCV 85.6 fL (80.0-100.0); Mean Platelet Volume 6.9; Monocytes # (A) 0.3 k/uL (0-1.0); Monocytes % (A) 5 %; Neutrophils # (A) 5.4 k/uL (1.3-7.7); Neutrophils % (A) 87 %; Platelet Count 263 k/uL (150-450); RBC 3.94 m/uL (3.80-5.40); RDW 15.9 % (11.5-15.5); WBC 6.2 k/uL (3.8-10.6)
[2021-06-12 07:03] LABS: ALT 12 U/L (4-34); AST 27 U/L (14-36); African American GFR (CKD) >90 (>60 ml/min/1.73 sqM); Alkaline Phosphatase 36 U/L (38-126); Anion Gap 7 mmol/L; Blood Urea Nitrogen 8 mg/dL (7-17); Calcium 8.1 mg/dL (8.4-10.2); Carbon Dioxide 24 mmol/L (22-30); Chloride 108 mmol/L (98-107); Glucose 84 mg/dL (74-99); Non-African American GFR(CKD) >90 (>60 ml/min/1.73 sqM); Potassium 3.8 mmol/L (3.5-5.1); Sodium 139 mmol/L (137-145); Total Bilirubin 0.3 mg/dL (0.2-1.3); Total Protein 5.6 g/dL (6.3-8.2)
[2021-06-12 07:22] LABS: C Reactive Protein 5.6 mg/dL (<1.0)
[2021-06-12] MEDS: PIPERACILLIN-TAZOBACTAM 3.375 GM in SODIUM CHLORIDE 0.9% 100 ML IVPB SCH ×3 (08:23→23:22)
[2021-06-12] MEDS: PANTOPRAZOLE 40 MG/10 ML VIAL IVP SCH (08:25)
--- NOTE | 2021-06-12 08:29 | P.CONS ---
History of Present Illness - Reason for Consult Consult date: 06/11/21 Intra-abdominal abscess Requesting physician: Ana Abernathy - Chief Complaint Fever and chills x one day - History of Present Illness Patient is a 46-year female with a past medical history significant for recurrent diverticulitis and mention she was admitted to the hospital back in April for an episode of perforated diverticulitis no mention of any abscess that has been treated with the IV antibiotics for 5 days and subsequent discharged home on the oral antibiotics, patient is now presenting to the [facility] ER last night for evaluation of a fever myalgia and joint pains that started the day of presentation to the hospital patient mention she felt hot and chilled all day long with the myalgias and joint pain she noticed to have a fever of 124 right at home patient did mention she did have a abdominal pain but this seemed to be chronic for her and did not notice any worsening abdominal pain 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 patient denies have some nausea but no vomiting denies have any constipation or diarrhea on presentation to the hospital the patient had a fever of 103 F patient was not tachycardic or hypoxic did have white count of 17.8 with a left shift kidney function has been normal urine was negative patient did have a chest x-ray no active cardiopulmonary disease did have a CT of abdominal pelvis diverticular abscess inferior to the mid sigmoid colon normal appendix the patient was started on Levaquin and Flagyl she has been admitted to the hospital infectious disease was consulted for further management of antibiotic therapy Review of Systems Positive point has been mentioned in the HPI rest of the systems are negative Past Medical History Past Medical History: No Reported History Additional Past Medical History / Comment(s): diverticulitis History of Any Multi-Drug Resistant Organisms: None Reported Past Surgical History: Ablation, Tubal Ligation Past Anesthesia/Blood Transfusion Reactions: Previous Problems w/ Anesthesia Additional Past Anesthesia/Blood Transfusion Reaction / Comm: pt. reports she had low BP and hard time waking up Past Psychological History: No Psychological Hx Reported Smoking Status: Never smoker Past Alcohol Use History: None Reported Past Drug Use History: None Reported - Past Family History Father Additional Family Medical History / Comment(s): Patient does not know her father. Mother Additional Family Medical History / Comment(s): Mother at age 45 from myocardial infarction. Brother(s) Family Medical History: No Reported History Additional Family Medical History / Comment(s): Patient has 1 brother with no major medical problems. No sisters. Medications and Allergies Home Medications Medication Instructions Recorded Confirmed Type No Known Home Medications 06/11/21 06/11/21 History Allergies Allergy/AdvReac Type Severity Reaction Status Date / Time No Known Allergies Allergy Verified 06/11/21 08:03 Physical Exam Vitals: Vital Signs Temp Pulse Pulse Pulse Resp BP BP 06/11/21 15:36 98.8 F 96 16 06/11/21 11:52 86 06/11/21 11:49 78 06/11/21 11:48 98.6 F 77 16 06/11/21 07:33 98.2 F 88 16 87/49 06/11/21 05:16 100.8 F H 06/11/21 04:01 99.4 F 117 H 18 06/11/21 03:43 98.2 F 97 16 98/52 06/11/21 00:45 99.8 F H 06/10/21 22:44 103.2 F H 76 18 99/60 BP BP BP BP Pulse Ox 06/11/21 15:36 91/54 96 06/11/21 11:52 99/63 06/11/21 11:49 99/65 06/11/21 11:48 91/58 100 06/11/21 07:33 90/58 98 06/11/21 05:16 06/11/21 04:01 104/68 99 06/11/21 03:43 100 06/11/21 00:45 06/10/21 22:44 100 Intake and Output 06/11/21 06/11/21 06/11/21 06:59 14:59 22:59 Other: # Voids 1 Weight 72.9 kg GENERAL DESCRIPTION: Middle-aged female lying in bed, no distress. No tachypnea or accessory muscle of respiration use. HEENT: Shows Pallor , no scleral icterus. Oral mucous membrane is dry. No pharyngeal erythema or thrush NECK: Trachea central, no thyromegaly. LUNGS: Unlabored breathing. Clear to auscultation anteriorly. No wheeze or crackle. HEART: S1, S2, regular rate and rhythm. No loud murmur ABDOMEN: Soft, mild tenderness , guarding or rigidity, no organomegaly EXTREMITIES: No edema of feet. SKIN: No rash, no masses palpable. NEUROLOGICAL: The patient is awake, alert, oriented x3, mood and affect normal. Results CBC & Chem 7: 06/12/21 06:29 06/12/21 06:29 Labs: Abnormal Lab Results - Last 24 Hours (Table) 06/11/21 06/11/21 06/11/21 Range/Units 00:15 00:15 06:05 WBC 17.8 H (3.8-10.6) k/uL RDW 15.8 H (11.5-15.5) % Neutrophils # 16.9 H (1.3-7.7) k/uL Lymphocytes # 0.4 L (1.0-4.8) k/uL Sodium 132 L (137-145) mmol/L BUN 6 L (7-17) mg/dL Creatinine 0.44 L (0.52-1.04) mg/dL Glucose 114 H (74-99) mg/dL Plasma Lactic Acid Dewayne 0.6 L (0.7-2.0) mmol/L C-Reactive Protein 3.3 H (<1.0) mg/dL Assessment and Plan Assessment: 1-patient presented to hospital with sepsis in this patient had fever elevated white count source is complicated diverticulitis with evidence of peridi verticular abscess and will need to cover for the resistant gram-negative as the patient did have a multiple histories of diverticulitis and exposure to antibiotics, unfortunately the abscess cannot be drained CT-guided at the patient seem to be electing to go for colostomy and surgical drainage of this abscess as per surgical team note (1) Sepsis Current Visit: Yes Status: Acute Code(s): A41.9 - SEPSIS, UNSPECIFIED ORGANISM SNOMED Code(s): 99830281 (2) Perforated diverticulum Current Visit: Yes Status: Acute Code(s): K57.80 - DVTRCLI OF INTEST, PART UNSP, W PERF AND ABSCESS W/O BLEED SNOMED Code(s): 86100893 (3) Intra-abdominal abscess Current Visit: Yes Status: Acute Code(s): K65.1 - PERITONEAL ABSCESS SNOMED Code(s): 00055023 Plan: 1-discontinue Levaquin 2-start the patient on Zosyn 3.375 g every 8 hours 3-we'll need a PICC line and IV antibiotics if the goal is no surgery at this point however we may not be able to completely cure of this infection with antibiotic alone and this was explained in detail with the patient We will follow on clinical condition and cultures to further adjust medication if needed Thank you for this consultation we will follow the patient along with you Time with Patient: Greater than 30
--- NOTE | 2021-06-12 09:38 | P.PN ---
Subjective Progress Note Date: 06/12/21 Patient seen and examined at bedside. Denies any significant abdominal pain. Denies fevers or chills. Is having flatus but denies any bowel movements. Objective - Vital Signs Vital signs: Vital Signs Temp 98.2 F 06/12/21 08:22 Pulse 82 06/12/21 08:22 Resp 18 06/12/21 08:22 BP 97/63 06/12/21 08:22 Pulse Ox 97 06/12/21 08:22 Intake & Output 06/11/21 06/12/21 06/12/21 18:59 06:59 18:59 Intake Total 1400 Balance 1400 Intake: Intake, IV Titration 1400 Amount Sodium Chloride 0.9% 1, 1300 000 ml @ 130 mls/hr IV . Q7H42M [facility] Rx#:[id number] PMX 500 100 mg In Saline 1 100ml.bag @ 100 mls/hr IVPB Q8H [facility] Rx#:[id number] Other: Voiding Method Toilet # Voids 4 2 1 - Constitutional General appearance: Present: cooperative, no acute distress - Respiratory Details: No difficulty with respiration - Gastrointestinal Gastrointestinal Comment(s): Soft, nontender, nondistended, no rebound, no guarding - Psychiatric Psychiatric: Present: A&O x's 3 - Labs CBC & Chem 7: 06/12/21 06:29 06/12/21 06:29 Labs: Abnormal Lab Results - Last 24 Hours (Table) 06/12/21 06/12/21 Range/Units 06:29 06:29 Hgb 11.3 L (11.4-16.0) gm/dL Hct 33.7 L (34.0-46.0) % RDW 15.9 H (11.5-15.5) % Lymphocytes # 0.4 L (1.0-4.8) k/uL Chloride 108 H (98-107) mmol/L Creatinine 0.48 L (0.52-1.04) mg/dL Calcium 8.1 L (8.4-10.2) mg/dL Alkaline Phosphatase 36 L (38-126) U/L C-Reactive Protein 5.6 H (<1.0) mg/dL Total Protein 5.6 L (6.3-8.2) g/dL Albumin 3.0 L (3.5-5.0) g/dL Microbiology - Last 24 Hours (Table) 06/11/21 00:15 Blood Culture - Preliminary Blood No Growth after 24 hours Assessment and Plan Plan: 46-year-old female with peridiverticular abscess. Spent approximately 20 minutes discussing the case with the patient. Plan is for IV antibiotics with infectious disease recommendations due to previous abscess. Patient would like to consider a nonsurgical route at this point to avoid ostomy creation. She is aware that without resolution of the abscess, she would likely require [facility] procedure. All questions were answered at bedside. We will continue with IV antibiotics and likely discharge with IV antibiotics based on infectious disease recommendations. Patient will require follow-up CT of the abdomen pelvis for evaluation of progress and resolution.
--- NOTE | 2021-06-12 13:29 | P.PN ---
Subjective Progress Note Date: 06/12/21 46 years female with history of diverticulitis who was admitted on 04/18 for acute complicated diverticulitis with foci of free intraperitoneal air. Patient was treated concentrated urine with IV antibiotics and bowel rest. She completed Augmentin and Flagyl as outpatient. Patient is doing well until 2 days ago when she started having high fever associated with chills. Patient had a slight discomfort in the pelvic area since she had her diverticulitis but denies any nausea or vomiting abdominal pain. Patient endorses intermittent episodes of diverticulitis for the past 2 years. Vitals in the ER patient had a temperature 103 pulse 76 respiratory rate 18 blood pressure 99/60. Patient has a leukocytosis of 17.8, sodium 132 potassium 3.7, chloride 100 bicarb 22 BUN 6 creatinine 0.44 glucose 114 lactic acid 0.6 CRP 3.3 UA was negative for infection. Patient was seen by surgery and plan for conservative management was made as there is not enough fluid to be drained by IR. Patient initiated on levofloxacin and metronidazole. Blood culture obtained. Infectious disease consulted CAT scan of the abdomen and pelvis obtained in the ER suggested diverticular abscess inferior to the mid sigmoid colon in region of extraluminal air bubbles on the CAT scan of 04/18/2021 Chest x-ray no acute intraluminal process. 06/12: Patient has been seen by Dr. Garg and he reviewed CAT scan with Dr. Gimenez and there does not seem to be significant amount of fluid to place catheter for drainage patient is currently on Flagyl and Zosyn. Consult in place with Dr. Rutledge. Patient has been afebrile for 24 hours. Heart rate 69, blood pressure 96/57, pulse ox 92-95% on room air. Repeat blood work reveals WBC 6.2, hemoglobin 11.3, platelet count 263. Sodium 138, potassium 3.8, chloride 108, CO2 24, BUN 8 and creatinine 0.48. Calcium 8.1. Total bilirubin 0.3, AST 27, ALT 12, alkaline phosphatase 36. Albumin 3.0. Blood culture no growth at 24 hours. Patient states that she has not had a bowel movement since Saturday. Her abdominal pain is improved. She is tolerating clear liquids with no nausea or vomiting. Patient does feel some pressure sensation with palpation to the left lower quadrant. ROS Constitutional: Endorses fever and chills, Denies lethargy, Denies malaise, Denies poor appetite, Denies weakness, Denies weight loss Eyes: denies decreased vision, denies diplopia, denies discharge, denies pain Ears: deny: decreased hearing Ears, nose, mouth and throat: Denies dental pain, Denies headache, Denies nasal discharge, Denies nose pain Cardiovascular: Denies chest pain, Denies decreased exercise tolerance, Denies edema, Denies high blood pressure, Denies irregular heart beat, Denies palpitations, Denies paroxysmal nocturnal dyspnea, Denies rapid heart beat, Denies shortness of breath Respiratory: Denies congestion, Denies cough, Denies cough with sputum, Denies dyspnea, Denies home oxygen, Denies wheezing Gastrointestinal: Denies abdominal pain, endorses pelvic discomfort Denies change in bowel habits, Denies coffee ground emesis, Denies early satiety, Denies excessive gas, Denies heartburn, Denies hematemesis, Denies hematochezia, Denies loss of appetite, Denies nausea, Denies vomiting Genitourinary: Denies dysuria, Denies flank pain, Denies kidney stones, Denies menorrhagia, Denies urgency, Denies urinary frequency Musculoskeletal: Denies gait dysfunction, Denies limitation of motion, Denies morning stiffness, Denies muscle cramps Integumentary: Denies rash, Denies wounds, Denies brittle nails, Denies change in hair/nails, Denies darkening of skin Neurological: Denies balance difficulties, Denies change in speech, Denies double vision, Denies gait dysfunction, Denies loss of vision, Denies motor disturbance, Denies numbness, Denies paralysis, Denies paresthesias, Denies seizures Psychiatric: Denies anxiety, Denies depression Endocrine: Denies excessive sweating, Denies excessive thirst, Denies high blood sugars, Denies palpitations Hematologic/Lymphatic: Denies easy bruising, Denies lymphadenopathy Physical exam - Constitutional General appearance: cooperative, no acute distress, - EENT Eyes: anicteric sclerae, PERRLA, normal appearance ENT: hearing grossly normal - Neck Neck: no lymphadenopathy, normal ROM, no other, no rigidity, no stridor, no thyromegaly - Respiratory Respiratory: bilateral: CTA, negative: diminished, dullness, rales, rhonchi - Cardiovascular Rhythm: regular Heart sounds: normal: S1, S2 Abnormal Heart Sounds: no systolic murmur, no diastolic murmur, no rub, no S3 Gallop, no S4 Gallop, no click, no other - Gastrointestinal General gastrointestinal: normal bowel sounds, soft mild tenderness to the left lower quadrant no guarding no rebound - Integumentary Integumentary: no rash - Neurologic Neurologic: CNII-XII intact no major motor or sensory deficit - Musculoskeletal Musculoskeletal: gait normal, strength equal bilaterally - Psychiatric Psychiatric: A&O x's 3, appropriate affect Assessment and plan #1 sepsis secondary to acute complicated diverticular abscess. Continue IV fluids at 130 mL per hour. Continue antibiotics with Zosyn and Flagyl. Infectious disease consulted. Surgery consulted. IR placed a drainage is on hold since there is not enough abscess to be drained. Blood culture obtained. Continue to monitor. Pain control with Tylenol #2 DVT prophylaxis and encourage ambulation and SCDs #3 GI prophylaxis with pantoprazole 40 mg once a day #4 Code status full code DISCHARGE PLAN Home Impression and plan of care have been directed as dictated by the signing physician. Opal Ni nurse practitioner acting as scribe for signing physician. Objective - Vital Signs Vital signs: Vital Signs Temp 98.3 F 06/12/21 02:00 Pulse 69 06/12/21 02:00 Resp 16 06/12/21 02:00 BP 96/57 06/12/21 02:00 Pulse Ox 92 L 06/12/21 02:00 Intake & Output 06/11/21 06/12/21 06/12/21 18:59 06:59 18:59 Intake Total 1400 Balance 1400 Intake: Intake, IV Titration 1400 Amount Sodium Chloride 0.9% 1, 1300 000 ml @ 130 mls/hr IV . Q7H42M LUIS Rx#:[id number] metroNIDAZOLE-NS PMX 500 100 mg In Saline 1 100ml.bag @ 100 mls/hr IVPB Q8H [facility]IS Rx#:[id number] Other: Voiding Method Toilet # Voids 4 2 - Labs CBC & Chem 7: 06/12/21 06:29 06/12/21 06:29 Labs: Abnormal Lab Results - Last 24 Hours (Table) 06/12/21 06/12/21 Range/Units 06:29 06:29 Hgb 11.3 L (11.4-16.0) gm/dL Hct 33.7 L (34.0-46.0) % RDW 15.9 H (11.5-15.5) % Lymphocytes # 0.4 L (1.0-4.8) k/uL Chloride 108 H (98-107) mmol/L Creatinine 0.48 L (0.52-1.04) mg/dL Calcium 8.1 L (8.4-10.2) mg/dL Alkaline Phosphatase 36 L (38-126) U/L C-Reactive Protein 5.6 H (<1.0) mg/dL Total Protein 5.6 L (6.3-8.2) g/dL Albumin 3.0 L (3.5-5.0) g/dL Microbiology - Last 24 Hours (Table) 06/11/21 00:15 Blood Culture - Preliminary Blood No Growth after 24 hours
[2021-06-12] MEDS: ONDANSETRON 4 MG/2 ML VIAL IVP PRN (15:02)
[2021-06-13] MEDS: SODIUM CHLORIDE 0.9% 1,000 ML IV SCH ×2 (01:45→09:10)
[2021-06-13] MEDS: metroNIDAZOLE-NS PMX 500 MG in SALINE 1 100ML.BAG IVPB SCH ×3 (03:14→19:44)
--- NOTE | 2021-06-13 08:18 | P.DS ---
Providers Date of admission: 06/11/21 03:14 Expected date of discharge: 06/15/21 Attending physician: Ana Abernathy MD Consults: 06/11/21 03:13 Consult Physician Urgent Consulting Provider: Brandi Garg Consult Reason/Comments: Peridiverticular abscess Do you want consulting provider notified?: Already Contacted 06/11/21 10:46 Consult Physician Stat Consulting Provider: Esme Sanon Consult Reason/Comments: Intra-abdominal abscess Do you want consulting provider notified?: Yes Primary care physician: [facility] Course: 46 years female with history of diverticulitis who was admitted on 04/18 for acute complicated diverticulitis with foci of free intraperitoneal air. Patient was treated concentrated urine with IV antibiotics and bowel rest. She completed Augmentin and Flagyl as outpatient. Patient is doing well until 2 days ago when she started having high fever associated with chills. Patient had a slight discomfort in the pelvic area since she had her diverticulitis but denies any nausea or vomiting abdominal pain. Patient endorses intermittent episodes of diverticulitis for the past 2 years. Vitals in the ER patient had a temperature 103 pulse 76 respiratory rate 18 blood pressure 99/60. Patient has a leukocytosis of 17.8, sodium 132 potassium 3.7, chloride 100 bicarb 22 BUN 6 creatinine 0.44 glucose 114 lactic acid 0.6 CRP 3.3 UA was negative for infection. Patient was seen by surgery and plan for conservative management was made as there is not enough fluid to be drained by IR. Patient initiated on levofloxacin and metronidazole. Blood culture obtained. Infectious disease consulted CAT scan of the abdomen and pelvis obtained in the ER suggested diverticular abscess inferior to the mid sigmoid colon in region of extraluminal air bubbles on the CAT scan of 04/18/2021 Chest x-ray no acute intraluminal process. 06/12: Patient has been seen by Dr. Garg and he reviewed CAT scan with Dr. Gimenez and there does not seem to be significant amount of fluid to place catheter for drainage patient is currently on Flagyl and Zosyn. Consult in place with Dr. Rutledge. Patient has been afebrile for 24 hours. Heart rate 69, blood pressure 96/57, pulse ox 92-95% on room air. Repeat blood work reveals WBC 6.2, hemoglobin 11.3, platelet count 263. Sodium 138, potassium 3.8, chloride 108, CO2 24, BUN 8 and creatinine 0.48. Calcium 8.1. Total bilirubin 0.3, AST 27, ALT 12, alkaline phosphatase 36. Albumin 3.0. Blood culture no growth at 24 hours. Patient states that she has not had a bowel movement since Saturday. Her abdominal pain is improved. She is tolerating clear liquids with no nausea or vomiting. Patient does feel some pressure sensation with palpation to the left lower quadrant. 06/13: Patient remains afebrile, heart rate 67, blood pressure 92/59, pulse ox 97% on room air. Abdominal x-ray reveals mild to moderate stool in the right side of the colon. On nonobstructive bowel gas pattern. No free air. Patient did have a bowel movement last evening was complaining of more abdominal bloating and does not feel well. Zofran given and patient is only on water since yesterday. PICC line will be ordered. Dr. Sanon is planning for IV antibiotics by the time of discharge. She has some left lower quadrant and epigastric tenderness but no rebound. Repeat blood work reveals sodium 136, potassium 3.8, chloride 105, CO2 15, BUN 5 and creatinine 0.44. Blood sugar 72. Liver function tests were normal. 06/14: Patient had PICC line insertion done yesterday. She is continued on Zosyn and Flagyl. She underwent CAT scan of the abdomen and pelvis which revealed abscess that is slightly larger in size but not drainable. Patient is followed by general surgery and infectious disease. She states she had a bowel movement today. She continues to have lower abdominal tenderness. Patient has been afebrile, heart rate 64, blood pressure 94/59, pulse ox 96% on room air. Sed rate 24, CRP is 3.1 which is improved from 5.6 on 06/12. 06/15: Dr. Sanon is recommended Zosyn for 2 week course and repeat CAT scan at that point. Patient has been afebrile, heart rate 66, blood pressure 110/69, pulse ox 99% on room air. Patient states she continues to have some discomfort in her abdomen but okay. Her most concerning problem is bloating. She feels like she can't eat very much. vault manager has made arrangements for IV antibiotics at home the patient will be discharged home today in stable condition. Assessment and plan #1 sepsis secondary to acute complicated diverticular abscess. #2 DVT prophylaxis #3 GI prophylaxis DISCHARGE PLAN Home Impression and plan of care have been directed as dictated by the signing physician. Opal Ni nurse practitioner acting as scribe for signing physician. Patient Condition at Discharge: Good Plan - Discharge Summary Discharge Rx Participant: Yes New Discharge Prescriptions: New Piperacillin-Tazobactam [Zosyn] 4.5 gm IVPB Q8HR #42 bag Ondansetron [Zofran] 4 mg PO Q8HR PRN #30 tab PRN Reason: Nausea Discharge Medication List Ondansetron [Zofran] 4 mg PO Q8HR PRN #30 tab 06/15/21 [Rx] Piperacillin-Tazobactam [Zosyn] 4.5 gm IVPB Q8HR #42 bag 06/15/21 [Rx] Follow up Appointment(s)/Referral(s[facility] Lázaro Odonnell DO [Primary Care Provider] - 1 Week (office will call with appointment. ) Brandi Garg DO [Doctor of Osteopathic Medicine] - 06/26/21 9:45 am Esme Sanon MD [STAFF PHYSICIAN] - 06/27/21 1:30 pm Ambulatory/Diagnostic Orders: Basic Metabolic Panel [LAB.AMB] Location: None Selected C Reactive Protein [LAB.AMB] Location: None Selected Complete Blood Count w/diff [LAB.AMB] Location: None Selected Erythrocyte Sedimentation Rate [LAB.AMB] Location: None Selected Activity/Diet/Wound Care/Special Instructions: Diet as tolerated per Dr. Garg. fluids are encouraged. infusion to come to your house with supplies and antibiotics today 06/15/2021 between 5-8pm. Please call [facility] when you arrive home to make sure all information is correct for delivery. Follow up with physicians as directed. appointments have been made for you. Have a repeat CT in 2 weeks to determine course and plan. Call physician with any questions comments concerns worsening returning symptoms, fever, not tolerating diet or fluids, pain not controlled by pain medications previously prescribed to you. Discharge Disposition: HOME WITH HOME HEALTH SERVICES
[2021-06-13] MEDS: PIPERACILLIN-TAZOBACTAM 3.375 GM in SODIUM CHLORIDE 0.9% 100 ML IVPB SCH ×3 (08:21→22:55)
[2021-06-13] MEDS: PANTOPRAZOLE 40 MG/10 ML VIAL IVP SCH (08:21)
--- NOTE | 2021-06-13 08:49 | PN ---
PROGRESS NOTE DATE OF SERVICE: 06/12/2021 REASON FOR FOLLOW UP: Diverticulitis with an abscess. INTERVAL HISTORY: Patient is afebrile. The patient is breathing comfortably. Abdominal pain is slightly decreased intensity. No chest pain, shortness of breath or cough. No nausea, vomiting or diarrhea. PHYSICAL EXAMINATION: Blood pressure 94/57, pulse of 73, temperature 98. She is 97% on room air. General description is a middle-aged female lying in bed in no distress. Respiratory system: Unlabored breathing. Clear to auscultation anteriorly. Heart S1, S2. Regular rate and rhythm. Abdomen: Soft, no tenderness. Extremities: No edema of the feet. LABS: Hemoglobin is 11.3, white count 6.2, BUN of 8, creatinine 0.48. Blood culture has been negative. DIAGNOSTIC IMPRESSION AND PLAN: Patient with complicated diverticulitis with diverticular abscess which cannot be drained, CT-guided and the patient did not want any surgery. The patient responded to the Zosyn. Will get a midline for outpatient IV Zosyn for [address] a [address] scan at that point. Questions and concerns were answered. MMODL / IJN: [id number] /
--- NOTE | 2021-06-13 09:09 | XR ---
EXAMINATION TYPE: XR abdomen 2V DATE OF EXAM: 06/13/2021 CLINICAL DATA: 46-year-old female with bloating, diverticular abscess, [facility] COMPARISON: Correlation CT 06/11/2021 FINDINGS: No evidence for free intraperitoneal air. A small air-fluid level within the left paramedian mid abdo men. No dilated small bowel loops. [id number] stool the right side of the colon. Pelvic phlebol iths. IMPRESSION: 1. Mild to moderate stool in the right side of the colon. 2. Nonobstructed bowel gas pattern. No free air seen.
[2021-06-13 10:18] LABS: ALT 12 U/L (4-34); AST 26 U/L (14-36); African American GFR (CKD) >90 (>60 ml/min/1.73 sqM); Albumin 3.7 g/dL (3.5-5.0); Alkaline Phosphatase 68 U/L (38-126); Anion Gap 16 mmol/L; Blood Urea Nitrogen 5 mg/dL (7-17); Calcium 8.4 mg/dL (8.4-10.2); Carbon Dioxide 15 mmol/L (22-30); Chloride 105 mmol/L (98-107); Glucose 72 mg/dL (74-99); Non-African American GFR(CKD) >90 (>60 ml/min/1.73 sqM); Potassium 3.8 mmol/L (3.5-5.1); Sodium 136 mmol/L (137-145); Total Bilirubin 0.5 mg/dL (0.2-1.3); Total Protein 6.3 g/dL (6.3-8.2)
[2021-06-13] MEDS: IOPAMIDOL CONTRAST (ORAL USE) VIAL PO PRN ×2 (10:33→11:31)
--- NOTE | 2021-06-13 11:23 | P.PN ---
Subjective Progress Note Date: 06/13/21 46 years female with history of diverticulitis who was admitted on 04/18 for acute complicated diverticulitis with foci of free intraperitoneal air. Patient was treated concentrated urine with IV antibiotics and bowel rest. She completed Augmentin and Flagyl as outpatient. Patient is doing well until 2 days ago when she started having high fever associated with chills. Patient had a slight discomfort in the pelvic area since she had her diverticulitis but denies any nausea or vomiting abdominal pain. Patient endorses intermittent episodes of diverticulitis for the past 2 years. Vitals in the ER patient had a temperature 103 pulse 76 respiratory rate 18 blood pressure 99/60. Patient has a leukocytosis of 17.8, sodium 132 potassium 3.7, chloride 100 bicarb 22 BUN 6 creatinine 0.44 glucose 114 lactic acid 0.6 CRP 3.3 UA was negative for infection. Patient was seen by surgery and plan for conservative management was made as there is not enough fluid to be drained by IR. Patient initiated on levofloxacin and metronidazole. Blood culture obtained. Infectious disease consulted CAT scan of the abdomen and pelvis obtained in the ER suggested diverticular abscess inferior to the mid sigmoid colon in region of extraluminal air bubbles on the CAT scan of 04/18/2021 Chest x-ray no acute intraluminal process. 06/12: Patient has been seen by Dr. Garg and he reviewed CAT scan with Dr. Gimenez and there does not seem to be significant amount of fluid to place catheter for drainage patient is currently on Flagyl and Zosyn. Consult in place with Dr. Rutledge. Patient has been afebrile for 24 hours. Heart rate 69, blood pressure 96/57, pulse ox 92-95% on room air. Repeat blood work reveals WBC 6.2, hemoglobin 11.3, platelet count 263. Sodium 138, potassium 3.8, chloride 108, CO2 24, BUN 8 and creatinine 0.48. Calcium 8.1. Total bilirubin 0.3, AST 27, ALT 12, alkaline phosphatase 36. Albumin 3.0. Blood culture no growth at 24 hours. Patient states that she has not had a bowel movement since Saturday. Her abdominal pain is improved. She is tolerating clear liquids with no nausea or vomiting. Patient does feel some pressure sensation with palpation to the left lower quadrant. 06/13: Patient remains afebrile, heart rate 67, blood pressure 92/59, pulse ox 97% on room air. Abdominal x-ray reveals mild to moderate stool in the right side of the colon. On nonobstructive bowel gas pattern. No free air. Patient did have a bowel movement last evening was complaining of more abdominal bloating and does not feel well. Zofran given and patient is only on water since yesterday. PICC line will be ordered. Dr. Sanon is planning for IV antibiotics by the time of discharge. She has some left lower quadrant and epigastric tenderness but no rebound. Repeat blood work reveals sodium 136, potassium 3.8, chloride 105, CO2 15, BUN 5 and creatinine 0.44. Blood sugar 72. Liver function tests were normal. ROS Constitutional: Endorses fever and chills, Denies lethargy, Denies malaise, Denies poor appetite, Denies weakness, Denies weight loss Eyes: denies decreased vision, denies diplopia, denies discharge, denies pain Ears: deny: decreased hearing Ears, nose, mouth and throat: Denies dental pain, Denies headache, Denies nasal discharge, Denies nose pain Cardiovascular: Denies chest pain, Denies decreased exercise tolerance, Denies edema, Denies high blood pressure, Denies irregular heart beat, Denies palpitations, Denies paroxysmal nocturnal dyspnea, Denies rapid heart beat, Denies shortness of breath Respiratory: Denies congestion, Denies cough, Denies cough with sputum, Denies dyspnea, Denies home oxygen, Denies wheezing Gastrointestinal: Denies abdominal pain, endorses pelvic pain Denies change in bowel habits, Denies coffee ground emesis, Denies early satiety, Denies excessive gas, Denies heartburn, Denies hematemesis, Denies hematochezia, Denies loss of appetite, Denies nausea, Denies vomiting Genitourinary: Denies dysuria, Denies flank pain, Denies kidney stones, Denies menorrhagia, Denies urgency, Denies urinary frequency Musculoskeletal: Denies gait dysfunction, Denies limitation of motion, Denies morning stiffness, Denies muscle cramps Integumentary: Denies rash, Denies wounds, Denies brittle nails, Denies change in hair/nails, Denies darkening of skin Neurological: Denies balance difficulties, Denies change in speech, Denies double vision, Denies gait dysfunction, Denies loss of vision, Denies motor disturbance, Denies numbness, Denies paralysis, Denies paresthesias, Denies seizures Psychiatric: Denies anxiety, Denies depression Endocrine: Denies excessive sweating, Denies excessive thirst, Denies high blood sugars, Denies palpitations Hematologic/Lymphatic: Denies easy bruising, Denies lymphadenopathy Physical exam - Constitutional General appearance: cooperative, no acute distress, - EENT Eyes: anicteric sclerae, PERRLA, normal appearance ENT: hearing grossly normal - Neck Neck: no lymphadenopathy, normal ROM, no other, no rigidity, no stridor, no thyromegaly - Respiratory Respiratory: bilateral: CTA, negative: diminished, dullness, rales, rhonchi - Cardiovascular Rhythm: regular Heart sounds: normal: S1, S2 Abnormal Heart Sounds: no systolic murmur, no diastolic murmur, no rub, no S3 Gallop, no S4 Gallop, no click, no other - Gastrointestinal General gastrointestinal: normal bowel sounds, soft, tenderness to the left lower quadrant and epigastric area, no guarding no rebound - Integumentary Integumentary: no rash - Neurologic Neurologic: CNII-XII intact no major motor or sensory deficit - Musculoskeletal Musculoskeletal: gait normal, strength equal bilaterally - Psychiatric Psychiatric: A&O x's 3, appropriate affect Assessment and plan #1 sepsis secondary to acute complicated diverticular abscess. Continue IV fluids changed to D5 0.9 normal saline at 125 mL per hour. Continue antibiotics with Zosyn and Flagyl. Infectious disease consulted. Surgery consulted. Blood culture obtained. Continue to monitor. Pain control with Tylenol. Repeat CAT scan of the abdomen and pelvis. PICC line ordered. #2 DVT prophylaxis and encourage ambulation and SCDs #3 GI prophylaxis with pantoprazole 40 mg once a day #4 Code status full code DISCHARGE PLAN Home Impression and plan of care have been directed as dictated by the signing physician. Opal Ni nurse practitioner acting as scribe for signing physician. Objective - Vital Signs Vital signs: Vital Signs Temp 97.7 F 06/13/21 08:44 Pulse 67 06/13/21 08:44 Resp 16 06/13/21 08:44 BP 92/59 06/13/21 08:44 Pulse Ox 97 06/13/21 08:44 Intake & Output 06/12/21 06/13/21 06/13/21 18:59 06:59 18:59 Other: Voiding Method Toilet # Voids 3 2 2 - Labs CBC & Chem 7: 06/12/21 06:29 06/13/21 08:51 Labs: Abnormal Lab Results - Last 24 Hours (Table) 06/13/21 Range/Units 08:51 Sodium 136 L (137-145) mmol/L Carbon Dioxide 15 L (22-30) mmol/L BUN 5 L (7-17) mg/dL Creatinine 0.44 L (0.52-1.04) mg/dL Glucose 72 L (74-99) mg/dL Microbiology - Last 24 Hours (Table) 06/11/21 00:15 Blood Culture - Preliminary Blood No Growth after 48 hours
[2021-06-13] MEDS: DEXTROSE 5%-0.9% NACL 1,000 ML IV SCH ×2 (11:29→22:29)
--- NOTE | 2021-06-13 12:33 | CT ---
EXAMINATION TYPE: CT abdomen pelvis w con DATE OF EXAM: 06/13/2021 HISTORY: Follow up abnormal CT. CT DLP: 591.5mGycm Automated Exposure Control for Dose Reduction was Utilized. CONTRAST: CT scan of the abdomen and pelvis is performed with oral and with IV Contrast, patient injected with 100 mL of Isovue 300. COMPARISON: Prior CT 2 days ago and older studies FINDINGS: LUNG BASES: No significant abnormality is appreciated. LIVER/GB: No significant abnormality is appreciated. PANCREAS: No significant abnormality is seen. SPLEEN: No significant abnormality is seen. ADRENALS: No significant abnormality is seen. KIDNEYS: No significant abnormality is seen. BOWEL: Oral contrast does not reach level of terminal ileum making evaluation of distal bowel subopti mal. No suspicious small or large bowel dilatation. Normal-appearing appendix. Mild/moderate concentric wall thickening in the left colon may be products of poor distention. Occasi onal scattered colonic diverticula. More prominent diverticulosis involving sigmoid colon particularl y proximal aspect near axial images 65 through 70 anterior to the uterus and left ovary. Mild fat str anding at this level remains present. Immediately inferior to this along the anterior superior wall of the bladder there is persistent hete rogeneous mass with suspected irregular thickened wall and increased central air measuring 3.6 x 3.1 x 2.5 cm axial image 75 and coronal image 27 increased in size from prior study. No significant inter nal fluid content identified. Persistent indistinct fat plane from the adjacent bladder. Linear exten poncho or fat stranding along superior margin likely contiguous with the inflammatory change from diver ticulitis. UTERUS/ADNEXA: Heterogeneous prominent lobulated anteverted likely fibroid uterus redemonstrated. Per sistent slightly enlarged left ovary with some cystic lesions axial image 62 unchanged from most rece nt CT. More normal size right ovary axial image 66 redemonstrated. LYMPH NODES: No greater than 1cm abdominal or pelvic lymph nodes are appreciated. OSSEOUS STRUCTURES: No significant abnormality is seen. OTHER: No significant additional abnormality is seen. IMPRESSION: Persistent acute diverticulitis proximal to mid sigmoid colon anterior pelvis with enlarg ing adjacent thin-walled abscess inferior to this having indistinct margin from the anterior superior bladder. Despite interval enlargement no significant internal drainable fluid identified.
[2021-06-13] MEDS ORDERED: LIDOCAINE 1% INJ 10MG/ML (20 ML MDV) SQ ONE (13:59)
--- NOTE | 2021-06-13 14:37 | IR ---
PICC LINE PLACEMENT: HISTORY: Infection requiring long-term antibiotic therapy PROCEDURE: Ultrasound and fluoroscopic guidance of PICC line placement. COMPLICATIONS: None ANESTHESIA: 1. 1% Lidocaine locally. FINDINGS/TECHNIQUE: The procedure was explained to the patient. The risks, complications, benefits and alternatives were discussed and any questions were answered. Informed consent was obtained. The patient was placed supine on the fluoroscopic table and prepped and draped in the usual sterile fash ion. Utilizing a 21 gauge needle and sonographic and fluoroscopic guidance, access in the basilic v ein was achieved and there is placement of a 0.018 guidewire. The vein is patent. A 4-F sheath was placed over the guidewire. The guidewire and dilator were removed and a 4-F. PICC line was placed th rough the sheath with the tip at the level of the SVC. The sheath was removed, the catheter was flus hed and sutured into position. The patient was stable throughout the procedure and remained stable u ramya discharge from the Department of Radiology. The vein puncture was patent under ultrasound. A pablo scale image was obtained to document patency of the vein punctured. All elements of the maximal barrier technique were utilized. FLUOROSCOPY TIME: 0.1 minutes and one image submitted IMPRESSION: Successful PICC line placement under ultrasound and fluoroscopic guidance.
--- NOTE | 2021-06-13 14:44 | PN ---
PROGRESS NOTE DATE OF SERVICE: 06/13/2021 REASON FOR FOLLOW UP: Diverticulitis with an abscess. INTERVAL HISTORY: The patient is afebrile. The patient mentioned not feeling that good this morning. She has been complaining of feeling full, nauseous and abdominal pain. No chest pain, shortness of breath or cough. PHYSICAL EXAMINATION: Blood pressure 92/59 with a pulse of 66, temperature is 97.7, she is 97% on room air. General description is a middle-aged female lying in bed in no distress. Respiratory system: Unlabored breathing, clear to auscultation anteriorly. Heart S1, S2. Regular rate and rhythm. Abdomen: Soft, mildly tender. No guarding. No rigidity. LABS: BUN of 5, creatinine 0.44. DIAGNOSTIC IMPRESSION AND PLAN: Patient with acute sigmoid diverticulitis with small abscess, now with worsening symptoms. Repeat CT has been ordered. Continue with Zosyn and monitor clinical course closely. MMODL / IJN: [id number] /
[2021-06-13] MEDS: ONDANSETRON 4 MG/2 ML VIAL IVP PRN (18:06)
--- NOTE | 2021-06-13 18:25 | P.PN ---
Subjective Progress Note Date: 06/13/21 Patient seen and examined at bedside. This morning, complained of lightheadedness and nausea. Was found to have low blood glucose. Also complained of abdominal pain in the left lower quadrant. Currently, on exam, patient feels much improved. She states her abdominal pain is much better. Objective - Vital Signs Vital signs: Vital Signs Temp 97.4 F L 06/13/21 15:16 Pulse 64 06/13/21 15:21 Resp 16 06/13/21 15:16 BP 91/57 06/13/21 15:16 Pulse Ox 96 06/13/21 15:16 Intake & Output 06/12/21 06/13/21 06/13/21 18:59 06:59 18:59 Other: Voiding Method Toilet # Voids 3 2 2 - Constitutional General appearance: Present: cooperative, no acute distress - Gastrointestinal Gastrointestinal Comment(s): Soft, some tenderness to deep palpation in left lower quadrant and suprapubic, nondistended, no rebound, no guarding - Psychiatric Psychiatric: Present: A&O x's 3 - Labs CBC & Chem 7: 06/12/21 06:29 06/13/21 08:51 Labs: Abnormal Lab Results - Last 24 Hours (Table) 06/13/21 Range/Units 08:51 Sodium 136 L (137-145) mmol/L Carbon Dioxide 15 L (22-30) mmol/L BUN 5 L (7-17) mg/dL Creatinine 0.44 L (0.52-1.04) mg/dL Glucose 72 L (74-99) mg/dL Microbiology - Last 24 Hours (Table) 06/11/21 00:15 Blood Culture - Preliminary Blood No Growth after 48 hours Assessment and Plan Plan: Based on her previous abdominal pain today, repeat CT of the abdomen and pelvis was performed. CT was reviewed with slightly increase in size of the p eridiverticular abscess cavity, however no significant fluid inside with expanding air bubble. This was discussed with the patient. At this point, it is reasonable to continue antibiotic coverage for peridiverticular abscess, however patient is aware that surgical intervention may still be required resulting in an ostomy formation. Patient will continue with the IV antibiotic plan at this time. All questions were answered at bedside.
[2021-06-13 22:25] LABS: HCT 37.3 % (34.0-46.0); HGB 11.9 gm/dL (11.4-16.0); Hypochromasia Slight; MCH 28.7 pg (25.0-35.0); MCV 89.6 fL (80.0-100.0); Mean Platelet Volume 9.3; Platelet Count 299 k/uL (150-450); RBC 4.16 m/uL (3.80-5.40); WBC 8.3 k/uL (3.8-10.6)
[2021-06-14] MEDS: metroNIDAZOLE-NS PMX 500 MG in SALINE 1 100ML.BAG IVPB SCH ×3 (02:58→20:38)
[2021-06-14] MEDS: DEXTROSE 5%-0.9% NACL 1,000 ML IV SCH ×3 (03:02→20:38)
[2021-06-14] MEDS: PANTOPRAZOLE 40 MG/10 ML VIAL IVP SCH (07:59)
[2021-06-14] MEDS: PIPERACILLIN-TAZOBACTAM 3.375 GM in SODIUM CHLORIDE 0.9% 100 ML IVPB SCH ×3 (08:00→23:39)
--- NOTE | 2021-06-14 14:56 | P.PN ---
Subjective Progress Note Date: 06/14/21 46 years female with history of diverticulitis who was admitted on 04/18 for acute complicated diverticulitis with foci of free intraperitoneal air. Patient was treated concentrated urine with IV antibiotics and bowel rest. She completed Augmentin and Flagyl as outpatient. Patient is doing well until 2 days ago when she started having high fever associated with chills. Patient had a slight discomfort in the pelvic area since she had her diverticulitis but denies any nausea or vomiting abdominal pain. Patient endorses intermittent episodes of diverticulitis for the past 2 years. Vitals in the ER patient had a temperature 103 pulse 76 respiratory rate 18 blood pressure 99/60. Patient has a leukocytosis of 17.8, sodium 132 potassium 3.7, chloride 100 bicarb 22 BUN 6 creatinine 0.44 glucose 114 lactic acid 0.6 CRP 3.3 UA was negative for infection. Patient was seen by surgery and plan for conservative management was made as there is not enough fluid to be drained by IR. Patient initiated on levofloxacin and metronidazole. Blood culture obtained. Infectious disease consulted CAT scan of the abdomen and pelvis obtained in the ER suggested diverticular abscess inferior to the mid sigmoid colon in region of extraluminal air bubbles on the CAT scan of 04/18/2021 Chest x-ray no acute intraluminal process. 06/12: Patient has been seen by Dr. Garg and he reviewed CAT scan with Dr. Gimenez and there does not seem to be significant amount of fluid to place catheter for drainage patient is currently on Flagyl and Zosyn. Consult in place with Dr. Rutledge. Patient has been afebrile for 24 hours. Heart rate 69, blood pressure 96/57, pulse ox 92-95% on room air. Repeat blood work reveals WBC 6.2, hemoglobin 11.3, platelet count 263. Sodium 138, potassium 3.8, chloride 108, CO2 24, BUN 8 and creatinine 0.48. Calcium 8.1. Total bilirubin 0.3, AST 27, ALT 12, alkaline phosphatase 36. Albumin 3.0. Blood culture no growth at 24 hours. Patient states that she has not had a bowel movement since Saturday. Her abdominal pain is improved. She is tolerating clear liquids with no nausea or vomiting. Patient does feel some pressure sensation with palpation to the left lower quadrant. 06/13: Patient remains afebrile, heart rate 67, blood pressure 92/59, pulse ox 97% on room air. Abdominal x-ray reveals mild to moderate stool in the right side of the colon. On nonobstructive bowel gas pattern. No free air. Patient did have a bowel movement last evening was complaining of more abdominal bloating and does not feel well. Zofran given and patient is only on water since yesterday. PICC line will be ordered. Dr. Sanon is planning for IV antibiotics by the time of discharge. She has some left lower quadrant and epigastric tenderness but no rebound. Repeat blood work reveals sodium 136, potassium 3.8, chloride 105, CO2 15, BUN 5 and creatinine 0.44. Blood sugar 72. Liver function tests were normal. 06/14: Patient had PICC line insertion done yesterday. She is continued on Zosyn and Flagyl. She underwent CAT scan of the abdomen and pelvis which revealed abscess that is slightly larger in size but not drainable. Patient is followed by general surgery and infectious disease. She states she had a bowel movement today. She continues to have lower abdominal tenderness. Patient has been afebrile, heart rate 64, blood pressure 94/59, pulse ox 96% on room air. Sed rate 24, CRP is 3.1 which is improved from 5.6 on 06/12. ROS Constitutional: Endorses fever and chills, Denies lethargy, Denies malaise, Denies poor appetite, Denies weakness, Denies weight loss Eyes: denies decreased vision, denies diplopia, denies discharge, denies pain Ears: deny: decreased hearing Ears, nose, mouth and throat: Denies dental pain, Denies headache, Denies nasal discharge, Denies nose pain Cardiovascular: Denies chest pain, Denies decreased exercise tolerance, Denies edema, Denies high blood pressure, Denies irregular heart beat, Denies palpitations, Denies paroxysmal nocturnal dyspnea, Denies rapid heart beat, Denies shortness of breath Respiratory: Denies congestion, Denies cough, Denies cough with sputum, Denies dyspnea, Denies home oxygen, Denies wheezing Gastrointestinal: Denies abdominal pain, endorses pelvic pain/abd Denies change in bowel habits, Denies coffee ground emesis, Denies early satiety, Denies excessive gas, Denies heartburn, Denies hematemesis, Denies hematochezia, Denies loss of appetite, Denies nausea, Denies vomiting Genitourinary: Denies dysuria, Denies flank pain, Denies kidney stones, Denies menorrhagia, Denies urgency, Denies urinary frequency Musculoskeletal: Denies gait dysfunction, Denies limitation of motion, Denies morning stiffness, Denies muscle cramps Integumentary: Denies rash, Denies wounds, Denies brittle nails, Denies change in hair/nails, Denies darkening of skin Neurological: Denies balance difficulties, Denies change in speech, Denies double vision, Denies gait dysfunction, Denies loss of vision, Denies motor disturbance, Denies numbness, Denies paralysis, Denies paresthesias, Denies seizures Psychiatric: Denies anxiety, Denies depression Endocrine: Denies excessive sweating, Denies excessive thirst, Denies high blood sugars, Denies palpitations Hematologic/Lymphatic: Denies easy bruising, Denies lymphadenopathy Physical exam - Constitutional General appearance: cooperative, no acute distress, - EENT Eyes: anicteric sclerae, PERRLA, normal appearance ENT: hearing grossly normal - Neck Neck: no lymphadenopathy, normal ROM, no other, no rigidity, no stridor, no thyromegaly - Respiratory Respiratory: bilateral: CTA, negative: diminished, dullness, rales, rhonchi - Cardiovascular Rhythm: regular Heart sounds: normal: S1, S2 Abnormal Heart Sounds: no systolic murmur, no diastolic murmur, no rub, no S3 Gallop, no S4 Gallop, no click, no other - Gastrointestinal General gastrointestinal: normal bowel sounds, soft, tenderness to the left lower quadrant, no guarding no rebound - Integumentary Integumentary: no rash - Neurologic Neurologic: CNII-XII intact no major motor or sensory deficit - Musculoskeletal Musculoskeletal: gait normal, strength equal bilaterally - Psychiatric Psychiatric: A&O x's 3, appropriate affect Assessment and plan #1 sepsis secondary to acute complicated diverticular abscess. Continue IV fluids changed to D5 0.9 normal saline at 125 mL per hour. Continue antibiotics with Zosyn and Flagyl. Consults with Dr. Garg and Dr. Sanon appreciated. Blood culture obtained. Continue to monitor. Pain control with Tylenol. Repeat CAT scan of the abdomen and pelvis as above. PICC line has been inserted #2 DVT prophylaxis and encourage ambulation and SCDs #3 GI prophylaxis with pantoprazole 40 mg once a day #4 Code status full code DISCHARGE PLAN Home Impression and plan of care have been directed as dictated by the signing physician. Opal Ni nurse practitioner acting as scribe for signing physician. Objective - Vital Signs Vital signs: Vital Signs Temp 98.0 F 06/14/21 08:12 Pulse 64 06/14/21 08:12 Resp 16 06/14/21 08:12 BP 94/59 06/14/21 08:12 Pulse Ox 96 06/14/21 08:12 Intake & Output 06/13/21 06/14/21 06/14/21 18:59 06:59 18:59 Intake Total 1250 Balance 1250 Intake: Intake, IV Titration 1250 Amount Dextrose 5%-0.9% NaCl 1, 1250 000 ml @ 125 mls/hr IV . Q8H [facility] Rx#:[id number] Other: # Voids 2 3 - Labs CBC & Chem 7: 06/13/21 08:51 06/13/21 08:51 Labs: Abnormal Lab Results - Last 24 Hours (Table) 06/13/21 06/13/21 Range/Units 08:51 08:51 RDW 16.0 H (11.5-15.5) % Sodium 136 L (137-145) mmol/L Carbon Dioxide 15 L (22-30) mmol/L BUN 5 L (7-17) mg/dL Creatinine 0.44 L (0.52-1.04) mg/dL Glucose 72 L (74-99) mg/dL Microbiology - Last 24 Hours (Table) 06/11/21 00:15 Blood Culture - Preliminary Blood No Growth after 72 hours
[2021-06-14] MEDS: ONDANSETRON 4 MG/2 ML VIAL IVP PRN (19:29)
--- NOTE | 2021-06-14 23:42 | PN ---
PROGRESS NOTE DATE OF SERVICE: 06/14/2021 REASON FOR FOLLOWUP: Diverticulitis with abscess. INTERVAL HISTORY: Patient is afebrile. The patient denies any further nausea or vomiting. Still complaining of pain to the left lower abdominal pain but no worsening. No chest pain, shortness of breath or cough and no new symptoms. PHYSICAL EXAMINATION: Blood pressure 111/70 with a pulse of 66, temperature 98.3. She is 98% on room air. General description is a middle-aged female lying in bed in no distress. Respiratory system: Unlabored breathing, clear to auscultation. Heart: S1, S2. Regular rate and rhythm. Abdomen: Soft, no tenderness. LABS: CRP is 3.1. DIAGNOSTIC IMPRESSION AND PLAN: Patient with acute diverticulitis with peridiverticular abscess, slight worsening on the CT. However, no evidence of any drainable abscess. The patient is covered with Zosyn. Plan for 2 weeks of Zosyn and repeat CT at that point. Questions and concerns were answered. MMODL / IJN: [id number] /
[2021-06-15 01:11] VITALS: RESP 16
[2021-06-15] MEDS: metroNIDAZOLE-NS PMX 500 MG in SALINE 1 100ML.BAG IVPB SCH ×2 (03:33→11:47)
[2021-06-15] MEDS: DEXTROSE 5%-0.9% NACL 1,000 ML IV SCH ×2 (03:35→09:39)
[2021-06-15 05:57] LABS: Anisocytosis Slight; Basophils % (A) 1 %; Eosinophils # (A) 0.1 k/uL (0-0.7); Eosinophils % (A) 2 %; HCT 32.8 % (34.0-46.0); HGB 11.1 gm/dL (11.4-16.0); Lymphocytes # (A) 0.9 k/uL (1.0-4.8); Lymphocytes % (A) 19 %; MCH 28.3 pg (25.0-35.0); MCHC 33.7 g/dL (31.0-37.0); Mean Platelet Volume 7.2; Monocytes # (A) 0.4 k/uL (0-1.0); Monocytes % (A) 8 %; Neutrophils # (A) 3.2 k/uL (1.3-7.7); Neutrophils % (A) 67 %; Platelet Count 350 k/uL (150-450); RBC 3.91 m/uL (3.80-5.40); RDW 16.4 % (11.5-15.5); WBC 4.7 k/uL (3.8-10.6)
[2021-06-15 08:46] VITALS: BP 110/69; PULSE 66; TEMP 98.3
[2021-06-15] MEDS: PIPERACILLIN-TAZOBACTAM 3.375 GM in SODIUM CHLORIDE 0.9% 100 ML IVPB SCH (08:52)
[2021-06-15] MEDS: PANTOPRAZOLE 40 MG/10 ML VIAL IVP SCH (08:53)
--- NOTE | 2021-06-15 12:56 | P.PN ---
Subjective Progress Note Date: 06/15/21 Patient seen and examined at bedside. Abdominal pain improved. Patient still complaining of some nausea. Did have multiple bowel movements. Tolerating diet. Objective - Vital Signs Vital signs: Vital Signs Temp 98.3 F 06/15/21 08:25 Pulse 66 06/15/21 08:25 Resp 16 06/15/21 08:25 BP 110/69 06/15/21 08:25 Pulse Ox 99 06/15/21 08:25 Intake & Output 06/14/21 06/15/21 06/15/21 18:59 06:59 18:59 Intake Total 2350 1550 Balance 2350 1550 Intake: Intake, IV Titration 1350 1550 Amount Dextrose 5%-0.9% NaCl 1, 1250 1250 000 ml @ 125 mls/hr IV . Q8H [facility] Rx#:[id number] Piperacillin-Tazobactam 3 100 .375 gm In Sodium Chloride 0.9% 100 ml @ 25 mls/hr IVPB Q8HR [facility] Rx# :[id number] metroNIDAZOLE-NS PMX 500 100 200 mg In Saline 1 100ml.bag @ 100 mls/hr IVPB Q8H [facility] Rx#:[id number] Oral 1000 Other: Voiding Method Toilet # Voids 2 3 1 # Bowel Movements 1 - Constitutional General appearance: Present: cooperative, no acute distress - Gastrointestinal General gastrointestinal: Present: soft. Absent: tenderness - Psychiatric Psychiatric: Present: A&O x's 3 - Labs CBC & Chem 7: 06/15/21 05:42 06/13/21 08:51 Labs: Abnormal Lab Results - Last 24 Hours (Table) 06/15/21 Range/Units 05:42 Hgb 11.1 L (11.4-16.0) gm/dL Hct 32.8 L (34.0-46.0) % RDW 16.4 H (11.5-15.5) % Lymphocytes # 0.9 L (1.0-4.8) k/uL Microbiology - Last 24 Hours (Table) 06/11/21 00:15 Blood Culture - Preliminary Blood No Growth after 96 hours Assessment and Plan Plan: 46-year-old female with peridiverticular abscess. Patient would like to continue to attempt IV antibiotic therapy for resolution of the abscess with anticipation for low anterior resection in the future. Currently, the patient will be discharged with PICC line in place and IV antibiotics. This is scheduled for today. She will follow-up in [address] is done for further recommendations. Patient was instructed to call the office sooner or return to the emergency department with any worsening of her clinical symptoms. Diet instructions were provided. All questions were answered.
--- NOTE | 2021-06-15 13:47 | PN ---
PROGRESS NOTE DATE OF SERVICE: 06/15/2021. REASON FOR FOLLOWUP: Diverticulitis with an abscess. INTERVAL HISTORY: Patient is afebrile. The patient is breathing comfortably. The patient abdominal pain is currently controlled. No nausea, vomiting. No chest pain, shortness of breath or cough. Did have bowel movement. PHYSICAL EXAMINATION: Blood pressure 110/60, pulse of 63, temperature 98.9. She is 99% on room air. General description is a middle-aged female lying in bed in no distress. Respiratory system: Unlabored breathing, clear to auscultation anteriorly. Heart S1, S2. Regular rate and rhythm. Abdomen: Soft, no tenderness. LABS: Hemoglobin 11.1, white count 4.7. DIAGNOSTIC IMPRESSION AND PLAN: Patient with peridiverticular abscess and diverticulitis. The patient seemed to be slowly clinically responding to the Zosyn to continue for [address] at that point. If no improvement, she may need laparoscopic drainage or surgery. This was explained to the patient in layman's terms. MMODL / IJN: [id number] /
== END 2021-06-15 13:28 | disposition home health service (06) | DRG 872 ==
LOC: EC 22:42 → 6PED 06-11 03:14
PROVIDERS: ADMIT Internal Medicine; ATTEND Internal Medicine
PROC: B5181ZA Fluoroscopy of Superior Vena Cava using Low Osmolar Contrast, Guidance (ICD-10-PCS; 2021-06-13)
PROC: B548ZZA Ultrasonography of Superior Vena Cava, Guidance (ICD-10-PCS; 2021-06-13)
PROC: 02HV33Z Insertion of Infusion Device into Superior Vena Cava, Percutaneous Approach (ICD-10-PCS; principal; 2021-06-13 12:30)
DX: A41.9 Sepsis, unspecified organism (principal); K57.20 Diverticulitis of large intestine with perforation and abscess without bleeding; T80.92XA Unspecified transfusion reaction, initial encounter; R79.82 Elevated C-reactive protein (CRP); M25.50 Pain in unspecified joint; Y84.8 Other medical procedures as the cause of abnormal reaction of the patient, or of later complication, without mention of misadventure at the time of the procedure; Z79.2 Long term (current) use of antibiotics; Z79.899 Other long term (current) drug therapy; Z98.51 Tubal ligation status; Z90.49 Acquired absence of other specified parts of digestive tract
CPT/HCPCS: 36415; 36573; 71046; 74019; 74177; 80053; 81003; 83605; 85025; 85027; 85652; 86140; 87040; 96374; 99285

== ENCOUNTER 2021-07-24 12:49 | Day surgery (SDC) | payer OTHER ==
[2021-07-24] MEDS ORDERED: HYDROmorphone 0.5 MG/0.5 ML SYRINGE IVP STA (14:42)
--- NOTE | 2021-07-24 15:44 | CT ---
EXAMINATION TYPE: CT guided abscess drainage DATE OF EXAM: 07/24/2021 COMPARISON: 06/13/2021 HISTORY: Pelvic abscess CT DLP: 2318 mGycm The procedure is discussed with the patient, the risks, complications, benefits and alternatives, wer e discussed and any questions were answered. Informed consent was obtained. The patient is placed p madan on the CT table, prepped and draped in the usual sterile fashion. Utilizing a 22-gauge Chiba needle access into the pelvic abscess was achieved and there is placement of an 0.018 guidewire. Conversion to an 0.035 system and placement of a 6.5 Turkish drainage catheter. Sample was obtained and sent to pathology for analysis.. All elements of maximal barrier technique were utilized. The patient remained stable throughout the procedure with no immediate postprocedural complication. IMPRESSION: 1. Successful CT guided abscess drainage catheter insertion within pelvic abscess.
[2021-07-24 17:07] VITALS: RESP 16
[2021-07-24 17:08] VITALS: BP 103/55; PULSE 64
[2021-07-24 17:17] VITALS: TEMP 98.5
== END 2021-07-24 17:20 | disposition home or self-care (01) ==
LOC: RADPROMAIN 12:49
PROVIDERS: ATTEND Surgery
DX: N73.9 Female pelvic inflammatory disease, unspecified (principal)
CPT/HCPCS: 10030; 87070; 87205; 87075; 87077; 87186; 75989; J1170

== ENCOUNTER → 2022-05-11 | Outpatient (CLI) | payer OTHER ==
--- NOTE | 2022-05-11 11:29 | CA ---
Exercise Stress Test Report Name: Amelie Cedeno Exam Date: 05/11/2022 09:06 Exam Location: [place] Stress Ht (in): 63 Wt (lb): 175 BSA: 1.83 Ordering Phys: Lázaro Odonnell DO Referring Phys: ASHWIN, Technologist: Lázaro Tan Age: 47 Gender: F : 1975 Procedure CPT: Indications: R07.9 chest pain unspecified ICD-10 Codes: Patient History: Chest Pain and family history of heart disease Medications: Meds past 24 hrs: Pretest Chest Pain: STRESS TEST Torin Protocol Exercise Duration (min:sec): 10:[address] Depressions (mm): Angina Score: Reynolds Score: Resting HR (bpm): 68 Peak HR (bpm): 168 Resting BP (mmHg): 89 / 65 Peak BP (mmHg): 142 / 67 MPHR: 174 Target HR: 148 % MPHR: 97 METS: 12.1 Total Dose: Peak Dose: Atropine: Double Product: 42734 BP Response: Stress Termination: Reached target heart rate Stress Symptoms: No chest pain or symptoms Stress Summary: ECG ANALYSIS Resting ECG: Stress ECG: CONCLUSIONS Normal heart rate and blood pressure response during stress testing Excellent exercise capacity 10-1/2 minutes on a Torin protocol No ECG evidence for ischemia No arrhythmias Impression Normal stress test Dr. Americo Mcgee MD (Electronically Signed) Final Date: 11 May 2022 11:28
== END | disposition home or self-care (01) ==
LOC: RADNMMAIN 08:39
PROVIDERS: ATTEND Family Medicine
DX: R07.9 Chest pain, unspecified (principal)
CPT/HCPCS: 93017

== ENCOUNTER → 2023-10-18 | Outpatient (CLI) | payer OTHER ==
--- NOTE | 2023-10-18 09:49 | XR ---
EXAMINATION TYPE: XR chest 2V DATE OF EXAM: 10/18/2023 COMPARISON: 06/10/2020 TECHNIQUE: PA and lateral views submitted. HISTORY: Cough FINDINGS: The lungs are clear and there is no pneumothorax, pleural effusion, or focal pneumonia. Heart size normal and no overt failure. Osseous structures demonstrate hypertrophic and degenerative changes of the spine. IMPRESSION: 1. No acute process.
== END | disposition home or self-care (01) ==
LOC: RADXRMAIN 08:51
PROVIDERS: ATTEND Family Medicine
DX: J20.9 Acute bronchitis, unspecified (principal); R05.9 Cough, unspecified
CPT/HCPCS: 71046